=== PATIENT | female | born 1950 | race Caucasian/White ===

== ENCOUNTER 2024-01-25 15:00 | Outpatient (OUT) | payer MEDICARE, MEDICAID, SELFPAY | END 2024-01-25 15:01 | disposition home or self-care (01) | LOC: SLEEP 01-26 14:50 | PROVIDERS: PCP Family Medicine; Visit Provider Family Medicine | DX: G47.33 Obstructive sleep apnea (adult) (pediatric) (principal); G25.81 Restless legs syndrome | CPT/HCPCS: 95806 ==

== ENCOUNTER 2024-07-05 15:30 | Outpatient (OUT) | payer MEDICARE, MEDICAID, SELFPAY | END 2024-07-05 15:31 | disposition home or self-care (01) | LOC: SLEEP 07-06 14:47 | PROVIDERS: PCP Psychiatry & Neurology Neurology; Visit Provider Psychiatry & Neurology Neurology | DX: G47.33 Obstructive sleep apnea (adult) (pediatric) (principal) | CPT/HCPCS: 95806 ==

== ENCOUNTER 2024-11-08 11:24 | Observation (INO) | payer MEDICARE, MEDICAID, SELFPAY ==
[2024-11-08] VITALS (26 sets, daily range): BP systolic 128–153; BP diastolic 55–104; PULSE 66–114; TEMP 36.7–36.8; O2SAT 70–98; BMI 56.0; BMI 52.4
--- OUTSIDE RECORDS SUMMARY | 2024-11-08 11:47 | XMS_ITS | CCD ---
Author Organization [facility] Care Team Providers Care Web Production Manager Name Role Phone NEGAR, DR OVIDIO Kyle Admitting Unavailable NADERER, DR OVIDIO Kyle Attending Unavailable NADERER, DR OVIDIO Kyle Primary Care Unavailable NADERER, DR OVIDIO Kyle Consulting Unavailable GRILLIS, DR SERA Ortiz Admitting Unavailabl e GRILLIS, DR SERA Ortiz Attending Unavailabl e NADERER, DR OVIDIO Kyle Primary Care Unavailable Radhaerer Ovidio MOHAN Primary Care Provider OVIDIO BILLS Referring Unavailable NADERER, OVIDIO Primary Care Unavailable LIGIBELJOHN Referring Unavailable NADERER, OVIDIO Primary Care Unavailable PRAMODMARK Attending Unavailable NADERER, OVIDIO Referring Unavailable NADERER, OVIDIO Primary Care Unavailable PRAMODMARK Attending Unavailable NADERER, OVIDIO Referring Unavailable NADERER, OVIDIO Primary Care Unavailable NADERER, OVIDIO Referring Unavailable NADERER, OVIDIO Primary Care Unavailable NADERER, OVIDIO Primary Care Unavailable FREDISEPIDEH Attending Unavailable PRAMODMARK Attending Unavailable NADERER, OVIDIO Referring Unavailable NADERER, OVIDIO Primary Care Unavailable PRAMODMARK Attending Unavailable NADERER, OVIDIO Referring Unavailable NADERER, OVIDIO Primary Care Unavailable NADERER, OVIDIO Referring Unavailable NADERER, OVIDIO Primary Care Unavailable RUSHER, DICK Kyle Attending Unavailable RUSHER, DICK Kyle Attending Unavailable NADERER, OVIDIO Attending Unavailable RUSHER, DICK Kyle Attending Unavailable RUSHER, DICK Kyle Attending Unavailable NADERER, OVIDIO Attending Unavailable NADERER, OVIDIO Attending Unavailable RUSHER, DICK Kyle Attending Unavailable AGUSPARTH Attending Unavailable NADERER, OVIDIO Attending Unavailable DOS SANTOSFABIAN Attending Unavailable GILLMOR, CHOCO Attending Unavailable NADERER, OVIDIO Attending Unavailable Allergies Allergy Classification Reported Allergen(s) Allergy Type Date of Onset Reaction(s) Facility (1 source) Allopurinol Drug Allergy [facility] (2 sources) Aspirin; Translations: [ASPIRIN] Drug Allergy 7 [facility] (1 source) Cephalexin Drug Allergy [facility] (2 sources) NSAIDs; Translations: [NSAIDS (NON-STEROIDAL ANTI-INFLAMMATO RY DRUG)] Drug allergy (disorder) 7 [facility] (20 sources) Cephalexin; Translations: [CEPHALEXIN] Drug Allergy 8 [facility] (20 sources) metFORMIN Drug Allergy 4 GI intolerance [facility] (20 sources) Non-steroidal anti-inflammato ry agent Drug Intolerance 7 [facility] (20 sources) Tetanus vaccine; Translations: [TETANUS TOXOID] Propensity to adverse reactions 7 Unknown [facility] (6 sources) Sertraline Drug Allergy 3 [facility] (1 source) gabapentin; Translations: [GABAPENTIN] Drug Allergy 9 [facility] (1 source) Ibuprofen; Translations: [IBUPROFEN] Drug Allergy 7 [facility] (1 source) Naproxen; Translations: [NAPROXEN] Drug Allergy 7 [facility] Medications Current Medications Medication Drug Class(es) Dates Sig (Normalized) Sig (Original) acetaminophen 500 mg oral tablet (20 sources) acetaminophen (Tylenol) 500 MG tablet 2 tablets Orally once or twice a day prn fever Active acetaminophen 325 mg / HYDROcodone bitartrate 5 mg oral tablet (13 sources) Opioid Agonist Start: 09-28-2024 End: 10-28-2024 take 1 tablet by mouth four times daily as needed for pain HYDROcodone-acetami nophen ([place]) 5-325 MG tablet Indications: Fibromyalgia Take 1 tablet by mouth 4 (four) times a day as needed for severe pain 120 tablet 09/28/2024 10/28/2024 Active Start: 07-26-2024 End: 09-24-2024 take 1 tablet by mouth four times daily as needed for pain HYDROcodone-acetaminophen ([place]) 5-325 MG tablet Indications: Fibromyalgia Take 1 tablet by mouth 4 (four) times a day as needed for severe pain 120 tablet 08/25/2024 09/24/2024 Active acetaminophen 325 mg / oxyCODONE hydrochloride 5 mg oral tablet (18 sources) Opioid Agonist Start: 05-02-2024 End: 07-09-2024 take 1 tablet by mouth four times daily as needed for pain oxyCODONE-acetaminophen (Percocet) 5-325 MG tablet Indications: Spondylosis of 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 Take 1 tablet by mouth 4 (four) times a day as needed for severe pain 120 tablet 06/09/2024 07/09/2024 Active Start: 03-30-2024 take 1 tablet by clarissa th four times daily as needed for pain oxyCODONE-acetaminophen (Percocet) 5-325 MG tablet Indications: Spondylosis of 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 Take 1 tablet by mouth 4 (four) times a day as needed for severe pain 120 tablet 03/30/2024 Active albuterol 0.83 mg/ml inhalation solution (20 sources) beta2-Adrenergic Agonist Start: 08-23-2024 End: 08-25-2024 albuterol (2.5 MG/3ML) 0.083% nebulizer solution Indications: Shortness of breath Take 3 mL (2.5 mg) by nebulization every 4 (four) hours if needed for wheezing or shortness of breath 75 mL 3 08/25/2024 Active Start: 11-09-2023 take 2 puff(s) by in halation every four hours as needed albuterol HFA 90 mcg/act inhaler Indications: Mild intermittent asthma without complication (CMS/HCC) INHALE 2 PUFFS EVERY 4 HOURS NEEDED 8 g 3 11/09/2023 Active End: 08-23-2024 albuterol (2.5 MG/3ML) 0.083 % nebulizer solution as directed Inhalation 3 ml nebulizer bid prn 08/23/2024 Discontinued (Reorder) alendronic acid 70 mg oral tablet (20 sources) Bisphosphonate Start: 10-14-2023 alendronate (Fosamax) 70 MG tablet Indications: Osteoporosis, postmenopausal (CMS/HCC) TAKE 1 TABLET ONE TIME WEEKLY 12 tablet 3 10/14/2023 Active apixaban 5 mg oral tablet (20 sources) Factor Xa Inhibitor Start: 12-10-2023 Eliquis 5 MG tablet Indications: Cerebrovascular disease, unspecified TAKE 1 TABLET TWICE DAILY 180 tablet 3 12/10/2023 Active atorvastatin 40 mg oral tablet (20 sources) HMG-CoA Reductase Inhibitor Start: 02-26-2024 End: 2025 take 1 tablet by mouth once daily atorvastatin (Lipitor) 40 MG tablet Indications: Cerebrovascular disease, unspecified Take 1 tablet (40 mg) by mouth Daily 30 tablet 11 02/26/2024 2025 Active Blood Glucose Calibration (Prodigy Control Solution) High solution (20 sources) Start: 11-16-2023 Blood Glucose Calibration (Prodigy Control Solution) High solution Indications: Type 2 diabetes mellitus with microalbuminuria, without long-term current use of insulin (CMS/[employer]) 1 each by Other route Daily 1 each 11/16/2023 Active Blood Glucose Monitoring Suppl (Prodigy Autocode Blood Glucose) w/Device kit (20 sources) Start: 11-16-2023 Blood Glucose Monitoring Suppl (Prodigy Autocode Blood Glucose) w/Device kit Indications: Type 2 diabetes mellitus with microalbuminuria, without long-term current use of insulin (CMS/[facility]) 1 each by Other route Daily 1 kit 11/16/2023 Active bumetanide 2 mg oral tablet (20 sources) Loop Diuretic Start: 09-01-2024 bumetanide (Bumex) 2 MG tablet Indications: Lymphedema TAKE 1 TABLET EVERY DAY 90 tablet 3 09/01/2024 Active Start: 06-23-2024 take 1 tablet by clarissa th once daily bumetanide (Bumex) 2 MG tablet Indications: Lymphedema Take 1 tablet (2 mg) by mouth Daily 90 tablet 06/23/2024 Active Start: 04-29-2024 End: 04-29-2024 take 1 tablet by mouth once daily bumetanide (Bumex) 2 MG tablet Indications: Lymphedema Take 1 tablet (2 mg) by mouth Daily 30 tablet 5 04/29/2024 Active cefdinir 300 mg oral capsule (2 sources) Cephalosporin Antibacterial Start: 09-19-2024 End: 09-29-2024 take 1 capsule by mouth in the morning cefdinir (Omnicef) 300 MG capsule Indications: Acute non-recurrent pansinusitis Take 1 capsule (300 mg) by mouth in the morning and 1 capsule (300 mg) before bedtime. Do all this for 10 days. 20 capsule 09/19/2024 09/29/2024 Active cholecalciferol 0.05 mg oral capsule (20 sources) Vitamin D take 1 capsule by mouth in the morning cholecalciferol (Vitamin D-3) 50 MCG (1999 UT) capsule Take 2,000 Units by mouth in the morning. Active diclofenac sodium 0.01 mg/mg topical gel (20 sources) Nonsteroidal Anti-inflammatory Drug Start: 07-07-2024 diclofenac sodium (Voltaren) 1 % gel Indications: Bilateral primary osteoarthritis of knee Apply 2 g topically 4 (four) times a day as needed for pain 60 g 3 07/07/2024 Active Start: 04-15-2024 diclofenac sod ium (Voltaren) 1 % gel Indications: Bilateral primary osteoarthritis of knee Apply 2 g topically 4 (four) times a day as needed for pain 60 g 3 04/15/2024 Active doxepin hydrochloride 50 mg oral capsule (20 sources) Tricyclic Antidepressant Start: 09-20-2024 take 1 capsule by mouth once at bedtime doxepin (SINEquan) 50 MG capsule Indications: Primary insomnia Take 1 capsule (50 mg) by mouth at bedtime 1-2 po q hs 90 capsule 3 09/20/2024 Active Start: 09-19-2024 doxepin (SINEq uan) 10 MG capsule Indications: Primary insomnia TAKE 1 TO 2 CAPSULES AT BEDTIME 180 capsule 3 09/19/2024 Active Start: 09-19-2024 take 1 capsule by mo uth once at bedtime doxepin (SINEquan) 50 MG capsule Indications: Primary insomnia Take 1 capsule (50 mg) by mouth at bedtime 1-2 po q hs 90 capsule 3 09/19/2024 Active Start: 09-19-2024 take 1 capsule by mo uth once at bedtime doxepin (SINEquan) 50 MG capsule Indications: Primary insomnia Take 1 capsule (50 mg) by mouth at bedtime 1-2 po q hs 90 capsule 3 09/19/2024 Active Start: 05-30-2024 End: 09-19-2024 take 1 capsule by mouth once at bedtime doxepin (SINEquan) 10 MG capsule Indications: Primary insomnia 1-2 po q hs 60 capsule 2 07/04/2024 09/19/2024 Discontinued (Reorder) furosemide 80 mg oral tablet (6 sources) Loop Diuretic Start: 04-15-2024 End: 04-29-2024 furosemide (Lasix) 80 MG tablet Indications: Generalized edema TAKE 1 TABLET TWICE DAILY 180 tablet 3 04/15/2024 04/29/2024 Discontinued Start: 01-05-2023 End: 04-29-2024 take 4 tablets by mouth in the morning furosemide (Lasix) 40 MG tablet Take 160 mg by mouth in the morning. 01/05/2023 04/29/2024 Discontinued gabapentin 300 mg oral capsule (20 sources) Anti-epileptic Agent Start: 09-21-2023 End: 09-19-2024 gabapentin (Neurontin) 300 MG capsule Indications: Bilateral primary osteoarthritis of knee TAKE 1 CAPSULE THREE TIMES DAILY 270 capsule 3 09/21/2023 09/19/2024 Discontinued isopropyl alcohol 0.7 ml/ml medicated pad (20 sources) Start: 11-16-2023 Alcohol Swabs (B-D SINGLE USE SWABS REGULAR) pads Indications: Type 2 diabetes mellitus with microalbuminuria, without long-term current use of insulin (CMS/HCC) 1 each by Other route Daily 200 each 3 11/16/2023 Active levothyroxine sodium 0.3 mg oral tablet (20 sources) l-Thyroxine Start: 07-25-2024 levothyroxine (Synthroid, Unithroid) 300 MCG tablet Indications: Post-operative hypothyroidism (CMS/HCC) TAKE 1 TABLET EVERY MORNING 90 tablet 3 07/25/2024 Active levothyroxine (S ynthroid, Unithroid) 300 MCG tablet 1 (one) time each day at the same time. Active liothyronine sodium 0.005 mg oral tablet (20 sources) l-Triiodothyronine Start: 12-10-2023 End: 06-28-2024 take 1 tablet by mouth once daily liothyronine (Cytomel) 5 MCG tablet Indications: Post-operative hypothyroidism (CMS/HCC) Take 1 tablet (5 mcg) by mouth Daily 14 tablet 06/29/2024 Active loperamide hydrochloride 2 mg oral capsule (20 sources) Opioid Agonist End: 09-19-2024 loperamide (Imodium) 2 MG capsule 1 capsule. 09/19/2024 Discontinued midodrine hydrochloride 10 mg oral tablet (3 sources) alpha-Adrenergic Agonist End: 04-29-2024 take 1 tablet by mouth in the morning midodrine (Proamatine) 10 MG tablet Take 10 mg by mouth in the morning and 10 mg before bedtime. 04/29/2024 Discontinued mirtazapine 15 mg oral tablet (11 sources) Start: 09-19-2024 mirtazapine (Remeron) 15 MG tablet Indications: Primary insomnia Take 1/2-1 at bedtime, must wear mask when taking 09/19/2024 Active Start: 08-17-2024 End: 09-19-2024 mirtazapine (Remeron) 15 MG tablet Indications: ETIENNE (obstructive sleep apnea) Take 1/2-1 at bedtime, must wear mask when taking 30 tablet 2 08/24/2024 09/19/2024 Discontinued nitrofurantoin, macrocrystals 25 mg / nitrofurantoin, monohydrate 75 mg oral capsule (20 sources) Nitrofuran Antibacterial Start: 08-29-2024 nitrofurantoin, macrocrystal-monohydrate, (Macrobid) 100 MG capsule Indications: Recurrent urinary tract infection TAKE 1 CAPSULE EVERY DAY 90 capsule 3 08/29/2024 Active Start: 11-18-2023 nitrofurantoin , macrocrystal-monohydrate, (Macrobid) 100 MG capsule Indications: Recurrent urinary tract infection TAKE 1 CAPSULE EVERY DAY 90 capsule 3 11/18/2023 Active nystatin 230596 unt/ml topical cream (20 sources) Polyene Antifungal Start: 07-07-2024 nystatin (M ycostatin) cream Indications: Candidiasis of skin Apply topically 2 (two) times a day 30 g 2 07/07/2024 Active Start: 04-15-2024 nystatin (Myco statin) cream Indications: Candidiasis of skin Apply topically 2 (two) times a day 30 g 2 04/15/2024 Active omeprazole 40 mg delayed release oral capsule (20 sources) Proton Pump Inhibitor Start: 09-16-2024 omeprazole (PriLOSEC ) [address] capsule Indications: Gastroesophageal reflux disease without esophagitis TAKE 1 CAPSULE EVERY MORNING BEFORE A MEAL 90 capsule 3 09/16/2024 Active Start: 07-06-2024 take 1 capsule by mo uth before mealtime omeprazole (PriLOSEC) [address] capsule Indications: Gastroesophageal reflux disease without esophagitis Take 1 capsule (40 mg) by mouth in the morning. Take before meals. 90 capsule 07/06/2024 Active take 1 capsule by mo uth before mealtime omeprazole (PriLOSEC) [address] capsule Take 40 mg by mouth in the morning. Take before meals. Do not crush or chew.. Active PARoxetine hydrochloride 20 mg oral tablet (20 sources) Serotonin Reuptake Inhibitor Start: 12-10-2023 PARoxetine (Paxil) 20 MG tablet Indications: Generalized anxiety disorder (CMS/HCC) TAKE 1 TABLET EVERY DAY 90 tablet 3 12/10/2023 Active predniSONE 50 mg oral tablet (2 sources) Start: 09-19-2024 End: 09-25-2024 take 1 tablet by mouth once daily predniSONE (Deltasone) 50 MG tablet Indications: Acute non-recurrent pansinusitis Take 1 tablet (50 mg) by mouth Daily for 6 days 6 tablet 09/19/2024 09/25/2024 Active QUEtiapine 50 mg oral tablet (20 sources) Atypical Antipsychotic Start: 09-28-2024 take 1 tablet by mouth at bedtime QUEtiapine (SEROquel) 50 MG tablet Indications: Primary insomnia Take 1 tablet (50 mg) by mouth at bedtime 90 tablet 3 09/28/2024 Active Start: 05-11-2024 take 1 tablet by clarissa th at bedtime QUEtiapine (SEROquel) 50 MG tablet Indications: Primary insomnia Take 1 tablet (50 mg) by mouth at bedtime 30 tablet 3 05/11/2024 Active rOPINIRole 5 mg oral tablet (20 sources) Nonergot Dopamine Agonist Start: 03-08-2024 rOPINIRole (Requip) 5 MG tablet Indications: Restless legs TAKE 1 TABLET THREE TIMES DAILY 270 tablet 3 03/08/2024 Active Start: 01-16-2023 End: 04-29-2024 rOPINIRole (Requip) 4 MG tab let 01/16/2023 04/29/2024 Discontinued 1 mg dose 1.5 ml semaglutide 1.34 mg/ml pen injector (20 sources) Start: 02-29-2024 inject 1 mg by subcutaneous injection every week semaglutide (Ozempic) 2 MG/1.5ML solution pen-injector Indications: Type 2 diabetes mellitus with microalbuminuria, without long-term current use of insulin (CMS/HCC) Inject 1 mg under the skin 1 (one) time per week 6 each 12 02/29/2024 Active tiZANidine 4 mg oral tablet (20 sources) Central alpha-2 Adrenergic Agonist Start: 07-11-2024 tiZANidine (Zanaflex) 4 MG tablet Indications: Fibromyalgia TAKE 1 TABLET THREE TIMES DAILY NEEDED 270 tablet 3 07/11/2024 Active Start: 09-29-2023 tiZANidine (Za naflex) 4 MG tablet Indications: Fibromyalgia TAKE 1 TABLET THREE TIMES DAILY NEEDED 270 tablet 3 09/29/2023 Active traZODone hydrochloride 50 mg oral tablet (5 sources) Serotonin Reuptake Inhibitor End: 09-19-2024 take 1 tablet by mouth at bedtime traZODone (Desyrel) 50 MG tablet Take 50 mg by mouth at bedtime 09/19/2024 Discontinued End: 04-29-2024 take 1 tablet by mouth once daily at bedtime traZODone (Desyrel) 150 MG tablet 1 tablet Orally Once a day AT BEDTIME 04/29/2024 Discontinued zolpidem tartrate 5 mg oral tablet (6 sources) gamma-Aminobutyric Acid-ergic Agonist Start: 04-29-2024 End: 05-29-2024 zolpidem (Ambien) 5 MG tablet Indications: Primary insomnia Take 1 tablet (5 mg) by mouth as needed at bedtime for sleep 30 tablet 2 04/29/2024 05/29/2024 Active Completed/Discontinued Medications Medication Drug Class(es) Dates Sig (Normalized) Sig (Original) 1 ml methylPREDNISolone acetate 40 mg/ml injection (4 sources) Corticosteroid Start: End: methylPREDNISolone acetate (DEPO-Medrol) injection 40 mg Start: 07-13-2024 End: 07-13-2024 40 mg, Intra-articular, Once PRN Procedure, Starting on Thu07/13/24 at 0919, For 1 dose Problems Active Problems Problem Classification Problem Date Documented Date Episodic/Chronic Anxiety disorders (20 sources) Generalized anxiety disorder; Translations: [Generalized anxiety disorder] Onset: 08-24-2023 08-24-2023 Chronic Asthma (20 sources) Mild intermittent asthma; Translations: [Mild intermittent asthma, uncomplicated] Onset: 08-24-2023 08-24-2023 Chronic Chronic kidney disease (20 sources) Chronic kidney disease stage 3B ; Translations: [Stage 3b chronic kidney disease (CKD)] Onset: 08-24-2023 08-24-2023 Chronic Chronic kidney disease (1 source) Chronic kidney disease; Translations: [Chronic kidney disease, stage 3b] Onset: 02-03-2024 Chronic ulcer of skin (1 source) Pressure ulcer of left hip, stage 2; Translations: [Pressure ulcer of left hip, stage 2] Onset: 09-11-2023 Chronic Complications of surgical procedures or medical care (20 sources) Postoperative hypothyroidism; Translations: [Postprocedural hypothyroidism] Onset: 08-24-2023 08-24-2023 Chronic Diabetes mellitus with complications (20 sources) Type 2 diabetes mellitus with hyperglycemia; Translations: [Type 2 diabetes mellitus] Onset: 07-14-2022 Chronic Esophageal disorders (20 sources) Gastroesophageal reflux disease; Translations: [Gastro-esophageal reflux disease without esophagitis] Onset: 08-24-2023 08-24-2023 Chronic Genitourinary symptoms and ill-defined conditions (2 sources) Proteinuria, unspecified; Translations: [Dysuria] Onset: 03-23-2024 Episodic Miscellaneous mental health disorders (20 sources) Primary insomnia; Translations: [Primary insomnia] Onset: 08-24-2023 08-24-2023 Chronic Mood disorders (20 sources) Recurrent major depressive episodes, mild ; Translations: [Major depressive disorder, recurrent, mild] Onset: 08-24-2023 08-24-2023 Chronic Mycoses (2 sources) Onychomycosis due to dermatophyte ; Translations: [Tinea unguium] 05-10-2024 Episodic Osteoarthritis (20 sources) Primary gonarthrosis, bilateral; Translations: [Bilateral primary osteoarthritis of knee] Onset: 08-24-2023 08-24-2023 Chronic Osteoporosis (20 sources) Postmenopausal osteoporosis; Translations: [Age-related osteoporosis without current pathological fracture] Onset: 08-24-2023 08-24-2023 Chronic Other and ill-defined cerebrovascular disease (20 sources) Cerebrovascular disease; Translations: [Cerebrovascular disease, unspecified] Onset: 08-24-2023 08-24-2023 Chronic Other diseases of veins and lymphatics (20 sources) Lymphedema; Translations: [Lymphedema, not elsewhere classified] Onset: 08-24-2023 04-29-2024 Chronic Other diseases of veins and lymphatics (1 source) Lymphedema, not elsewhere classified; Translations: [Lymphedema, not elsewhere classified] Onset: 03-04-2023 Chronic Other diseases of veins and lymphatics (2 sources) Peripheral venous insufficiency; Translations: [Venous insufficiency (chronic) (peripheral)] 05-10-2024 Episodic Other hereditary and degenerative nervous system conditions (20 sources) Restless legs; Translations: [Restless legs syndrome] Onset: 08-24-2023 08-24-2023 Chronic Other lower respiratory disease (4 sources) Hypoxia; Translations: [Hypoxemia] 08-17-2024 Episodic Other lower respiratory disease (2 sources) Snoring; Translations: [Snoring] 05-30-2024 Episodic Other non-traumatic joint disorders (2 sources) Pain in left knee; Translations: [Pain in joint, lower leg] 07-12-2024 Episodic Other nutritional; endocrine; and metabolic disorders (20 sources) Morbid obesity; Translations: [Morbid (severe) obesity due to excess calories] Onset: 08-24-2023 08-24-2023 Chronic Other nutritional; endocrine; and metabolic disorders (2 sources) Obesity caused by energy imbalance; Translations: [Morbid (severe) obesity due to excess calories] 04-29-2024 Chronic Other nutritional; endocrine; and metabolic disorders (2 sources) Body mass index 40+ - severely obese; Translations: [Body mass index (BMI) 50.0-59.9, adult] 04-29-2024 Chronic Other nutritional; endocrine; and metabolic disorders (6 sources) Severe obesity; Translations: [Class 3 severe obesity due to excess calories with serious comorbidity and body mass index (BMI) of 50.0 to 59.9 in adult ([facility])] Onset: 08-24-2023 09-19-2024 Chronic Other skin disorders (2 sources) Dystrophia unguium; Translations: [Nail dystrophy] 05-10-2024 Episodic Other upper respiratory infections (6 sources) Acute pansinusitis; Translations: [Acute pansinusitis, unspecified] Onset: 09-19-2024 09-19-2024 Episodic Residual codes; unclassified (20 sources) Obstructive sleep apnea syndrome; Translations: [Obstructive sleep apnea (adult) (pediatric)] Onset: 08-24-2023 08-24-2023 Chronic Residual codes; unclassified (4 sources) Hypersomnia; Translations: [Hypersomnia, unspecified] 08-17-2024 Chronic Residual codes; unclassified (2 sources) Disturbance in sleep behavior; Translations: [Sleep disorder, unspecified] 05-30-2024 Episodic Retinal detachments; defects; vascular occlusion; and retinopathy (20 sources) Bilateral degeneration of macula; Translations: [Unspecified macular degeneration] Onset: 08-24-2023 08-24-2023 Chronic Spondylosis; intervertebral disc disorders; other back problems (20 sources) Cervical spondylosis without myelopathy; Translations: [Spondylosis without myelopathy or radiculopathy, cervical region] Onset: 01-01-2017 08-24-2023 Chronic Unclassified (1 source) ILL Onset: 04-07-2024 Unclassified (1 source) Wound Check Onset: 09-11-2023 Past or Other Problems Problem Classification Problem Date Documented Date Episodic/Chronic Allergic reactions (1 source) Other specified dermatitis; Translations: [Other specified dermatitis] Onset: 09-30-2023 Episodic Bacterial infection; unspecified site (20 sources) History of methicillin resistant Staphylococcus aureus infection; Translations: [Personal history of Methicillin resistant Staphylococcus aureus infection] Onset: 08-24-2023 08-24-2023 Episodic Mood disorders (18 sources) Mood disorders Onset: 06-09-2024 06-09-2024 Other circulatory disease (20 sources) Orthostatic hypotension; Translations: [Orthostatic hypotension] Onset: 02-29-2024 02-29-2024 Episodic Other connective tissue disease (20 sources) Fibromyalgia; Translations: [Fibromyalgia] Onset: 08-24-2023 08-24-2023 Episodic Other connective tissue disease (1 source) Other specified soft tissue disorders; Translations: [Other specified soft tissue disorders] Onset: 04-07-2024 Episodic Other connective tissue disease (1 source) Leg swelling symptom Onset: 04-07-2024 Episodic Other lower respiratory disease (20 sources) Dyspnea; Translations: [Shortness of breath] Onset: 08-24-2023 08-24-2023 Episodic Other non-traumatic joint disorders (20 sources) Multiple joint pain; Translations: [Pain in unspecified joint] Onset: 08-24-2023 08-24-2023 Episodic Residual codes; unclassified (1 source) Edema, generalized; Translations: [Generalized edema] Onset: 08-24-2023 08-24-2023 Episodic Skin and subcutaneous tissue infections (20 sources) Cellulitis of left lower limb; Translations: [Cellulitis of left lower limb] Onset: 08-24-2023 Resolved: 08-24-2023 08-24-2023 Episodic Results Test Name Value Interpretation Reference Range Facility [facility] 09-05-2024 Albumin [Mass/Vol] 3.7 g/dL Normal 3.2-5.3 [facility] Comment on above: Performed By: #### C BC, C34, 1751-7, BMP, 31689-8, 2777-1, 2731-8, 01483-3 #### [facility] ([id number]) [address], [address] [place], [place] [address] BASIC METABOLIC PANLon 09-05 Anion gap [Moles/Vol] 11 mmol/L Normal 5-15 [facility] Comment on above: Performed By: #### Triny BC, C34, 1751-7, BMP, 04330-9, 2777-1, 2731-8, 42245-1 #### [facility] ([id number]) [address], [address] [place] [address] Calcium [Mass/Vol] 8.6 mg/dL Normal 8.5-10.5 [facility] Comment on above: Performed By: #### Triny BC, C34, 1751-7, BMP, 46698-5, 2777-1, 2731-8, 43672-5 #### [facility] ([id number]) [address], [address] [place] [address] Chloride [Moles/Vol] 103 mmol/L Normal 98-109 [facility] Comment on above: Performed By: #### Triny BC, C34, 1751-7, BMP, 15957-3, 2777-1, 2731-8, 83264-8 #### [facility] ([id number]) [address], [address] [place] [address] CO2 [Moles/Vol] 32 mmol/L Normal 22-32 [facility] Comment on above: Performed By: #### C BC, C34, 1751-7, BMP, 18898-6, 2777-1, 2731-8, 36953-9 #### [facility] ([id number]) [address], [address] [place] [address] Creatinine [Mass/Vol] 1.27 mg/dL High 0.40-1.00 [facility] Comment on above: Result Comment: METH OD TRACEABLE TO IDMS STANDARD Performed By: #### C SANJANA, C34, 1751-7, BMP, 71514-4, 2777-1, 2731-8, 76953-8 #### [facility] ([id number]) [address] [place] [address] GFR/1.73 sq M.predicted among non-blacks MDRD (S/P/Bld) [Vol rate/Area] 44 mL/min/{1.73_m2} Low >59 [facility] Comment on above: Result Comment: Reported eGFR is based on the CKD-EPI 2020 equation that does not use a race coefficient. Performed By: #### C SANJANA, C34, 1751-7, BMP, 18292-0, 2777-1, 2731-8, 16264-1 #### [facility] ([id number]) [address], [address] [place] [address] Glucose [Mass/Vol] 123 mg/dL High 65-99 [facility] Comment on above: Performed By: #### C BC, C34, 1751-7, BMP, 44871-2, 2777-1, 2731-8, 78067-5 #### [facility] ([id number]) [address], [address] [place] [address] Potassium [Moles/Vol] 4.2 mmol/L Normal 3.5-5.0 [facility] Comment on above: Performed By: #### C BC, C34, 1751-7, BMP, 12563-7, 2777-1, 2731-8, 73542-3 #### [facility] ([id number]) [address], [address] [place] [address] Sodium [Moles/Vol] 146 mmol/L Normal 134-146 [facility] Comment on above: Performed By: #### C BC, C34, 1751-7, BMP, 91076-3, 2777-1, 2731-8, 00374-6 #### [facility] ([id number]) [address], [address] [place] [address] Urea nitrogen [Mass/Vol] 20 mg/dL Normal 5-27 [facility] Comment on above: Performed By: #### C BC, C34, 1751-7, BMP, 79973-9, 2776-1, 273-8, 75936-2 #### [facility] ([id number]) [address], [address] [place] [address] CBC AND AUTO DIFFon 12-30-20 24 ABSOLUTE BASOPHIL 0.1 X10E9/L Normal 0.0-0.2 [facility] Comment on above: Performed By: #### C BC, C34, 1751-7, BMP, 46276-0, 7-1, 273-8, 05523-2 #### [facility] ([id number]) [address], [address] [place] [address] ABSOLUTE NEUTROPHIL 2.9 X10E9/L Normal 1.5-6.6 [facility] Comment on above: Performed By: #### C BC, C34, 1751-7, BMP, 84941-9, 2777-1, 2731-8, 27096-4 #### [facility] ([id number]) [address], [address] [place] [address] Basophils/100 WBC (Bld) 1.6 % Normal [facility] Comment on above: Performed By: #### C BC, C34, 1751-7, BMP, 00409-6, 2777-1, 2731-8, 66005-3 #### [facility] ([id number]) [address], [address] [place] [address] Eosinophils (Bld) [#/Vol] 0.3 10*3/uL Normal 0.0-0.4 [facility] Comment on above: Performed By: #### C BC, C34, 1751-7, BMP, 90641-0, 2777-1, 2731-8, 94982-6 #### [facility] ([id number]) [address], [address] [place] [address] Eosinophils/100 WBC (Bld) 6.3 % Normal [facility] Comment on above: Performed By: #### C BC, C34, 1751-7, BMP, 83547-4, 2777-1, 2731-8, 52500-4 #### [facility] ([id number]) [address] [address] [address] [place] [address] Erythrocyte distribution width (RBC) [Ratio] 17.9 % High 11.5-15.0 [facility] Comment on above: Performed By: #### C BC, C34, 1751-7, BMP, 61679-1, 2777-1, 2731-8, 22729-9 #### [facility] ([id number]) [address], [address] [place] [address] Hematocrit (Bld) [Volume fraction] 42.6 % Normal 35-47 [facility] Comment on above: Performed By: #### C BC, C34, 1751-7, BMP, 29901-2, 2777-1, 2731-8, 40781-3 #### [facility] ([id number]) [address], [address] [place] [address] Hemoglobin (Bld) [Mass/Vol] 13.2 g/dL Normal 11.7-15.5 [facility] Comment on above: Performed By: #### C BC, C34, 1751-7, BMP, 45238-6, 2777-1, 2731-8, 54701-3 #### [facility] ([id number]) [address], [address] [place] [address] Lymphocytes (Bld) [#/Vol] 1.2 10*3/uL Normal 1.0-3.5 [facility] Comment on above: Performed By: #### Triny BC, C34, 1751-7, BMP, 23282-6, 2777-1, 2731-8, 52712-1 #### [facility] ([id number]) [address], [address] [place] [address] Lymphocytes/100 WBC (Bld) 24.3 % Normal [facility] Comment on above: Performed By: #### C BC, C34, 1751-7, BMP, 04443-3, 2777-1, 2731-8, 69914-2 #### [facility] ([id number]) [address], [address] [place] [address] MCH (RBC) [Entitic mass] 24.5 pg Low 27-34 [facility] Comment on above: Performed By: #### Triny BC, C34, 1751-7, BMP, 19734-8, 2777-1, 2731-8, 23059-0 #### [facility] ([id number]) [address], [address] [place] [address] MCHC (RBC) [Mass/Vol] 31.1 g/dL Low 32-36 [facility] Comment on above: Performed By: #### Triny BC, C34, 1751-7, BMP, 83543-8, 2777-1, 2731-8, 66064-7 #### [facility] ([id number]) [address], [address] [place] [address] MCV (RBC) [Entitic vol] 79 fL Low 80-100 [facility] Comment on above: Performed By: #### C BC, C34, 1751-7, BMP, 46953-6, 2777-1, 2731-8, 49033-7 #### [facility] ([id number]) [address], [address] [place] [address] Monocytes (Bld) [#/Vol] 0.4 10*3/uL Normal 0-0.9 [facility] Comment on above: Performed By: #### Triny BC, C34, 1751-7, BMP, 17602-8, 2777-1, 2731-8, 78422-6 #### [facility] ([id number]) [address], [address] [place] [address] Monocytes/100 WBC (Bld) 8.0 % Normal [facility] Comment on above: Performed By: #### Triny BC, C34, 1751-7, BMP, 40993-8, 2777-1, 2731-8, 10154-6 #### [facility] ([id number]) [address], [address] [place] [address] Neutrophils/100 WBC (Bld) 59.8 % Normal [facility] Comment on above: Performed By: #### Triny BC, C34, 1751-7, BMP, 31628-5, 2777-1, 2731-8, 35006-9 #### [facility] ([id number]) [address], [address] [place] [address] Platelet mean volume (Bld) [Entitic vol] 9.5 fL Normal 7-12 [facility] Comment on above: Performed By: #### Triny BC, C34, 1751-7, BMP, 05279-0, 2777-1, 2731-8, 41737-0 #### [facility] ([id number]) [address], [address] [place] [address] Platelets (Bld) [#/Vol] 153 10*3/uL Normal 150-450 [facility] Comment on above: Performed By: #### C BC, C34, 1751-7, BMP, 89470-2, 2777-1, 2731-8, 05490-7 #### [facility] ([id number]) [address], [address] [place] [address] RBC COUNT 5.40 X10E12/L High 3.80-5.20 [facility] Comment on above: Performed By: #### C BC, C34, 1751-7, BMP, 23900-9, 2777-1, 2731-8, 07783-7 #### [facility] ([id number]) [address], [address] [place] [address] WBC (Bld) [#/Vol] 4.9 10*3/uL Normal 4.0-11.0 [facility] Comment on above: Performed By: #### C BC, C34, 1751-7, BMP, 36680-1, 2777-1, 2731-8, 90969-1 #### [facility] ([id number]) [address], [address] [place] [address] HGB A1C (GLYCO-HGB)on 2023 Glucose [Mass/Vol] 134 mg/dL Normal [facility] Comment on above: Performed By: #### C BC, C34, 1751-7, BMP, 67959-2, 2777-1, 2731-8, 50065-2 #### [facility] ([id number]) [address], [address] [place] [address] HbA1c (Bld) [Mass fraction] 6.3 % High 4.4-5.6 [facility] Comment on above: Result Comment: NOTE ADA Guidelines Result HgbA1c Normal : less than 5.7 % Prediabetes : 5.7 % to 6.4 % Diabetes : > 6.4 % Use with caution in patients with abnormal hemoglobin variants as the half-life of red blood cells and in vivo glycation rates are affected. Performed By: #### C ASNJANA, C34, 175-7, BMP, 83063-2, 2776-1, 2730-8, 85815-8 #### [facility] ([id number]) [address], [address] [place] [address] MAGNESIUMon 09-05-2024 Magnesium [Mass/Vol] 2.0 mg/dL Normal 1.8-2.6 [facility] Comment on above: Performed By: #### Triny ALLAN, C34, 175-7, BMP, 82061-3, 2776-09, 2730-, 84945-4 #### [facility] ([id number]) [address], [address] [place] [address] MICROALBUMIN - ALBUMIN:CREAT ININE URINE RATIOon 09-05-2024 ALB/CREAT RATIO 59.4 mg/g creat High 0.0-30.0 [facility] Comment on above: Performed By: #### Jerel CARR, 0 #### [facility] ([id number]) [address], [address] [place] [address] Albumin DL <= 20 mg/L (U) [Mass/Vol] 1.2 mg/dL Normal 0.0-1.9 [facility] Comment on above: Performed By: #### Jerel CARR, 0 #### [facility] ([id number]) [address], [facility] [address] [place] [address] URINE CREAT 20.19 mg/dL Normal [facility] Comment on above: Performed By: #### Jerel CARR, 0 #### [facility] ([id number]) [address], [address] [place] [address] PHOSPHORUSon 09-05-2024 Phosphate [Mass/Vol] 3.3 mg/dL Normal 2.4-4.9 [facility] Comment on above: Performed By: #### C BC, C34, 1751-7, BMP, 60470-9, 2777-1, 2731-8, 35668-3 #### [facility] ([id number]) [address], [address] [place] [address] Parathyrin.intact [Mass/Vol] on 09-05-2024 PTH INTACT 111 pg/mL High [facility] Comment on above: Performed By: #### C BC, C34, 1751-7, BMP, 47809-6, 2777-1, 2731-8, 06878-4 #### [facility] ([id number]) [address], [address] [place] [address] URINALYSISon 09-05-2024 Bilirubin Ql (U) Negative Normal NEG [facility] Comment on above: Performed By: #### Jerel CARR, 0 #### [facility] ([id number]) [address], [address] [place] [address] BLOOD/HGB Negative Normal NEG [facility] Comment on above: Performed By: #### Jerel CARR, 0 #### [facility] ([id number]) [address], [address] [place] [address] Color (U) YELLOW Normal YELLOW [facility] Comment on above: Performed By: #### Jerel CARR, 0 #### [facility] ([id number]) [address], [address] [place] [address] Glucose Ql (U) Negative Normal NEG [facility] Comment on above: Performed By: #### Jerel CARR, 3051-0 #### [facility] ([id number]) [address], [address] [place] [address] Ketones Ql (U) Negative Normal NEG [facility] Comment on above: Performed By: #### Jerel CARR, #### [facility] ([id number]) [address], [address] [place] [address] Leukocyte esterase Test strip Ql (U) Negative Normal NEG [facility] Comment on above: Performed By: #### Jerel CARR, #### [facility] ([id number]) [address], [address] [place] [address] Nitrite Ql (U) Negative Normal NEG [facility] Comment on above: Performed By: #### Jerel CARR, #### [facility] ([id number]) [address], [address] [place] [address] pH (U) 6.5 [pH] Normal 5.0-8.5 [facility] Comment on above: Performed By: #### Jeerl CARR, #### [facility] ([id number]) [address], [address] [place] [address] Protein Ql (U) Negative Normal NEG [facility] Comment on above: Performed By: #### Jerel CARR, #### [facility] ([id number]) [address] [place] [address] Specific gravity (U) [Rel density] 1.010 Normal 1.003-1.035 [facility] Comment on above: Performed By: #### Jerel CARR, #### [facility] ([id number]) [address], [address] [place] [address] TURBIDITY CLEAR Normal CLEAR [facility] Comment on above: Performed By: #### Jerel CARR, 3051-0 #### [facility] ([id number]) [address] [place] [address] Urobilinogen (U) [Mass/Vol] mg/dL Normal <1.1 [facility] Comment on above: Performed By: #### T BRUNO, 3051-0 #### [facility] ([id number]) [address], [address] [place] [address] Vitamin D+Metabolites [Mass/ Vol]on 09-05-2024 VITAMIN D 25 HYD TOT 42.3 ng/mL Normal 30-100 [facility] Comment on above: Result Comment: Vitamin D status 25 [place] Vitamin D Deficiency <20 ng/mL Insufficiency 20-29 ng/mL Sufficiency 30-100 ng/mL Toxicity >100 ng/mL NOTE: A pediatric reference range has not been established by the linen room attendant of this kit. The [employer] recommends a Vitamin D level of = or >20ng/mL in infants and children. Performed By: #### C BC, C34, 1751-7, BMP, 29208-5, 2777-1, 2731-8, 81583-4 #### [facility] ([id number]) [address] [place] [address] No Panel Informationon 07-13 Fabian Dos Santos NP 07/13/2024 9:20 AM L Inj/Asp: L knee on 07/13/2024 9:19 AM Indications: pain Details: anterolateral approach Medications: 40 mg methylPREDNISolone acetate 40 MG/ML Outcome: tolerated well, no immediate complications Site was cleaned with isopropyl alcohol Procedure, treatment alternatives, risks and benefits explained, specific risks discussed. Consent was given by the patient. [facility] CBC AND AUTO DIFFon 04-07-20 24 ABSOLUTE BASOPHIL 0.0 X10E9/L Normal 0.0-0.2 [facility] Comment on above: Performed By: #### T BRUNO, #### [facility] ([id number]) [address], [address] [place] [address] ABSOLUTE NEUTROPHIL 3.7 X10E9/L Normal 1.5-6.6 [facility] Comment on above: Performed By: #### T HYR, 0 #### [facility] ([id number]) [address] [place] [address] Basophils/100 WBC (Bld) 0.8 % Normal [facility] Comment on above: Performed By: #### T HYR, #### [facility] ([id number]) [address] [place] [address] Eosinophils (Bld) [#/Vol] 0.4 10*3/uL Normal 0.0-0.4 [facility] Comment on above: Performed By: #### T HYR, #### [facility] ([id number]) [address] [place] [address] Eosinophils/100 WBC (Bld) 6.3 % Normal [facility] Comment on above: Performed By: #### T HYR, #### [facility] ([id number]) [address] [place] [address] Erythrocyte distribution width (RBC) [Ratio] 19.8 % High 11.5-15.0 [facility] Comment on above: Performed By: #### T HYR, #### [facility] ([id number]) [address] [place] [address] Hematocrit (Bld) [Volume fraction] 39.5 % Normal 35-47 [facility] Comment on above: Performed By: #### T HYR, 0 #### [facility] ([id number]) [address] [place] [address] Hemoglobin (Bld) [Mass/Vol] 12.3 g/dL Normal 11.7-15.5 [facility] Comment on above: Performed By: #### Jerel CARR, #### [facility] ([id number]) [address], [facility] [address] [place] [address] Lymphocytes (Bld) [#/Vol] 1.2 10*3/uL Normal 1.0-3.5 [facility] Comment on above: Performed By: #### Jerel CARR, #### [facility] ([id number]) [address], [facility] [address] [place] [address] Lymphocytes/100 WBC (Bld) 20.1 % Normal [facility] Comment on above: Performed By: #### Jerel CARR, #### [facility] ([id number]) [address], [address] [place] [address] MCH (RBC) [Entitic mass] 24.0 pg Low 27-34 [facility] Comment on above: Performed By: #### Jerel CARR, #### [facility] ([id number]) [address], [facility] [address] [place] [address] MCHC (RBC) [Mass/Vol] 31.1 g/dL Low 32-36 [facility] Comment on above: Performed By: #### Jerel CARR, #### [facility] ([id number]) [address] [address] [place] [address] MCV (RBC) [Entitic vol] 77 fL Low 80-100 [facility] Comment on above: Performed By: #### T BRUNO, #### [facility] ([id number]) [address], [address] [place] [address] Monocytes (Bld) [#/Vol] 0.5 10*3/uL Normal 0-0.9 [facility] Comment on above: Performed By: #### Jerel CARR, #### [facility] ([id number]) [address], [address] [place] [address] Monocytes/100 WBC (Bld) 8.8 % Normal [facility] Comment on above: Performed By: #### Jerel CARR, #### [facility] ([id number]) [address] [place] [address] Neutrophils/100 WBC (Bld) 64.0 % Normal [facility] Comment on above: Performed By: #### Jerel CARR, #### [facility] ([id number]) [address], [address] [place] [address] Platelet mean volume (Bld) [Entitic vol] 9.1 fL Normal 7-12 [facility] Comment on above: Performed By: #### Jerel CARR, #### [facility] ([id number]) [address] [place] [address] Platelets (Bld) [#/Vol] 163 10*3/uL Normal 150-450 [facility] Comment on above: Performed By: #### Jerel CARR, #### [facility] ([id number]) [address] [place] [address] RBC COUNT 5.11 X10E12/L Normal 3.80-5.20 [facility] Comment on above: Performed By: #### Jerel CARR, #### [facility] ([id number]) [address] [place] [address] WBC (Bld) [#/Vol] 5.8 10*3/uL Normal 4.0-11.0 [facility] Comment on above: Performed By: #### Jerel CARR, 0 #### [facility] ([id number]) [address] [place] [address] COMPREHENSIVE METABOLIC PANE Toñito 04-07-2024 Albumin [Mass/Vol] 3.7 g/dL Normal 3.2-5.3 [facility] Comment on above: Performed By: #### T BRUNO, 3050-0 #### [facility] ([id number]) [address] [place] [address] ALP [Catalytic activity/Vol] 100 U/L Normal 39-130 [facility] Comment on above: Performed By: #### Jerel CARR, 3050-0 #### [facility] ([id number]) [address] [place] [address] ALT [Catalytic activity/Vol] 11 U/L Normal 0-31 [facility] Comment on above: Performed By: #### T BRUNO, 3050-0 #### [facility] ([id number]) [address] [place] [address] Anion gap [Moles/Vol] 6 mmol/L Normal 5-15 [facility] Comment on above: Performed By: #### T BRUNO, 3050-0 #### [facility] ([id number]) [address] [place] [address] AST [Catalytic activity/Vol] 16 U/L Normal 0-41 [facility] Comment on above: Performed By: #### T HYR, 3050-0 #### [facility] ([id number]) [address] [place] [address] Bilirubin [Mass/Vol] 0.5 mg/dL Normal 0.3-1.2 [facility] Comment on above: Performed By: #### T BRUNO, 3050-0 #### [facility] ([id number]) [address] [place] [address] Calcium [Mass/Vol] 8.1 mg/dL Low 8.5-10.5 [facility] Comment on above: Performed By: #### Jerel CARR, #### [facility] ([id number]) [address] [place] [address] Chloride [Moles/Vol] 104 mmol/L Normal 98-109 [facility] Comment on above: Performed By: #### Jerel CARR, #### [facility] ([id number]) [address] [place] [address] CO2 [Moles/Vol] 28 mmol/L Normal 22-32 [facility] Comment on above: Performed By: #### Jerel ACRR #### [facility] ([id number]) [address] [place] [address] Creatinine [Mass/Vol] 1.20 mg/dL High 0.40-1.00 [facility] Comment on above: Result Comment: METH OD TRACEABLE TO IDMS STANDARD Performed By: #### Jerel CARR, #### [facility] ([id number]) [address] [place] [address] GFR/1.73 sq M.predicted among non-blacks MDRD (S/P/Bld) [Vol rate/Area] 47 mL/min/{1.73_m2} Low >59 [facility] Comment on above: Result Comment: Reported eGFR is based on the CKD-EPI 2020 equation that does not use a race coefficient. Performed By: #### Jerel CARR, 0 #### [facility] ([id number]) [address] [place] [address] Glucose [Mass/Vol] 153 mg/dL High 65-99 [facility] Comment on above: Performed By: #### Jerel CARR, 3051-0 #### [facility] ([id number]) [address], [address] [place] [address] Potassium [Moles/Vol] 4.8 mmol/L Normal 3.5-5.0 [facility] Comment on above: Performed By: #### T BRUNO, #### [facility] ([id number]) [address], [address] [place] [address] Protein [Mass/Vol] 6.9 g/dL Normal 6.0-8.0 [facility] Comment on above: Performed By: #### Jerel CARR, #### [facility] ([id number]) [address], [address] [place] [address] Sodium [Moles/Vol] 138 mmol/L Normal 134-146 [facility] Comment on above: Performed By: #### Jerel CARR, #### [facility] ([id number]) [address], [address] [place] [address] Urea nitrogen [Mass/Vol] 22 mg/dL Normal 5-27 [facility] Comment on above: Performed By: #### Jerel CARR, #### [facility] ([id number]) [address], [address] [place] [address] MAGNESIUMon 04-07-2024 Magnesium [Mass/Vol] 2.2 mg/dL Normal 1.8-2.6 [facility] Comment on above: Performed By: #### T BRUNO, #### [facility] ([id number]) [address], [address] [place] [address] Natriuretic peptide B [Mass/ Vol]on 04-07-2024 Natriuretic peptide B (Bld) [Mass/Vol] 22 pg/mL Normal <100.0 [facility] Comment on above: Performed By: #### Jerel CARR, 3051-0 #### [facility] ([id number]) [address], [address] [place] [address] URINALYSISon 03-23-2024 Bilirubin Ql (U) Negative Normal NEG [facility] Comment on above: Performed By: #### Jerel CARR, 3050-0 #### [facility] ([id number]) [address], [address] [place] [address] BLOOD/HGB MODERATE Abnormal NEG [facility] Comment on above: Performed By: #### Jerel CARR, 0 #### [facility] ([id number]) [address], [address] [place] [address] Color (U) YELLOW Normal YELLOW [facility] Comment on above: Performed By: #### Jerel CARR, 0 #### [facility] ([id number]) [address], [address] [place] [address] Glucose Ql (U) Negative Normal NEG [facility] Comment on above: Performed By: #### Jerel CARR, 0 #### [facility] ([id number]) [address], [address] [place] [address] Hyaline casts LM Ql (Urine sed) 3 /lpf High 0-2 [facility] Comment on above: Performed By: #### Jerel CARR, 0 #### [facility] ([id number]) [address], [address] [place] [address] Ketones Ql (U) Negative Normal NEG [facility] Comment on above: Performed By: #### Jerel CARR, 0 #### [facility] ([id number]) [address], [address] [place] [address] Leukocyte esterase Test strip Ql (U) MODERATE Abnormal NEG [facility] [facility] Comment on above: Performed By: #### Jerel CARR, 3050-0 #### [facility] ([id number]) [address], [address] [place] [address] MUCOUS PRESENT Abnormal NONE [facility] Comment on above: Performed By: #### Jerel CARR, #### [facility] ([id number]) [address], [address] [place] [address] Nitrite Ql (U) Negative Normal NEG [facility] Comment on above: Performed By: #### Jerel CARR, #### [facility] ([id number]) [address], [address] [place] [address] pH (U) 6.0 [pH] Normal 5.0-8.5 [facility] Comment on above: Performed By: #### Jerel CARR, #### [facility] ([id number]) [address], [address] [place] [address] Protein Ql (U) Trace Abnormal NEG [facility] Comment on above: Performed By: #### Jerel CARR, #### [facility] ([id number]) [address], [address] [place] [address] R.B.CELLS 46 /hpf High 0-5 [facility] Comment on above: Performed By: #### Jerel CARR, 0 #### [facility] ([id number]) [address], [address] [place] [address] Specific gravity (U) [Rel density] 1.020 Normal 1.003-1.035 [facility] Comment on above: Performed By: #### Jerel CARR, #### [facility] ([id number]) [address], [address] [place] [address] SQUAMOUS EPITHELIUM 3 /hpf Normal 0-5 [facility] Comment on above: Performed By: #### Jerel CARR, 0 #### [facility] ([id number]) [address], [address] [place] [address] TURBIDITY CLEAR Normal CLEAR [facility] Comment on above: Performed By: #### Jerel CARR, 0 #### [facility] ([id number]) [address], [address] [place] [address] Urobilinogen (U) [Mass/Vol] mg/dL Normal <1.1 [facility] Comment on above: Performed By: #### Jerel CARR, 0 #### [facility] ([id number]) [address], [address] [place] [address] W.B.CELLS 33 /hpf High 0-5 [facility] Comment on above: Performed By: #### Jerel CARR, 0 #### [facility] ([id number]) [address] [place] [address] URINE CULTUREon 03-23-2024 Bacteria identified Cx Nom (U) SPECIMEN NOTES URINE RECEIVED WITHOUT PRESERVATIVE CULTURE RESULTS 10,000 to 50,000 ORGANISMS/mL PROTEUS MIRABILIS <10,000 ORGANISMS/mL NORMAL URO GENITAL JANNETH URINE RECEIVED WITHOUT PRESERVATIVE-DELAYS IN TRANSPORT MAY AFFECT RESULTS.INTERPRET WITH CAUTION AND CLINICAL CORRELATION IS RECOMMENDED. [ S = SUSCEPTIBLE R = RESISTANT I = INTERMEDIATE S-DO = Susceptible-dose dependent NS = Non-suscceptible NO = No Interpretation ] Organism: PROTEUS MIRABILIS Antibiotic Interpretation ELMO Status AMPICILLIN R >=32 F AMP/SULBACTAM S 8/4 F CEFAZOLIN S 8 F CEFTRIAXONE S <=1 F CIPROFLOXACIN R >=4 F GENTAMICIN S <=1 F LEVOFLOXACIN I 4 F NITROFURANTOIN R >=512 F PIPERACIL/TAZOBACTAM S <=4 F TOBRAMYCIN S <=1 F TRIMETH/SULFAMETHOXAZO LE R >=16/304 F Resistant [facility] Comment on above: Performed By: #### Jerel CARR, 3050-0 #### [facility] ([id number]) [address], [address] [place] [address] ALBUMINon 02-03-2024 Albumin [Mass/Vol] 3.7 g/dL Normal 3.2-5.3 [facility] Comment on above: Performed By: #### C BC, C34, 1751-7, BMP, 95798-8, 2777-1, 2731-8, 82947-1 #### [facility] ([id number]) [address], [address] [place] [address] BASIC METABOLIC PANLon 02-02 Anion gap [Moles/Vol] 11 mmol/L Normal 5-15 [facility] Comment on above: Performed By: #### C BC, C34, 1751-7, BMP, 87140-3, 2777-1, 2731-8, 10106-4 #### [facility] ([id number]) [address], [address] [place] [address] Calcium [Mass/Vol] 8.8 mg/dL Normal 8.5-10.5 [facility] Comment on above: Performed By: #### C BC, C34, 1751-7, BMP, 13770-1, 2777-1, 2731-8, 79092-3 #### [facility] ([id number]) [address], [address] [place] [address] Chloride [Moles/Vol] 100 mmol/L Normal 98-109 [facility] Comment on above: Performed By: #### C BC, C34, 1751-7, BMP, 27005-5, 2777-1, 2731-8, 72037-6 #### [facility] ([id number]) [address], [address] [place] [address] CO2 [Moles/Vol] 33 mmol/L High 22-32 [facility] Comment on above: Performed By: #### Triny BC, C34, 1751-7, BMP, 62853-7, 2777-1, 2731-8, 25347-7 #### [facility] ([id number]) [address], [address] [place] [address] Creatinine [Mass/Vol] 1.71 mg/dL High 0.40-1.00 [facility] Comment on above: Result Comment: METH OD TRACEABLE TO IDMS STANDARD Performed By: #### C BC, C34, 1751-7, BMP, 24143-7, 2777-1, 2731-8, 07722-7 #### [facility] ([id number]) [address], [address] [place] [address] GFR/1.73 sq M.predicted among non-blacks MDRD (S/P/Bld) [Vol rate/Area] 31 mL/min/{1.73_m2} Low >59 [facility] Comment on above: Result Comment: Reported eGFR is based on the CKD-EPI 2020 equation that does not use a race coefficient. Performed By: #### C BC, C34, 1751-7, BMP, 56496-6, 2777-1, 2731-8, 45557-3 #### [facility] ([id number]) [address], [address] [place] [address] Glucose [Mass/Vol] 139 mg/dL High 65-99 [facility] Comment on above: Performed By: #### C BC, C34, 1751-7, BMP, 11405-9, 2777-1, 2731-8, 92419-3 #### [facility] ([id number]) [address], [address] [place] [address] Potassium [Moles/Vol] 4.1 mmol/L Normal 3.5-5.0 [facility] Comment on above: Performed By: #### C BC, C34, 1751-7, BMP, 67313-4, 2777-1, 2731-8, 41702-4 #### [facility] ([id number]) [address], [address] [place] [address] Sodium [Moles/Vol] 144 mmol/L Normal 134-146 [facility] Comment on above: Performed By: #### C BC, C34, 1751-7, BMP, 26398-3, 2777-1, 2731-8, 37565-0 #### [facility] ([id number]) [address], [facility] [address] [place] [address] Urea nitrogen [Mass/Vol] 29 mg/dL High 5-27 [facility] Comment on above: Performed By: #### C BC, C34, 1751-7, BMP, 34525-1, 2777-1, 2731-8, 58309-1 #### [facility] ([id number]) [address], [facility] [address] [place] [address] COMPLEMENT PROFILEon 024 COMPLEMENT C3 148 mg/dL Normal 86-184 [facility] Comment on above: Performed By: #### C BC, C34, 1751-7, BMP, 63244-2, 2777-1, 2731-8, 47894-3 #### [facility] ([id number]) [address], [facility] [address] [place] [address] COMPLEMENT C4 45 mg/dL Normal 16-47 [facility] Comment on above: Performed By: #### C BC, C34, 1751-7, BMP, 44867-1, 2777-1, 2731-8, 88883-6 #### [facility] ([id number]) [address], [address] [place] [address] COMPLETE BLOOD COUNTon 02-02 Erythrocyte distribution width (RBC) [Ratio] 18.1 % High 11.5-15.0 [facility] Comment on above: Performed By: #### C BC, C34, 1751-7, BMP, 07165-3, 2777-1, 2731-8, 41160-7 #### [facility] ([id number]) [address], [address] [place] [address] Hematocrit (Bld) [Volume fraction] 39.0 % Normal 35-47 [facility] Comment on above: Performed By: #### C BC, C34, 1751-7, BMP, 89374-5, 2777-1, 2731-8, 55548-0 #### [facility] ([id number]) [address], [address] [place] [address] Hemoglobin (Bld) [Mass/Vol] 12.1 g/dL Normal 11.7-15.5 [facility] Comment on above: Performed By: #### Triny ALLAN, C34, 1751-7, BMP, 95977-4, 2777-1, 2731-8, 21620-0 #### [facility] ([id number]) [address] [place] [address] MCH (RBC) [Entitic mass] 24.4 pg Low 27-34 [facility] Comment on above: Performed By: #### Triny ALLAN, C34, 1751-7, BMP, 28834-3, 2777-1, 2731-8, 98994-7 #### [facility] ([id number]) [address], [address] [place] [address] MCHC (RBC) [Mass/Vol] 31.1 g/dL Low 32-36 [facility] Comment on above: Performed By: #### Triny BC, C34, 1751-7, BMP, 43534-0, 2777-1, 2731-8, 95515-2 #### [facility] ([id number]) [address] [place] [address] MCV (RBC) [Entitic vol] 79 fL Low 80-100 [facility] Comment on above: Performed By: #### Triny BC, C34, 1751-7, BMP, 07330-5, 2777-1, 2731-8, 33806-8 #### [facility] ([id number]) [address], [address] [place] [address] Platelet mean volume (Bld) [Entitic vol] 9.5 fL Normal 7-12 [facility] Comment on above: Performed By: #### Triny ALLAN, C34, 1751-7, BMP, 53059-7, 2777-1, 2731-8, 99707-1 #### [facility] ([id number]) [address], [address] [place] [address] Platelets (Bld) [#/Vol] 158 10*3/uL Normal 150-450 [facility] Comment on above: Performed By: #### Triny ALLAN, C34, 175-7, BMP, 41582-7, 2777-1, 2731-8, 45752-3 #### [facility] ([id number]) [address] [place] [address] RBC COUNT 4.95 X10E12/L Normal 3.80-5.20 [facility] Comment on above: Performed By: #### Triny ALLAN, C34, 175-7, BMP, 07578-9, 2777-1, 2731-8, 06976-6 #### [facility] ([id number]) [address], [address] [place] [address] WBC (Bld) [#/Vol] 5.2 10*3/uL Normal 4.0-11.0 [facility] Comment on above: Performed By: #### Triny ALLAN, C34, 1751-7, BMP, 92526-9, 2777-1, 2731-8, 63839-2 #### [facility] ([id number]) [address] [address] [place] [address] MAGNESIUMon 02-03-2024 Magnesium [Mass/Vol] 2.4 mg/dL Normal 1.8-2.6 [facility] Comment on above: Performed By: #### Triny BC, C34, 1751-7, BMP, 42031-5, 2777-1, 2731-8, 61916-0 #### [facility] ([id number]) [address] [place] [address] MICROALBUMIN - ALBUMIN:CREAT ININE URINE RATIOon 02-03-2024 ALB/CREAT RATIO 27.2 mg/g creat Normal 0.0-30.0 [facility] Comment on above: Performed By: #### Jerel CARR, 0 #### [facility] ([id number]) [address], [address] [place] [address] Albumin DL <= 20 mg/L (U) [Mass/Vol] 0.9 mg/dL Normal 0.0-1.9 [facility] Comment on above: Performed By: #### Jerel CARR, 0 #### [facility] ([id number]) [address], [address] [place] [address] URINE CREAT 33.07 mg/dL Normal [facility] Comment on above: Performed By: #### Jerel CARR, 0 #### [facility] ([id number]) [address] [place] [address] PHOSPHORUSon 02-03-2024 Phosphate [Mass/Vol] 4.3 mg/dL Normal 2.4-4.9 [facility] Comment on above: Performed By: #### C BC, C34, 175-7, BMP, 06481-4, 2777-1, 2731-8, 34642-7 #### [facility] ([id number]) [address] [address] [place] [address] Parathyrin.intact [Mass/Vol] on 02-03-2024 PTH INTACT 211 pg/mL High 12-88 [facility] Comment on above: Performed By: #### C BC, C34, 1751-7, BMP, 79865-3, 2777-1, 2731-8, 69024-9 #### [facility] ([id number]) [address], [address] [place] [address] URINALYSISon 02-03-2024 Bilirubin Ql (U) Negative Normal NEG [facility] Comment on above: Performed By: #### Jerel CARR, 3050-0 #### [facility] ([id number]) [address], [address] [place] [address] BLOOD/HGB Negative Normal NEG [facility] Comment on above: Performed By: #### Jerel CARR, 3050-0 #### [facility] ([id number]) [address], [address] [place] [address] Color (U) YELLOW Normal YELLOW [facility] Comment on above: Performed By: #### Jerel CARR, 3050-0 #### [facility] ([id number]) [address] [place] [address] Glucose Ql (U) Negative Normal NEG [facility] Comment on above: Performed By: #### Jerel CARR, 3050-0 #### [facility] ([id number]) [address], [address] [place] [address] Ketones Ql (U) Negative Normal NEG [facility] Comment on above: Performed By: #### Jerel CARR, 3050-0 #### [facility] ([id number]) [address], [address] [place] [address] Leukocyte esterase Test strip Ql (U) Trace Abnormal NEG [facility] Comment on above: Performed By: #### Jerel CARR, 3050-0 #### [facility] ([id number]) [address], [address] [place] [address] MUCOUS PRESENT Abnormal NONE [facility] Comment on above: Performed By: #### Jeerl CARR, 3050-0 #### [facility] ([id number]) [address], [address] [place] [address] Nitrite Ql (U) Negative Normal NEG [facility] Comment on above: Performed By: #### Jerel CARR, #### [facility] ([id number]) [address], [address] [place] [address] pH (U) 6.5 [pH] Normal 5.0-8.5 [facility] Comment on above: Performed By: #### Jerel CARR, #### [facility] ([id number]) [address] [place] [address] Protein Ql (U) Negative Normal NEG [facility] Comment on above: Performed By: #### Jerel CARR, #### [facility] ([id number]) [address] [place] [address] R.B.CELLS 1 /hpf Normal 0-5 [facility] Comment on above: Performed By: #### Jerel CARR, 0 #### [facility] ([id number]) [address] [place] [address] Specific gravity (U) [Rel density] 1.009 Normal 1.003-1.035 [facility] Comment on above: Performed By: #### Jerel CARR, 0 #### [facility] ([id number]) [address] [place] [address] SQUAMOUS EPITHELIUM 2 /hpf Normal 0-5 [facility] Comment on above: Performed By: #### Jerel CARR, 0 #### [facility] ([id number]) [address], [address] [place] [address] TURBIDITY CLEAR Normal CLEAR [facility] Comment on above: Performed By: #### Jerel CARR, 0 #### [facility] ([id number]) [address], [address] [place] [address] Urobilinogen (U) [Mass/Vol] mg/dL Normal <1.1 [facility] Comment on above: Performed By: #### Jerel CARR, 3050 #### [facility] ([id number]) [address], [address] [place] [address] W.B.CELLS 4 /hpf Normal 0-5 [facility] Comment on above: Performed By: #### Jerel CARR, #### [facility] ([id number]) [address] [address] [place] [address] Vitamin D+Metabolites [Mass/ Vol]on 02-03-2024 VITAMIN D 25 HYD TOT 37.9 ng/mL Normal 30-100 [facility] Comment on above: Result Comment: Vitamin D status 25 [place] Vitamin D Deficiency <20 ng/mL Insufficiency 20-29 ng/mL Sufficiency 30-100 ng/mL Toxicity >100 ng/mL NOTE: A pediatric reference range has not been established by the linen room attendant of this kit. The [employer] recommends a Vitamin D level of = or >20ng/mL in infants and children. Performed By: #### C BC, C34, 1751-7, BMP, 12194-0, 2777-1, 2731-8, 61555-1 #### [facility] ([id number]) [address] [place] [address] FREE T3on 12-02-2023 Free T3 [Mass/Vol] 2.55 pg/mL Normal 2.50-3.90 [facility] Comment on above: Performed By: #### Jerel CARR, 0 #### [facility] ([id number]) [address], [address] [place] [address] THYROID PROFILEon 12-02-2023 Free T4 [Mass/Vol] 0.96 ng/dL Normal 0.61-1.60 [facility] Comment on above: Performed By: #### T BRUNO, 3051-0 #### [facility] ([id number]) [address] [place] [address] TSH 0.97 uIU/mL Normal 0.49-4.67 [facility] Comment on above: Performed By: #### T BRUNO, 3051-0 #### [facility] ([id number]) [address] [place] [address] GLYCOHEMOGLOBIN A1Con 2021 ADA RECOMMENDATION SEE BELOW Normal [facility] Comment on above: Result Comment: ADA RECOMMENDED LIMIT 4.0 - 6.0 ADA THERAPEUTIC TARGET < 7.0 ACTION SUGGESTED > 7.0 Performed By: #### A 1C #### [facility] [address] [address] [address] Landen Valentino Glucose [Mass/Vol] 137 mg/dL Normal [facility] Comment on above: Performed By: #### A 1C #### [facility] [address] [address] [address] Landen Valentino HbA1c (Bld) [Mass fraction] 6.4 % Critically high 4.5-6.2 [facility] Comment on above: Performed By: #### A 1C #### [facility] [address] [address] [address] Landen Valentino Physician Referralon 021 Physician Referral [phone] [id number] Normal [facility] Vital Signs Date Time Vital Sign Value Performing Clinician Alcon cohen 10-10-2024 10:20-0500 Body height 160 cm Dick Villegas DPM Work Phone: [facility] 10-10-2024 10:20-0500 Body mass index (BMI) [Ratio] 55.98 kg/m2 Dick Villegas DPM Work Phone: [facility] 10-10-2024 10:20-0500 Body weight 143.34 kg Dick Villegas DPM Work Phone: [facility] 09-19-2024 10:36-0500 Body height 160 cm Ovidio Bills MD Work Phone: [facility] 09-19-2024 10:36-0500 Body mass index (BMI) [Ratio] 55.98 kg/m2 Ovidio Bills MD Work Phone: [facility] 09-19-2024 10:36-0500 Body temperature 97.3 [degF] Ovidio Bills MD Work Phone: [facility] 09-19-2024 10:36-0500 Body weight 143.34 kg Ovidio Bills MD Work Phone: [facility] 09-19-2024 10:36-0500 Diastolic blood pressure 60 mm[Hg] Ovidio Bills MD Work Phone: [facility] 09-19-2024 10:36-0500 Heart rate 93 /min Ovidio Bills MD Work Phone: [facility] 09-19-2024 10:36-0500 Respiratory rate 22 /min Ovidio Bills MD Work Phone: [facility] 09-19-2024 10:36-0500 SaO2% (BldA) [Mass fraction] 88 % Ovidio Bills MD Work Phone: [facility] 09-19-2024 10:36-0500 Systolic blood pressure 142 mm[Hg] Ovidio Bills MD Work Phone: [facility] 08-17-2024 09:56-0500 Body height 160 cm Choco Vasquez [employer] Work Phone: [facility] 08-17-2024 09:56-0500 Diastolic blood pressure 72 mm[Hg] Choco Vasuqez [employer] Work Phone: [facility] 08-17-2024 09:56-0500 Heart rate 75 /min Choco Vasquez [employer] Work Phone: [facility] 08-17-2024 09:56-0500 Systolic blood pressure 137 mm[Hg] Choco Vasquez [employer] Work Phone: [facility] 06-09-2024 15:18-0400 Body height 160 cm Ovidio Bills MD Work Phone: [facility] 06-09-2024 15:18-0400 Body mass index (BMI) [Ratio] 57.39 kg/m2 Ovidio Bills MD Work Phone: [facility] 06-09-2024 15:18-0400 Body temperature 97.11 [degF] Ovidio Bills MD Work Phone: [facility] 06-09-2024 15:18-0400 Body weight 146.97 kg Ovidio Bills MD Work Phone: [facility] 06-09-2024 15:18-0400 Diastolic blood pressure 60 mm[Hg] Ovidio Bills MD Work Phone: [facility] 06-09-2024 15:18-0400 Heart rate 96 /min Ovidio Bills MD Work Phone: [facility] 06-09-2024 15:18-0400 Respiratory rate 20 /min Ovidio Bills MD Work Phone: [facility] 06-09-2024 15:18-0400 SaO2% (BldA) [Mass fraction] 93 % Ovidio Bills MD Work Phone: [facility] 06-09-2024 15:18-0400 Systolic blood pressure 134 mm[Hg] Ovidio Bills MD Work Phone: [facility] 05-30-2024 15:13-0400 Diastolic blood pressure 76 mm[Hg] Parth Agus DO Work Phone: [facility] 05-30-2024 15:13-0400 Heart rate 90 /min Parth Agus DO Work Phone: [facility] 05-30-2024 15:13-0400 SaO2% (BldA) [Mass fraction] 90 % Parth Agus DO Work Phone: [facility] 05-30-2024 15:13-0400 Systolic blood pressure 154 mm[Hg] Parth Agus DO Work Phone: [facility] 05-10-2024 12:57-0400 Body height 160 cm Dick Villegas DPM Work Phone: [facility] 05-10-2024 12:57-0400 Body mass index (BMI) [Ratio] 60.05 kg/m2 Dick Villegas DPM Work Phone: [facility] 05-10-2024 12:57-0400 Body weight 153.77 kg Dick Villegas DPM Work Phone: [facility] 04-29-2024 10:59-0400 Body height 160 cm Ovidio Bills MD Work Phone: [facility] 04-29-2024 10:59-0400 Body mass index (BMI) [Ratio] 60.05 kg/m2 Ovidio Bills MD Work Phone: [facility] 04-29-2024 10:59-0400 Body temperature 97.5 [degF] Ovidio Bills MD Work Phone: [facility] 04-29-2024 10:59-0400 Body weight 153.77 kg Ovidio Bills MD Work Phone: [facility] 04-29-2024 10:59-0400 Diastolic blood pressure 68 mm[Hg] Ovidio Bills MD Work Phone: [facility] 04-29-2024 10:59-0400 Heart rate 90 /min Ovidio Bills MD Work Phone: [facility] 04-29-2024 10:59-0400 Respiratory rate 24 /min Ovidio Bills MD Work Phone: [facility] 04-29-2024 10:59-0400 SaO2% (BldA) [Mass fraction] 90 % Ovidio Bills MD Work Phone: [facility] 04-29-2024 10:59-0400 Systolic blood pressure 164 mm[Hg] Ovidio Bills MD Work Phone: [facility] Encounters Encounter Date Encounter Type Care Provider Facility Start: 10-10-2024 End: 10-10-2024 Bamboo flowsheet Dick Villegas DPM Work Phone: [facility] Start: 10-10-2024 End: 10-10-2024 Bamboo flowsheet Dick Villegas DPM Work Phone: [facility] Start: 10-10-2024 End: 10-10-2024 Patient encounter procedure Dick Villegas DPM Work Phone: [facility] Comment on above: Dermatophytosis of n ail (Primary Dx); Dystrophic nail; Diabetic polyneuropathy associated with type 2 diabetes mellitus (CMS/HCC); Type II diabetes mellitus with peripheral circulatory disorder ([facility]); Chronic venous insufficiency Start: 10-10-2024 End: 10-10-2024 ambulatory DICK VILLEGAS Not Available Start: 09-19-2024 End: 09-19-2024 Bamboo flowsheet Ovidio Bills MD Work Phone: [facility] Start: 09-19-2024 End: 09-19-2024 Bamboo flowsheet Ovidio Bills MD Work Phone: [facility] Start: 09-19-2024 End: 09-19-2024 Office outpatient visit 25 minutes Ovidio Bills MD Work Phone: [facility] Comment on above: Type 2 diabetes kaylie itus with microalbuminuria, without long- term current use of insulin (CMS/HCC) (Primary Dx); Spondylosis of 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; Major depressive disorder, recurrent episode, mild (HCC) (CMS/HCC); Generalized anxiety disorder (CMS/HCC); Primary insomnia; Type 2 diabetes mellitus with polyneuropathy (CMS/HCC); Lymphedema; Acute non-recurrent pansinusitis; Class 3 severe obesity due to excess calories with serious comorbidity and body mass index (BMI) of 50.0 to 59.9 in adult ([facility]); Stage 3b chronic kidney disease (CKD) ([facility]); Type 2 diabetes mellitus with diabetic chronic kidney disease ([facility]) Start: 09-19-2024 End: 09-19-2024 ambulatory OVIDIO BILLS Not Available Start: 09-05-2024 End: 09-05-2024 ambulatory OVIDIO BILLS [facility] Start: 08-25-2024 End: 08-25-2024 Refill Ovidio Bills MD Work Phone: [facility] Comment on above: Shortness of breath; Fibromyalgia Start: 08-23-2024 End: 08-23-2024 Refill Ovidio Bills MD Work Phone: [facility] Comment on above: Shortness of breath (Primary Dx); Fibromyalgia Start: 08-17-2024 End: 08-17-2024 Bamboo flowsheet Choco Vasquez [employer] Work Phone: [facility] Start: 08-17-2024 End: 08-17-2024 Bamboo flowsheet Choco Vasquez [employer] Work Phone: [facility] Start: 08-17-2024 End: 08-17-2024 Office outpatient visit 25 minutes Choco Vasquez PIPE BOWLS PAINT TRIMMER Work Phone: [facility] Comment on above: ETIENNE (obstructive sle ep apnea) (Primary Dx); Hypoxia; Hypersomnia; Generalized anxiety disorder ([facility]); Major depressive disorder, recurrent episode, mild (HCC) ([facility]) Start: 08-17-2024 End: 08-17-2024 ambulatory CHOCO VASQUEZ Not Available Start: 07-26-2024 End: 07-26-2024 Refill Ovidio Bills MD Work Phone: [facility] Comment on above: Fibromyalgia Start: 07-13-2024 End: 07-13-2024 Bamboo flowsheet Fabian Dos Santos PIPE [employer]OWLS PAINT TRIMMER Work Phone: [facility] Start: 07-13-2024 End: 07-13-2024 Bamboo flowsheet Fabian Dos Santos NP Work Phone: [facility] Start: 07-13-2024 End: 07-13-2024 Office outpatient new 30 minutes Fabian Dos Santos NP Work Phone: [facility] Comment on above: Primary osteoarthrit is of left knee (Primary Dx); Left knee pain, unspecified chronicity Start: 07-13-2024 End: 07-13-2024 ambulatory FABIAN DOS SANTOS Not Available Start: 07-04-2024 End: 07-04-2024 Telephone encounter Emily Nunez MA [facility] [address] Start: 06-28-2024 End: 06-29-2024 Refill Ovidio Bills MD Work Phone: [facility] Comment on above: Post-operative hypot hyroidism (CMS/HCC) Start: 06-09-2024 End: 06-09-2024 Postop follow up visit related to original px Ovidio Bills MD Work Phone: [facility] Comment on above: Medicare annual well ness visit, subsequent (Primary Dx); Spondylosis of 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; Type 2 diabetes mellitus with microalbuminuria, without long-term current use of insulin ([facility]); Primary insomnia Start: 06-09-2024 End: 06-09-2024 ambulatory OVIDIO BILLS Not Available Start: 06-09-2024 End: 06-09-2024 Bamboo flowsheet Ovidio Bills MD Work Phone: [facility] Start: 06-09-2024 End: 06-09-2024 Bamboo flowsheet Ovidio Bills MD Work Phone: [facility] Start: 06-09-2024 End: 06-09-2024 Patient encounter procedure Ovidio Bills MD Work Phone: [facility] Work Phone: Start: 06-06-2024 End: 06-06-2024 Refill Ovidio Bills MD Work Phone: [facility] Comment on above: Spondylosis of lumbo sacral spine without myelopathy Start: 06-03-2024 End: 06-03-2024 Bamboo flowsheet Ovidio Bills MD Work Phone: [facility] Start: 06-03-2024 End: 06-03-2024 Bamboo flowsheet Ovidio Bills MD Work Phone: [facility] Start: 05-30-2024 End: 05-30-2024 Office outpatient new 45 minutes Parth Agus DO Work Phone: [facility] [employer] [address] Comment on above: Primary insomnia (Pr imary Dx); ETIENNE (obstructive sleep apnea); Hypoxia; Sleep disturbance; Hypersomnia; Snoring Start: 05-30-2024 End: 05-30-2024 ambulatory PARTHKELVIN GOLDSMITH Not Available Start: 05-30-2024 End: 05-30-2024 Bamboo flowsheet Parth Agus DO Work Phone: [employer] [address] Start: 05-30-2024 End: 05-30-2024 Bamboo flowsheet Parth Agus DO [facility] [place] [address] Start: 05-10-2024 End: 05-10-2024 Bamboo flowsheet Dick Villegas DPM Work Phone: [facility] Start: 05-10-2024 End: 05-10-2024 Bamboo flowsheet Dick Villegas DPM Work Phone: [facility] Start: 05-10-2024 End: 05-10-2024 Patient encounter procedure Dick Villegas DPM Work Phone: [facility] Comment on above: Dermatophytosis of n ail (Primary Dx); Dystrophic nail; Diabetic polyneuropathy associated with type 2 diabetes mellitus ([facility]/HCC); Chronic venous insufficiency Start: 05-10-2024 End: 05-10-2024 ambulatory DICK VILLEGAS Not Available Start: 04-29-2024 End: 04-29-2024 Bamboo flowsheet Ovidio Bills MD Work Phone: [facility] Start: 04-29-2024 End: 04-29-2024 Bamboo flowsheet Ovidio Bills MD Work Phone: [facility] Start: 04-29-2024 End: 04-29-2024 Office outpatient visit 25 minutes Ovidio Bills MD Work Phone: [facility] Comment on above: Type 2 diabetes kaylie itus with microalbuminuria, without long- term current use of insulin (CMS/HCC) (Primary Dx); Lymphedema; Type 2 diabetes mellitus with polyneuropathy (CMS/HCC); Spondylosis of 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; Major depressive disorder, recurrent episode, mild (HCC) (CMS/HCC); Generalized anxiety disorder (CMS/HCC); Primary insomnia; Type 2 diabetes mellitus with diabetic chronic kidney disease (HCC) (CMS/HCC); Chronic kidney disease, stage 3a (HCC) (CMS/HCC); Morbid (severe) obesity due to excess calories (CMS/HCC); Body mass index (BMI) 50.0-59.9, adult (CMS/HCC); Stage 3b chronic kidney disease (CKD) (CMS/HCC); Obesity, morbid, BMI 50 or higher (CMS/HCC) Start: 04-29-2024 End: 04-29-2024 ambulatory OVIDIO BILLS Not Available Start: 04-07-2024 End: 04-07-2024 Emergency department patient visit OVIDIO BILLS [facility] Start: 03-23-2024 End: 03-23-2024 ambulatory OVIDIO BILLS [facility] Start: 02-29-2024 End: 02-29-2024 ambulatory OVIDIO BILLS Not Available Start: 02-03-2024 End: 02-03-2024 ambulatory JOHN HARRIS [facility] Start: 01-06-2024 End: 01-06-2024 ambulatory DICK VILLEGAS Not Available Start: 12-04-2023 End: 12-04-2023 ambulatory OVIDIO BILLS Not Available Start: 12-02-2023 End: 12-02-2023 ambulatory OVIDIO BILLS [facility] Start: 11-04-2023 End: 11-04-2023 ambulatory DICK VILLEGAS Not Available Start: 10-14-2023 End: 10-14-2023 ambulatory MARK Rocha PRAMOD [facility] Start: 09-30-2023 End: 09-30-2023 ambulatory MARK BENAVIDEZ [facility] Start: 09-25-2023 End: 10-08-2023 ambulatory MARK BENAVIDEZ [facility] Start: 09-11-2023 End: 09-11-2023 ambulatory MARK BENAVIDEZ [facility] Start: 07-14-2022 End: 07-15-[address] OVIDIO BILLS Facility:[facility] Start: 12-03-[address] SERA GOLDEN Facility:[facility] Procedures Date Procedure Procedure Detail Performing Clinician Start: 07-13-2024 Arthrocentesis aspir &/inj major jt/bursa w/o us Fabian T Rosemarie SANCHEZ Work Phone: Plan of Treatment Date Care Activity Detail Author Start: 12-13-2025 Glaucoma screening Diabetes: R etinopathy Screening [facility] Start: 09-05-2025 Urine screening for protein Diabetes: Urine Protein Screening [facility] Start: 06-09-2025 Medicare Annual Wellness (AWV) Medicare Annual Wellness (AWV) [facility] Start: 03-06-2025 Hemoglobin A1c measurement Diabetes: Hemoglobin A1C [facility] Start: 02-02-2025 Urine screening for protein Diabetes: Urine Protein Screening [facility] Start: 02-01-2025 End: 02-01-2025 Patient encounter procedure 02/01/2025 10:30 AM EDT Procedure Visit [facility] [address] [place] [id number] Dick Villegas DPM [address] [place] [address] [facility] Start: 12-12-2024 End: 12-12-2024 Patient encounter procedure 12/12/2024 10:15 AM EDT [facility] [address] [place] [address] Ovidio Bills MD [address] [place] [phone] [facility] Start: 12-04-2024 Hemoglobin A1c measurement Diabetes: Hemoglobin A1C [facility] Start: 11-16-2024 End: 11-16-2024 Patient encounter procedure [facility] [place] [facility] Start: 10-10-2024 End: 10-10-2024 Patient encounter procedure 10/10/2024 10:45 AM EST Procedure Visit [facility] [address] [place] [address] Dick Villegas, DPShahida [address] [place] [address] Arrived [facility] Comment on above: Arrived Start: 09-21-2024 End: 09-21-2024 Patient encounter procedure 09/21/2024 3:30 PM EST Procedure Visit [facility] [address] [place] [address] Dick Villegas DPM [address] [place] [address] [facility] Start: 09-19-2024 End: 09-19-2024 Patient encounter procedure 09/19/2024 10:30 AM EST Office Visit [facility] [address] [place] [address] Ovidio Bills MD [address] [place] [phone] Arrived [facility] Comment on above: Arrived Start: 09-13-2024 End: 01-07-2025 Patient encounter procedure 09/13/2024 3:00 PM EST Office Visit [facility] [address] [place] [address] Ovidio Bills MD [address] [place] [address] [facility] Start: 08-24-2024 End: 08-24-2024 Patient encounter procedure 08/24/2024 3:30 PM EST Procedure Visit [facility] [address] [place] [phone] Dick Villegas, DP [address] [place], [place] [id number] [facility] Start: 08-17-2024 End: 08-17-2024 Patient encounter procedure 08/17/2024 10:00 AM EST Office Visit [facility] [address] [place] [address] Choco Vasquez NP [address] [place] [address] Arrived [facility] Comment on above: Arrived Start: 08-15-2024 End: 08-15-2024 Patient encounter procedure [facility] Start: 07-27-2024 End: 07-27-2024 Patient encounter procedure 07/27/2024 9:20 AM EST Office Visit [facility] [place] [address] [place] [address] Choco Vasquez NP [address] [place], [place] [facility] [place] [address] Start: 07-26-2024 End: 07-26-2024 Patient encounter procedure 07/26/2024 4:00 PM EST Office Visit [facility] [place] [address] [place] [address] Choco Vasquez NP [address] [place] [facility] [place] [facility] Start: 07-13-2024 End: 07-13-2024 Patient encounter procedure 07/13/2024 9:15 AM EST Office Visit [facility] [address] [place] [address] Fabian Dos Santos, PIPE BOWLS PAINT TRIMMER [address] [place], [place] [id number] Left knee pain, unspecified chronicity [facility] Comment on above: Left knee pain, unsp ecified chronicity Start: 07-06-2024 End: 07-06-2024 Patient encounter procedure 07/06/2024 9:15 AM EDT Office Visit [facility] [address] [place] [address] Fabian Dos Santos, LAURA [address] [place], [place] [phone] [facility] Start: 06-09-2024 End: 06-09-2024 Patient encounter procedure [facility] Comment on above: Arrived Start: 06-03-2024 End: 06-03-2024 Patient encounter procedure [facility] Comment on above: Arrived Start: 05-30-2024 End: 05-30-2024 [facility] encounter [facility] Comment on above: Arrived Start: 05-10-2024 End: 05-10-2024 Patient encounter procedure [facility] Comment on above: Arrived Start: 05-08-2024 Influenza vaccination Influenza Vacc ine (#1) [facility] Start: 04-29-2024 End: 04-29-2024 Patient encounter procedure 04/29/2024 10:45 AM EDT Office Visit [facility] [address] [place] [phone] Ovidio Bills MD [address] [place] [id number] Arrived [facility] Comment on above: Arrived Start: 09-04-2023 Hemoglobin A1c measurement Diabetes: Hemoglobin A1C [facility] Start: 06-21-2013 Pneumococcal Vaccine : 65+ Years (2 of 2 - PCV) Pneumococcal Vaccine: 65+ Years (2 of 2 - PCV) [facility] Start: 02-24-1958 Glaucoma screening Diabetes: R etinopathy Screening [facility] Start: 1950 Medicare Annual Wellness (AWV) Medicare Annual Wellness (AWV) [facility] Immunizations Immunization Date Immunization Notes Care Provider Fa cility 06-14-2021 influenza virus vacc ine, unspecified formulation Ovidio Bills MD Work Phone: [facility] Payers Date Payer Category Payer Medicare HU[employer]NA MEDICARE ADVANTAGE HU[employer]NA MEDICARE [id number] 2020-Present [address] [place] [id number] 2020 Medicare (Managed Care) HUMANA M EDICARE ADVANTAGE [id number] 2017 Medicaid [id number]. [id number] 1959 Medicaid [id number] 1959 Medicare [id number] 1948 Unknown [id number] 2.16840.1.756500.3.579.2. 593 1948 Unknown [id number] 2.16840.1.965861.3.579.2. 593 1948 Unknown [id number] 2.16.840.1.654491.3.579.2. 1286 1948 Unknown [id number] 2.16.840.1.718702.3.579.2. 1286 1948 Unknown [id number] 2.16.840.1.677409.3.579.2. 1286 1948 Unknown [id number] 2.16.840.1.433419.3.579.2. 128 1948 Unknown [id number] 2.16.840.1.206808.3.579.2. 128 1948 Unknown [id number] 2.840.1.331134.3.579.2. 128 1948 Unknown [id number] 2.840.1.400376.3.579.2. 128 1948 Unknown [id number] 2.840.1.649751.3.579.2. 128 1948 Unknown [id number] 2.840.1.127251.3.579.2. 128 1948 Unknown [id number] 2..840.1.640957.3.579.2. 9 1948 Unknown [id number] 2.840.1.169657.3.579.2. 1259 1948 Unknown [id number] 2.16.840.1.394599.3.579.2. 1259 1948 Unknown [id number] 2.16.840.1.401767.3.579.2. 125 1948 Unknown [id number] 2.16.840.1.157703.3.579.2. 9 1948 Unknown [id number] 2.16.840.1.364861.3.579.2. 125 1948 Unknown [id number] 2.16.840.1.817015.3.579.2. 1258 1948 Unknown [id number] 2.16.840.1.506525.3.579.2. 9 1948 Unknown [id number] 2.16.840.1.609712.3.579.2. 1258 1948 Unknown [id number] 2.16.840.1.932892.3.579.2. 1258 1948 Unknown [id number] 2.16.840.1.161591.3.579.2. 1258 1948 Unknown [id number] 2.16.840.1.098672.3.579.2. 1258 1948 Unknown [id number] 2.16.840.1.721451.3.579.2. 1259 Social History Date Type Detail Facility Start: 08-24-[address] [facility] Never smoked tobacco [facility] Start: 08-24-2023 Tobacco use and exposure Smoke less tobacco non-user [facility] Start: 05-30-2024 End: 10-10-2024 Alcoholic beverage intake Lifetime non-drinker (finding) [facility] Start: 05-30-2024 End: 06-09-2024 History of Social function [facility] Start: 05-30-2024 End: 06-09-2024 Tobacco use panel [facility] Start: 07-21-2023 Alcohol Comment Caffeine intak e: 2-3 cups per day [facility] Start: 1950 Sex assigned at Not on file [facility] Medical Equipment Procedure Code Equipment Code Equipment Origin al Text Equipment Identifier Dates 1 each by Other route Daily [id number] Start: 11-16-2023 1 each by Other route Daily [id number] Start: 11-16-2023 Use as instructed [id number] Start: 09-01-2024 Clinical Notes 04-29-2024 to 10-10-2024 Dick Villegas DPM - 10/10/2024 10:45 AM Oscar Bills MD - 09/19/2024 11:16 AM Oscar Bills MD - 09/19/2024 11:14 AM Oscar Bills MD - 09/19/2024 11:14 AM ESTPatient Instructions Note Date & Type Note Facility 10-10-2024 History of Presen t illness Narrative Images from the original note were not included. Subjective Patient ID: Marquis Rayo is a 74 y.o. female who presents for DM Foot Care (Marquis Rayo is a 74y.o. female who presents for Diabetic nail care. Dr. Bills 09/19/2024 BS 128 A1C 6.3 (08/30)). HPI Chief complaint: Presents requesting care of thickened, discolored and deformed toenails. Chronic toenail deformity of multiple years duration. Denies injury or trauma. Status post total matricectomy bilateral great toes with regrowth. Complains of pressure discomfort with shoe gear, catching and snagging on clothing etc.; Particularly over the past 1-2 months or so. Denies bleeding or drainage. Self-care is difficult, ineffective and not practical; increasing risk exposure. Family members and/or nursing aides unable to provide effective care. Risk factors: Medical comorbidities. Type II diabetes. Diabetic peripheral neuropathy. Diabetic vasculopathy. Obesity. Eliquis therapy. CVI with stasis ulceration by history. Mobility, flexibility and dexterity restraints. Toenail deformity. Digital and/or shoe trauma and related complications. Medications Current Outpatient Medications: acetaminophen (Tylenol) 500 MG tablet, 2 tablets Orally once or twice a day prn fever, Disp: , Rfl: albuterol (2.5 MG/3ML) 0.083% nebulizer solution, Take 3 mL (2.5 mg) by nebulization every 4 (four) hours if needed for wheezing or shortness of breath, Disp: 75 mL, Rfl: 3 albuterol HFA 90 mcg/act inhaler, INHALE 2 PUFFS EVERY 4 HOURS NEEDED, Disp: 8 g, Rfl: 3 Alcohol Swabs (B-D SINGLE USE SWABS REGULAR) pads, 1 each by Other route Daily, Disp: 200 each, Rfl: 3 alendronate (Fosamax) 70 MG tablet, TAKE 1 TABLET ONE TIME WEEKLY, Disp: 12 tablet, Rfl: 3 atorvastatin (Lipitor) 40 MG tablet, Take 1 tablet (40 mg) by mouth Daily, Disp: 30 tablet, Rfl: 11 Blood Glucose Calibration (Apprats Control Solution) High solution, 1 each by Other route Daily, Disp: 1 each, Rfl: 0 Blood Glucose Monitoring Suppl (Apprats Autocode Blood Glucose) w/Device kit, 1 each by Other route Daily, Disp: 1 kit, Rfl: 0 bumetanide (Bumex) 2 MG tablet, TAKE 1 TABLET EVERY DAY, Disp: 90 tablet, Rfl: 3 cholecalciferol (Vitamin D-3) 50 MCG (2000 UT) capsule, Take 2,000 Units by mouth in the morning., Disp: , Rfl: diclofenac sodium (Voltaren) 1 % gel, Apply 2 g topically 4 (four) times a day as needed for pain, Disp: 60 g, Rfl: 3 doxepin (SINEquan) 10 MG capsule, TAKE 1 TO 2 CAPSULES AT BEDTIME, Disp: 180 capsule, Rfl: 3 doxepin (SINEquan) 50 MG capsule, Take 1 capsule (50 mg) by mouth at bedtime 1-2 po q hs, Disp: 90 capsule, Rfl: 3 Eliquis 5 MG tablet, TAKE 1 TABLET TWICE DAILY, Disp: 180 tablet, Rfl: 3 glucose blood (Apprats No Coding Blood Gluc) test strip, 1 each by Other route Daily, Disp: 200 strip, Rfl: 3 glucose blood (True Metrix Blood Glucose Test) test strip, Use as instructed, Disp: 100 strip, Rfl: 3 HYDROcodone-acetaminophen ([place]) 5-325 MG tablet, Take 1 tablet by mouth 4 (four) times a day as needed for severe pain, Disp: 120 tablet, Rfl: 0 levothyroxine (Synthroid, Unithroid) 300 MCG tablet, TAKE 1 TABLET EVERY MORNING, Disp: 90 tablet, Rfl: 3 liothyronine (Cytomel) 5 MCG tablet, Take 1 tablet (5 mcg) by mouth Daily, Disp: 14 tablet, Rfl: 0 mirtazapine (Remeron) 15 MG tablet, Take 1/2-1 at bedtime, must wear mask when taking, Disp: , Rfl: nitrofurantoin, macrocrystal-monohydrate, (Macrobid) 100 MG capsule, TAKE 1 CAPSULE EVERY DAY, Disp: 90 capsule, Rfl: 3 nystatin (Mycostatin) cream, Apply topically 2 (two) times a day, Disp: 30 g, Rfl: 2 omeprazole (PriLOSEC) [address] capsule, TAKE 1 CAPSULE EVERY MORNING BEFORE A MEAL, Disp: 90 capsule, Rfl: 3 PARoxetine (Paxil) 20 MG tablet, TAKE 1 TABLET EVERY DAY, Disp: 90 tablet, Rfl: 3 Prodigy Twist Top Lancets 28G misc, 1 each by Other route Daily, Disp: 200 each, Rfl: 3 QUEtiapine (SEROquel) 50 MG tablet, Take 1 tablet (50 mg) by mouth at bedtime, Disp: 90 tablet, Rfl: 3 rOPINIRole (Requip) 5 MG tablet, TAKE 1 TABLET THREE TIMES DAILY, Disp: 270 tablet, Rfl: 3 semaglutide (Ozempic) 2 MG/1.5ML solution pen-injector, Inject 1 mg under the skin 1 (one) time per week, Disp: 6 each, Rfl: 12 tiZANidine (Zanaflex) 4 MG tablet, TAKE 1 TABLET THREE TIMES DAILY NEEDED, Disp: 270 tablet, Rfl: 3 Allergies Metformin, Nsaids, and Tetanus toxoid Past Surgical History Past Surgical History: Procedure Laterality Date BI US GUIDED BREAST LOCALIZATION AND BIOPSY LEFT Left 06/28/2021 BI US GUIDED BREAST LOCALIZATION AND BIOPSY LEFT 06/28/2021 CARDIAC CATHETERIZATION 2003 CATARACT EXTRACTION 07/2018 x 2 CHOLECYSTECTOMY 2000 COLONOSCOPY 2002, 06/24 CT ANGIOGRAM HEART CORONARY 08/28/2021 CT ANGIOGRAM TAVR 08/28/2021 CT GUIDED TRANSVAGINAL TRANSRECTAL FLUID DRAIN 06/25/2021 CT GUIDED TRANSVAGINAL TRANSRECTAL FLUID DRAIN 06/25/2021 FINGER SURGERY Left Lt fifth finger FOOT SURGERY Right HERNIA REPAIR HYSTERECTOMY >40YRS AGO ROTATOR CUFF REPAIR Left 2011 in [place] THYROIDECTOMY 2008 TOTAL KNEE ARTHROPLASTY 2011 Family History Family History Problem Relation Name Age of Onset Diabetes Mother Hypertension Mother Kidney disease Mother Heart disease Mother Stroke Mother Kidney disease Father Heart disease Father Cancer Brother Diabetes Brother Hypertension Brother Kidney disease Brother Kidney disease Daughter Cancer Father's Brother Heart disease Sibling Diabetes Sibling Objective General assessment: Alert and oriented. Pleasant disposition. Presents via wheelchair, unable to transfer into the treatment chair. Vascular: DP and faintly palpable bilateral. PT non-palpable bilateral. CFT remains fairly brisk all digits. Symmetrical brawny edema bilateral lower extremities and ankles, with chronic stasis dermatitis and pigmentation. Skin temperature: Warm-slightly cool all digits. Neurologic: inconsistent localization of the 5.07 monofilament. Vibratory sensation diminished at the MTP joints. Tactile and light touch sensation is diminished and compromised over the digital maritza Dermatologic: skin turgor is fair. Web space areas are clean, dry, non-inflamed. Toenail pathology: All digits: None are spared: Toenail dystrophy, hypertrophy, thickening, elongation, discoloration, varying degrees of pincer deformity, crumbly texture, subtotal detachment, periungual hyperkeratotic debris, without drainage. No ulcerative changes are noted. Orthopedic: Range of motion: Functional but limited ankle and subtalar joint range of motion. Lesion pattern: No forefoot or digital discrete keratotic lesions are noted. Radiology: Assessment/Plan Symptomatic onychodystrophy/mycosis multiple digits. Type II diabetes. Obesity. 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 Diabetic peripheral neuropathy (Q9). Plan: conservative and palliative care measures are preferred, understood and indicated. Hygiene and skin care measures discussed as able to do so. Encourage compliance with lymphedema pump therapy. Diabetic education and assessment relative to the high risk condition. Procedure: Toenail debridement: Aseptic technique: Hand and power instrumentation: Onychodebridement in length and thickness, with curettage of any cryptotic margins, all periungual debris; providing effective symptom and pressure relief; reducing shoe and digital trauma; reducing potential risks associated with the diabetic vasculopathic condition and related complications. This note was created with the assistance of a speech recognition program. While intending to generate a timely document that accurately reflects the content of the visit, no guarantee can be provided that every grammatical or spelling mistake has been or will be identified or corrected. Thank you for your understanding. Dick Villegas DPM documented in this encounter [facility] 09-19-2024 History of Presen t illness Narrative Associated Problem(s): Stage 3b chronic kidney disease (CKD) ([facility]) Renal function stable. Associated Problem(s): Type 2 diabetes mellitus with polyneuropathy ([facility]) Neuropathy improved and wean off neurontin. Take BID x 7 days, then at bedtime x 7 days, then stop. Associated Problem(s): Type 2 diabetes mellitus with microalbuminuria, without long-term current use of insulin ([facility]) Reports BS controlled and recent A1C 6.3. Stick to ADA diet and limit carbs. Increase ozempic. Associated Problem(s): Spondylosis of 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 Pain stable with norco and continue. Associated Problem(s): Primary insomnia Not sleeping well and stop trazodone. Increase doxepin. Associated Problem(s): Class 3 severe obesity due to excess calories with serious comorbidity and body mass index (BMI) of 50.0 to 59.9 in adult ([facility]) Weight loss indicated Associated Problem(s): Major depressive disorder, recurrent episode, mild (HCC) ([facility]) Symptoms tolerable with medication and continue. Associated Problem(s): Lymphedema Edema improved with medication and continue. Elevate legs PRN. Associated Problem(s): Generalized anxiety disorder (CMS/HCC) Symptoms tolerable with medication and continue. Associated Problem(s): Acute non-recurrent pansinusitis Take antibiotics BID for 10 days. Use prednisone for inflammation. Use sudafed or other decongestants as needed. Use Robitussin or Robitussin-DM for cough. Can use afrin for congestion but no longer than 3 days. Can use Mucinex to bring up phlegm. Use Motrin or Tylenol as needed for fever, aches, or pains. Increase fluid intake and rest. Should improve over next 5-7 days and if no better or worse call for re-evaluation. Images from the original note were not included. Subjective Patient ID: Marquis Rayo is a 74 y.o. female who presents for Follow-up (3 m ) and Sinusitis (Has dizziness as well). Follow up DM, neuropathy, pain, depression, anxiety, insomnia, and edema. Reports BS controlled and 120-150. Recent A1C 6.3. Tries to eat well and stick to ADA diet. Denies signs of elevated BS such as polyuria, polyphagia or polydipsia. Depression stable with medication. Occasional symptoms and at times down and sad but mild. Anxiety stable. Not as stressed out or overwhelmed. Not as nervous or worry as much. Not as mcdaniels or irritable. Overall symptoms tolerable. Not sleeping well with medication. Able to fall asleep but not stay asleep. Wakes up often at night and not rested in am. Neuropathy improved. Feet numb and tingling. Mild burning. Pain worse with walking and standing. Started THC gummies and helps. Wants to stop neurontin. Pain stable. Pain in low back and across top hips. Pain in neck and top shoulders. Occasional tightness and spasms. Using zanaflex PRN and mild relief. Using norco and pain tolerable. Edema controlled with medication. Mild swelling at end of day and if on feet a lot. Edema improved in am and with elevation. C/o cough, congestion, and rhinorrhea x several weeks. Afebrile. Severe fatigue and no energy. Mild cough dry and nonproductive. Denies chest tightness or SOB. HURST and sinus pressure in forehead and cheeks along with postnasal drip. Ears plugged and popping. Sore throat and pain to swallow. Mild nausea. Denies recent sick contacts. Using OTC medication and mild relief. No improvement in symptoms since onset. Sinusitis Pertinent negatives include no coughing or shortness of breath. Review of Systems Respiratory: Negative for cough, shortness of breath and wheezing. Cardiovascular: Negative for chest pain and palpitations. Gastrointestinal: Negative for abdominal pain, diarrhea, nausea and vomiting. Genitourinary: Negative for dysuria. Objective Physical Exam Constitutional: General: She is not in acute distress. Appearance: Normal appearance. HENT: Head: Normocephalic. Right Ear: Tympanic membrane normal. Left Ear: Tympanic membrane normal. Eyes: Extraocular Movements: Extraocular movements intact. Pupils: Pupils are equal, round, and reactive to light. Cardiovascular: Rate and Rhythm: Normal rate and regular rhythm. Heart sounds: No murmur heard. No friction rub. No gallop. Pulmonary: Effort: Pulmonary effort is normal. Breath sounds: Normal breath sounds. No wheezing, rhonchi or rales. Abdominal: General: Bowel sounds are normal. There is no distension. Palpations: Abdomen is soft. Tenderness: There is no abdominal tenderness. There is no guarding or rebound. Musculoskeletal: Cervical back: Neck supple. Right lower leg: No edema. Left lower leg: No edema. Neurological: Mental Status: She is alert. Assessment/Plan Problem List Items Addressed This Visit Generalized anxiety disorder (CMS/HCC) Symptoms tolerable with medication and continue. Lymphedema Edema improved with medication and continue. Elevate legs PRN. Major depressive disorder, recurrent episode, mild (HCC) (CMS/HCC) Symptoms tolerable with medication and continue. Type 2 diabetes mellitus with microalbuminuria, without long-term current use of insulin (CMS/HCC) - Primary Reports BS controlled and recent A1C 6.3. Stick to ADA diet and limit carbs. Increase ozempic. Spondylosis of 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 Pain stable with norco and continue. Class 3 severe obesity due to excess calories with serious comorbidity and body mass index (BMI) of 50.0 to 59.9 in adult ([facility]) Weight loss indicated Primary insomnia Not sleeping well and stop trazodone. Increase doxepin. Relevant Medications mirtazapine (Remeron) 15 MG tablet doxepin (SINEquan) 50 MG capsule Type 2 diabetes mellitus with polyneuropathy ([facility]) Neuropathy improved and wean off neurontin. Take BID x 7 days, then at bedtime x 7 days, then stop. Acute non-recurrent pansinusitis Take antibiotics BID for 10 days. Use prednisone for inflammation. Use sudafed or other decongestants as needed. Use Robitussin or Robitussin-DM for cough. Can use afrin for congestion but no longer than 3 days. Can use Mucinex to bring up phlegm. Use Motrin or Tylenol as needed for fever, aches, or pains. Increase fluid intake and rest. Should improve over next 5-7 days and if no better or worse call for re-evaluation. Relevant Medications cefdinir (Omnicef) 300 MG capsule predniSONE (Deltasone) 50 MG tablet documented in this encounter [facility] 07-13-2024 History of Presen t illness Narrative Associated Order(s): L Inj/Asp: L knee Post-Procedure Diagnose(s): Primary osteoarthritis of left knee Images from the original note were not included. NAME: Marquis Rayo : 1950 HISTORY OF PRESENT ILLNESS: Marquis Rayo is an 74 y.o. @ female. LAST TX 2018 - (L) TKA WAS CANCELLED OCT 2018 D/T CELLULITIS. LT KNEE PAIN FOR YEARS. XRAY 09/28/18 @ [facility] STANDING XR 06/11/18 @ [facility] H/O (R) TKA ~[address] PONCHO SZYMANSKI CORTISONE INJ PRESENTS IN WC, HAS TO USE THIS FOR DISTANCE. SOMETIMES USES ROLLATOR BUT HAS A HARD TIME WALKING/STANDING. PAIN MOSTLY MEDIAL KNEE, CAN RADIATE INTO LOWER LEG SOME. TAKING PERCOCET TID (DR BILLS) AND TAKING TYL OR ALEVE. USING PAIN PATCHES, BIOFREEZE AND LINAMENT. ADMITS BURNING IN KNEE. ADMITS N/T, HX NEUROPATHY AND CELLULITIS. ADMITS OCCAS POPPING/GRINDING. ADMITS GIVING OUT. DOES NOT WAKE AT HS. STAGE 4 KIDNEY DISEASE. PAST MEDICAL HISTORY: Past Medical History: Diagnosis Date Arrhythmia Arthralgia, unspecified joint Candidiasis Cellulitis of left lower extremity Cerebrovascular disease Depression ([facility]) Dermatitis DM (diabetes mellitus) ([facility]) diet controlled Fibromyalgia Fibula fracture L leg CHRIS (generalized anxiety disorder) ([facility]) Generalized edema GERD (gastroesophageal reflux disease) History of MRSA infection HTN (hypertension) ([facility]) Hyperlipidemia ([facility] [place]roidism, postop [place] Insomnia, persistent Leg ulcer ([facility]) Macular degeneration of both eyes, unspecified type Major depressive disorder, recurrent episode, mild ([facility]) [place] Mild intermittent asthma without complication [place] Mixed stress and urge urinary incontinence Obesity Obstructive sleep apnea (NO CPAP REQ) Osteoarthritis Osteoporosis, postmenopausal ([facility]) Polycystic kidney disease just right side Stage 4 CKD Recurrent UTI RLS (restless legs syndrome) SOB (shortness of breath) Stage 3b chronic kidney disease (CKD) ([facility]) Tremor Type 2 diabetes mellitus with hyperglycemia, without long-term current use of insulin [place] PAST SURGICAL HISTORY: Past Surgical History: Procedure Laterality Date BI US GUIDED BREAST LOCALIZATION AND BIOPSY LEFT Left 06/28/2021 BI US GUIDED BREAST LOCALIZATION AND BIOPSY LEFT 06/28/2021 CARDIAC CATHETERIZATION 2002 CATARACT EXTRACTION 07/2018 x 2 CHOLECYSTECTOMY 2000 COLONOSCOPY 2002, 06/24 CT ANGIOGRAM HEART CORONARY 08/28/2021 CT ANGIOGRAM TAVR 08/28/2021 CT GUIDED TRANSVAGINAL TRANSRECTAL FLUID DRAIN 06/25/2021 CT GUIDED TRANSVAGINAL TRANSRECTAL FLUID DRAIN 06/25/2021 FINGER SURGERY Left Lt fifth finger FOOT SURGERY Right HERNIA REPAIR HYSTERECTOMY >40YRS AGO ROTATOR CUFF REPAIR Left 2011 in [place] THYROIDECTOMY 2007 TOTAL KNEE ARTHROPLASTY 2010 ALLERGIES: Allergies Allergen Reactions Keflex [Cephalexin] Metformin GI intolerance Nsaids Kidney failure Tetanus Toxoid Unknown Fever, redness, swelling HOME MEDICATIONS: Current Outpatient Medications Medication Instructions acetaminophen (Tylenol) 500 MG tablet 2 tablets Orally once or twice a day prn fever albuterol (2.5 MG/3ML) 0.083% nebulizer solution as directed Inhalation 3 ml nebulizer bid prn albuterol HFA 90 mcg/act inhaler 2 puffs, Inhalation, Every 4 hours PRN Alcohol Swabs (B-D SINGLE USE SWABS REGULAR) pads 1 each, Other, Daily alendronate (Fosamax) 70 MG tablet TAKE 1 TABLET ONE TIME WEEKLY atorvastatin (LIPITOR) 40 mg, Oral, Daily Blood Glucose Calibration (Apprats Control Solution) High solution 1 each, Other, Daily Blood Glucose Monitoring Suppl (Apprats Autocode Blood Glucose) w/Device kit 1 each, Other, Daily bumetanide (BUMEX) 2 mg, Oral, Daily cholecalciferol (VITAMIN D-3) 2,000 Units, Oral, Daily RT diclofenac sodium (VOLTAREN) 2 g, Topical, 4 times daily PRN doxepin (SINEquan) 10 MG capsule 1-2 po q hs Eliquis 5 mg, Oral, 2 times daily gabapentin (NEURONTIN) 300 mg, Oral, 3 times daily glucose blood (Apprats No Coding Blood Gluc) test strip 1 each, Other, Daily levothyroxine (Synthroid, Unithroid) 300 MCG tablet Every 24 hours liothyronine (CYTOMEL) 5 mcg, Oral, Daily loperamide (Imodium) 2 MG capsule 1 capsule nitrofurantoin (macrocrystal-monohydrate) (MACROBID) 100 mg, Oral, Daily nystatin (Mycostatin) cream Topical, 2 times daily omeprazole (PRILOSEC) 40 mg, Oral, Daily before breakfast PARoxetine (PAXIL) 20 mg, Oral, Daily Prodigy Twist Top Lancets 28G misc 1 each, Other, Daily QUEtiapine (SEROQUEL) 50 mg, Oral, Nightly rOPINIRole (REQUIP) 5 mg, Oral, 3 times daily semaglutide (OZEMPIC) 1 mg, Subcutaneous, Weekly tiZANidine (Zanaflex) 4 MG tablet TAKE 1 TABLET THREE TIMES DAILY NEEDED Vitals: There is no height or weight on file to calculate BMI. PHYSICAL EXAM: Left Knee Exam Tenderness The patient is experiencing tenderness in the medial joint line and lateral joint line. Range of Motion Extension: -5 Flexion: 100 Tests Varus: negative Valgus: negative Other Left knee sensation: burning sensation over knee. Pulse: present Comments: B/L chronic lower leg edema and erythema. Presents in wheelchair IMAGING: ECG 12 lead PERFORMED AT [facility] LOCATION:[id number] L Inj/Asp: L knee on 07/13/2024 9:19 AM Indications: pain Details: anterolateral approach Medications: 40 mg methylPREDNISolone acetate 40 MG/ML Outcome: tolerated well, no immediate complications Site was cleaned with isopropyl alcohol Procedure, treatment alternatives, risks and benefits explained, specific risks discussed. Consent was given by the patient. ASSESSMENT: ICD-10-CM 1. Primary osteoarthritis of left knee M17.12 2. Left knee pain, unspecified chronicity M25.562 PLAN: I reviewed xray findings with the patient and discussed treatment options, answered questions. I discussed with the patient the option of an injection as she is not a surgical candidate for TKA. I advised the patient of risks associated with an injection including a reaction to medication, infection, failure to improve and possible worsening. The patient demonstrated understanding. Patient requesting injection. Skin Cleansed with alcohol swab. Utilizing aseptic technique patient given 40mg Depomedrol was injected. Patient tolerated this well. Neurovasc intact s/p injection. Post injection care instructions discussed. She will follow up in 1 month for RCK. If still painful consider referral to pain management. Questions answered in laymen terms at the bedside. The diagnosis, home exercise plan and any ongoing restrictions/ recommendations reviewed. If unable to be reached in office, I recommend evaluation at nearest Emergency Room if any symptoms worsened or new symptoms develop for requiring urgent evaluation. Fabian Dos Santos APRN-POLYMERIZATION HELPER documented in this encounter [facility] 07-04-2024 Telephone encount er Note This is totally inappropriate if they had a question they should have called us. Yes we can use them the doxepin is at a very low dose. [facility] 07-04-2024 Miscellaneous Notes Formattin g of this note might be different from the original. This is totally inappropriate if they had a question they should have called us. Yes we can use them the doxepin is at a very low dose. Patient called stating she needed a prior authorization for her Doxepin, states she has not received this medication at all. I called the pharmacy to see what was going on with this medication. Pharmacy wanted to see if it was okay to do the combination of the Doxepin and Paroxetine. Sudarshan just asked that if it is okay to do the combination we resend the prescription in as they have closed it and it will confirm it is good to do both medications. documented in this encounter [facility] 07-04-2024 Telephone encount er Note Patient called stating she needed a prior authorization for her Doxepin, states she has not received this medication at all. I called the pharmacy to see what was going on with this medication. Pharmacy wanted to see if it was okay to do the combination of the Doxepin and Paroxetine. Sudarshan just asked that if it is okay to do the combination we resend the prescription in as they have closed it and it will confirm it is good to do both medications. [facility] 06-28-2024 Telephone encount er Note Can a short supply of Liothyronine be sent to [facility] in [place] please? [facility] 06-28-2024 Miscellaneous Notes Formattin g of this note might be different from the original. Can a short supply of Liothyronine be sent to [facility] in [place] please? documented in this encounter [facility] 06-09-2024 History of Presen t illness Narrative Associated Problem(s): Primary insomnia Not sleeping well and try doxepin as prescribed in addition to seroquel. Associated Problem(s): Type 2 diabetes mellitus with microalbuminuria, without long-term current use of insulin ([facility]) Reports BS improved and due for A1C. Stick to ADA diet and limit carbs. Increase ozempic. Associated Problem(s): Medicare annual wellness visit, subsequent Due for labs. Discussed proper diet and regular aerobic exercise. Need aerobic exercise 5-6 days a week for 30 minutes at a time. Smaller portions and limit total calories. Colonoscopy every 10 years. Tetanus every 10 years. Advised not to smoke. Discussed daily Aspirin therapy. Images from the original note were not included. Subjective Patient ID: Marquis Rayo is a 74 y.o. female who presents for Medicare Annual Wellness Visit Subsequent (wellness). Presents for medicare annual wellness visit. Patient feels well today. Weight down 43 pounds in past year but 15 pounds in past month. Changed diuretics and edema much improved. Tries to watch diet and eat healthy. Increased fruits and vegetables. Smaller portions and limits snacking. Tries to limit total daily calories. Did not have A1C drawn. BS controlled 120-130. Seen by neurology for sleep and added doxepin. Advised to continue seroquel since helping depression. Review of Systems Respiratory: Negative for cough, shortness of breath and wheezing. Cardiovascular: Negative for chest pain and palpitations. Gastrointestinal: Negative for abdominal pain, diarrhea, nausea and vomiting. Genitourinary: Negative for dysuria. Objective Physical Exam Constitutional: General: She is not in acute distress. Appearance: Normal appearance. HENT: Head: Normocephalic. Right Ear: Tympanic membrane normal. Left Ear: Tympanic membrane normal. Eyes: Extraocular Movements: Extraocular movements intact. Pupils: Pupils are equal, round, and reactive to light. Cardiovascular: Rate and Rhythm: Normal rate and regular rhythm. Heart sounds: No murmur heard. No friction rub. No gallop. Pulmonary: Effort: Pulmonary effort is normal. Breath sounds: Normal breath sounds. No wheezing, rhonchi or rales. Abdominal: General: Bowel sounds are normal. There is no distension. Palpations: Abdomen is soft. Tenderness: There is no abdominal tenderness. There is no guarding or rebound. Musculoskeletal: General: No swelling or tenderness. Cervical back: Neck supple. Right lower leg: No edema. Left lower leg: No edema. Skin: Findings: No erythema or rash. Neurological: General: No focal deficit present. Mental Status: She is alert and oriented to person, place, and time. Cranial Nerves: No cranial nerve deficit. Motor: No weakness. Gait: Gait normal. Assessment/Plan Problem List Items Addressed This Visit Type 2 diabetes mellitus with microalbuminuria, without long-term current use of insulin ([facility]) Reports BS improved and due for A1C. Stick to ADA diet and limit carbs. Increase ozempic. 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 Medicare annual wellness visit, subsequent - Primary Due for labs. Discussed proper diet and regular aerobic exercise. Need aerobic exercise 5-6 days a week for 30 minutes at a time. Smaller portions and limit total calories. Colonoscopy every 10 years. Tetanus every 10 years. Advised not to smoke. Discussed daily Aspirin therapy. documented in this encounter [facility] 05-30-2024 History of Presen t illness Narrative Images from the original note were not included. Chief Complaint Patient presents with Insomnia Subjective Marquis Kyle Rayo, 74 y.o., female HPI Sleep [place] 74 year old female being seen in Sleep Consultation at the request of Dr. Bills. She states that she has trouble going to sleep- she can't sleep. She may sleep for a few hours and then wake up again. . She has a history of bipolar disorder and is on seroquel. She states that she will on average sleep about 2 hours a night until it catches up with her and then she will sleep for about 6 hours. She states that she is unable to shut her brain off. She is taking Seroquel and using medical marijuana. She has tried and failed trazone and ambien. She is no longer seeing psych as her psychiatrist moved and Dr. Bills took over her meds. She had been in and out of the SNF as the meds were at a high dose and then she would get sedated and then taken off of them and then get put back on. She has a lot of depression. She has a hx of SI but got counseling and is doing better. She has a lot of pain in her low back and legs. She got a cpap machine a couple of months ago. She has had difficulty with masks and is working on getting the correct one. She has not been working with the company at using different masks. She has tried 2 different masks. She has a nasal pillows. She puts it on but then she is up and down through out the night. She has seen an improvement and is more awake during day and dozing off as much as she did previously. She tries to go to bed around 8:30 She gets up for her day at 10:30 or 2 am and sometimes 6 am. She will doze off every day for 10-15 minutes. This can be multiple times a day. She is doing some of her ADLs. She is not exercising. She does not take a true nap. Patient Symptoms Snores: Yes Wakes gasping for breath: Yes Dozes off if inactive: Yes Dozes off with activity: Yes Wakes a lot through the night: Yes Witnessed episodes of apnea: Yes Is sleep restful or restorative: No Bedtime: 8pm Is it hard or easy to fall asleep: Yes Takes naps: No Feels better after napping: Sleepwalk: No Sleeptalk: No Vivid Dreams: Yes Acts out dreams: No Sleep related hallucinations: No Sleep paralysis: Yes Cataplexy: No Restless Leg: Yes Kicking/Jerking at night: Yes TV on while sleeping: she listens to books Smoke before bed: No Caffeine within 3 hours before bed: No Past Medical History: Diagnosis Date Arrhythmia Arthralgia, unspecified joint Candidiasis Cellulitis of left lower extremity Cerebrovascular disease Depression ([facility]) Dermatitis DM (diabetes mellitus) ([facility]) diet controlled Fibromyalgia Fibula fracture L leg CHRIS (generalized anxiety disorder) ([facility]) Generalized edema GERD (gastroesophageal reflux disease) History of MRSA infection HTN (hypertension) ([facility]) Hyperlipidemia ([facility]) Hypothyroidism ([facility]) Hypothyroidism, postop ([facility]) Insomnia, persistent Leg ulcer ([facility]) Macular degeneration of both eyes, unspecified type Major depressive disorder, recurrent episode, mild (HCC) ([facility]) Mild intermittent asthma without complication ([facility]) Mixed stress and urge urinary incontinence Obesity Obstructive sleep apnea (NO CPAP REQ) Osteoarthritis Osteoporosis, postmenopausal ([facility]) Polycystic kidney disease just right side Stage 4 CKD Recurrent UTI RLS (restless legs syndrome) SOB (shortness of breath) Stage 3b chronic kidney disease (CKD) ([facility]) Tremor Type 2 diabetes mellitus with hyperglycemia, without long-term current use of insulin ([facility]) Past Surgical History: Procedure Laterality Date BI US GUIDED BREAST LOCALIZATION AND BIOPSY LEFT Left 06/28/2021 BI US GUIDED BREAST LOCALIZATION AND BIOPSY LEFT 06/28/2021 CARDIAC CATHETERIZATION 2002 CATARACT EXTRACTION 07/2018 x 2 CHOLECYSTECTOMY 2000 COLONOSCOPY 2002, 06/24 CT ANGIOGRAM HEART CORONARY 08/28/2021 CT ANGIOGRAM TAVR 08/28/2021 CT GUIDED TRANSVAGINAL TRANSRECTAL FLUID DRAIN 06/25/2021 CT GUIDED TRANSVAGINAL TRANSRECTAL FLUID DRAIN 06/25/2021 FINGER SURGERY Left Lt fifth finger FOOT SURGERY Right HERNIA REPAIR HYSTERECTOMY >40YRS AGO ROTATOR CUFF REPAIR Left 2012 in [place] THYROIDECTOMY 2008 TOTAL KNEE ARTHROPLASTY 2011 Family History Problem Relation Name Age of Onset Diabetes Mother Hypertension Mother Kidney disease Mother Heart disease Mother Stroke Mother Kidney disease Father Heart disease Father Cancer Brother Diabetes Brother Hypertension Brother Kidney disease Brother Kidney disease Daughter Cancer Father's Brother Heart disease Sibling Diabetes Sibling Social History Tobacco Use Smoking status: Never Smokeless tobacco: Never Substance Use Topics Alcohol use: Never Comment: Caffeine intake: 2-3 cups per day Allergies: Keflex [cephalexin], Metformin, Nsaids, and Tetanus toxoid General: No fever or chills HEENT: No nasal congestion or runny nose Pulmonary: No shortness of breath or cough Cardiovascular: No chest pain or palpitations GI: No nausea or vomiting : No dysuria or hematuria Musculoskeletal: No new aches or pains or muscle weakness Infectious: no recurrent fevers or infections Dermatologic: No rashes or skin lesions Neurologic: No new headaches or dizziness Vitals: 05/30/24 1513 BP: 154/76 Pulse: 90 SpO2: 90% There is no height or weight on file to calculate BMI. Neurologic exam: General Obese, cooperative, pleasant Mental status: Awake, alert to person, place and time. Recent and remote memory are average Attention and concentration are normal. Fund of knowledge is average. HEENT: NC/AT Cranial nerves: CN II: Visual salazar full to confrontation. No loss of vision CN III, IV, : pupils equal round and reactive to light. Extraocular movements intact. No ptosis present. CN V: Facial sensation is normal. CN VII: Full and symmetric facial movement. CN VIII: Hearing is normal CN IX and X: Palate elevates symmetrically. CN XI: Shoulder shrug is normal bilaterally. CN XII: Tongue is midline without atrophy or fasciculation. Speech: Clear and fluent no aphasia or dysarthria Pronator drift: Negative bilateral upper extremity Coordination: Intact, no signs of dysmetria Good finger to nose and rapid alternating movements Sensory: Sensation is intact to light, temperature touch throughout four extremities. Pinprick and vibratory decreased in a stocking distribution Motor: LUE 5/5 RUE 5/5 LLE 3+-4/5 RLE 3+-4/5 Tone: Physiologic, no tremor, bradykinesia or rigidity DTR: Bilateral Biceps 2/4 Bilateral BR 2/4 Bilateral Patellar tr/4 No spasticity Gait: Normal to casual gait Romberg's Negative Review and summary of old records: Assessment/Plan Diagnoses and all orders for this visit: Primary insomnia - doxepin (SINEquan) 10 MG capsule; 1-2 po q hs ETIENNE (obstructive sleep apnea) Hypoxia Sleep disturbance Hypersomnia Snoring 74-year-old female with a severe obstructive sleep apnea with an AHI of 30 with the hypoxia down to 72 percent. Patient has daytime hypersomnolence and snoring. She did get her CPAP machine and she is no where near compliant with it. She has only put it in on 48 percent of the time with 11 percent of the time greater than 4 hours and an average nightly usage of 2 hours and 11 minutes but residual AHI of 4.6 therefore it does work when she is wearing it. She has a significant amount of insomnia and poor sleep hygiene that is leading to trouble sleeping at night not being able to wear her machine. She also has some vision issues and sometimes needs family to help her get it on and they are not always with her at night. She does however feel better when she has a good night with it on and she has had a few of those. She feels more rested and does not doze off as much during the day. She has underlying obesity and is not exercising. She does have some significant limitations with her legs and neuropathy and cramping. We can see her in a separate visit for that. She has quite sedentary With debility. She has tried and failed trazodone Ambien and Seroquel. Plan Her HST was reviewed with her Her compliance download was reviewed as above and she is not compliant She needs to get the machine on every single night for all night long When she is more compliant we will need to do a nocturnal pulse ox to be sure that her hypoxia is also controlled with the use of the machine. She has improve her sleep hygiene go to bed closer to 930 to get up at 5:30 a.m.. She needs to not nap during the day and keep her brain active She needs to be exercising during the day and she can gradually work on that plus being more active around the house The patient was counseled on the need for aggressive diet, exercise, and weight loss. The patient was counseled on proper sleep hygiene and adequate hours of sleep. She will go ahead and do a trial of doxepin 10 mg 1-2 at bedtime and see if this is helpful for her. She can stay on the current Seroquel it is not helping her sleep and it may be treating her bipolar The patient was counseled on the risks of stroke, NE, and sudden with ETIENNE, along with the need for compliance with the CPAP/BiPAP treatment. The diagnosis was all discussed with the patient. All questions were answered and they agreed with the treatment plan. Patient will call if there are any new issues or questions. Pt has been fully educated on their diagnosis, treatment options, follow up plan, and return instructions Return to clinic: 2 months documented in this encounter [facility] 05-10-2024 History of Presen t illness Narrative Images from the original note were not included. Subjective Patient ID: Marquis Rayo is a 74 y.o. female who presents for DM Foot Care ( Marquis Rayo is a 74y.o. female who presents for Diabetic nail care. Dr. Bills 04/29/2024 BS 128 A1C 6.5). HPI Chief complaint: Presents requesting care of thickened, discolored and deformed toenails. Chronic toenail deformity of multiple years duration. Denies injury or trauma. Status post total matricectomy bilateral great toes with regrowth. Complains of pressure discomfort with shoe gear, catching and snagging on clothing etc.; Particularly over the past 1-2 months or so. Denies bleeding or drainage. Self-care is difficult, ineffective and not practical; increasing risk exposure. Family members and/or nursing aides unable to provide effective care. Risk factors: Medical comorbidities. Type II diabetes. Diabetic peripheral neuropathy. Diabetic vasculopathy. Obesity. Eliquis therapy. CVI with stasis ulceration by history. Mobility, flexibility and dexterity restraints. Toenail deformity. Digital and/or shoe trauma and related complications. Medications Current Outpatient Medications: acetaminophen (Tylenol) 500 MG tablet, 2 tablets Orally once or twice a day prn fever, Disp: , Rfl: albuterol (2.5 MG/3ML) 0.083% nebulizer solution, as directed Inhalation 3 ml nebulizer bid prn, Disp: , Rfl: albuterol HFA 90 mcg/act inhaler, INHALE 2 PUFFS EVERY 4 HOURS NEEDED, Disp: 8 g, Rfl: 3 Alcohol Swabs (B-D SINGLE USE SWABS REGULAR) pads, 1 each by Other route Daily, Disp: 200 each, Rfl: 3 alendronate (Fosamax) 70 MG tablet, TAKE 1 TABLET ONE TIME WEEKLY, Disp: 12 tablet, Rfl: 3 atorvastatin (Lipitor) 40 MG tablet, Take 1 tablet (40 mg) by mouth Daily, Disp: 30 tablet, Rfl: 11 Blood Glucose Calibration (DiJiPOPy Control Solution) High solution, 1 each by Other route Daily, Disp: 1 each, Rfl: 0 Blood Glucose Monitoring Suppl (Apprats Autocode Blood Glucose) w/Device kit, 1 each by Other route Daily, Disp: 1 kit, Rfl: 0 bumetanide (Bumex) 2 MG tablet, Take 1 tablet (2 mg) by mouth Daily, Disp: 30 tablet, Rfl: 5 cholecalciferol (Vitamin D-3) 50 MCG (2000 UT) capsule, Take 2,000 Units by mouth in the morning., Disp: , Rfl: diclofenac sodium (Voltaren) 1 % gel, Apply 2 g topically 4 (four) times a day as needed for pain, Disp: 60 g, Rfl: 3 Eliquis 5 MG tablet, TAKE 1 TABLET TWICE DAILY, Disp: 180 tablet, Rfl: 3 gabapentin (Neurontin) 300 MG capsule, TAKE 1 CAPSULE THREE TIMES DAILY, Disp: 270 capsule, Rfl: 3 glucose blood (Apprats No Coding Blood Gluc) test strip, 1 each by Other route Daily, Disp: 200 strip, Rfl: 3 levothyroxine (Synthroid, Unithroid) 300 MCG tablet, 1 (one) time each day at the same time., Disp: , Rfl: liothyronine (Cytomel) 5 MCG tablet, Take 1 tablet (5 mcg) by mouth Daily, Disp: 90 tablet, Rfl: 3 loperamide (Imodium) 2 MG capsule, 1 capsule., Disp: , Rfl: nitrofurantoin, macrocrystal-monohydrate, (Macrobid) 100 MG capsule, TAKE 1 CAPSULE EVERY DAY, Disp: 90 capsule, Rfl: 3 nystatin (Mycostatin) cream, Apply topically 2 (two) times a day, Disp: 30 g, Rfl: 2 omeprazole (PriLOSEC) [address] capsule, Take 40 mg by mouth in the morning. Take before meals. Do not crush or chew.., Disp: , Rfl: oxyCODONE-acetaminophen (Percocet) 5-325 MG tablet, Take 1 tablet by mouth 4 (four) times a day as needed for severe pain, Disp: 120 tablet, Rfl: 0 PARoxetine (Paxil) 20 MG tablet, TAKE 1 TABLET EVERY DAY, Disp: 90 tablet, Rfl: 3 Prodigy Twist Top Lancets 28G misc, 1 each by Other route Daily, Disp: 200 each, Rfl: 3 rOPINIRole (Requip) 5 MG tablet, TAKE 1 TABLET THREE TIMES DAILY, Disp: 270 tablet, Rfl: 3 semaglutide (Ozempic) 2 MG/1.5ML solution pen-injector, Inject 1 mg under the skin 1 (one) time per week, Disp: 6 each, Rfl: 12 tiZANidine (Zanaflex) 4 MG tablet, TAKE 1 TABLET THREE TIMES DAILY NEEDED, Disp: 270 tablet, Rfl: 3 zolpidem (Ambien) 5 MG tablet, Take 1 tablet (5 mg) by mouth as needed at bedtime for sleep, Disp: 30 tablet, Rfl: 2 Allergies Keflex [cephalexin], Metformin, Sertraline, Nsaids, and Tetanus toxoid Past Surgical History Past Surgical History: Procedure Laterality Date BI US GUIDED BREAST LOCALIZATION AND BIOPSY LEFT Left 06/28/2021 BI US GUIDED BREAST LOCALIZATION AND BIOPSY LEFT 06/28/2021 CARDIAC CATHETERIZATION 2002 CATARACT EXTRACTION 07/2018 x 2 CHOLECYSTECTOMY 2000 COLONOSCOPY 2002, 06/24 CT ANGIOGRAM HEART CORONARY 08/28/2021 CT ANGIOGRAM TAVR 08/28/2021 CT GUIDED TRANSVAGINAL TRANSRECTAL FLUID DRAIN 06/25/2021 CT GUIDED TRANSVAGINAL TRANSRECTAL FLUID DRAIN 06/25/2021 FINGER SURGERY Left Lt fifth finger FOOT SURGERY Right HERNIA REPAIR HYSTERECTOMY >40YRS AGO ROTATOR CUFF REPAIR Left 2011 in [place] THYROIDECTOMY 2008 TOTAL KNEE ARTHROPLASTY 2010 Family History Family History Problem Relation Name Age of Onset Diabetes Mother Hypertension Mother Kidney disease Mother Heart disease Mother Stroke Mother Kidney disease Father Heart disease Father Cancer Brother Diabetes Brother Hypertension Brother Kidney disease Brother Kidney disease Daughter Cancer Father's Brother Heart disease Sibling Diabetes Sibling Objective General assessment: Alert and oriented. Pleasant disposition. Presents via wheelchair, able to transfer into the treatment chair. Vascular: DP and faintly palpable bilateral. PT non-palpable bilateral. CFT remains fairly brisk all digits. Symmetrical brawny edema bilateral lower extremities and ankles, with chronic stasis dermatitis and pigmentation. Skin temperature: Warm-cool all digits. Neurologic: inconsistent localization of the 5.07 monofilament. Vibratory sensation diminished at the MTP joints. Tactile and light touch sensation is diminished and compromised over the digital maritza Dermatologic: skin turgor is fair. Web space areas are clean, dry, non-inflamed. Toenail pathology: All digits: None are spared: Toenail dystrophy, hypertrophy, thickening, elongation, discoloration, varying degrees of pincer deformity, crumbly texture, subtotal detachment, periungual hyperkeratotic debris, without drainage. No ulcerative changes are noted. Orthopedic: Range of motion: Functional but limited ankle and subtalar joint range of motion. Lesion pattern: No forefoot or digital discrete keratotic lesions are noted. Radiology: Assessment/Plan Symptomatic onychodystrophy/mycosis multiple digits. Type II diabetes. Obesity. 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 Diabetic peripheral neuropathy (Q9). Plan: conservative and palliative care measures are preferred, understood and indicated. Hygiene and skin care measures discussed as able to do so. Encourage compliance with lymphedema pump therapy. Diabetic education and assessment relative to the high risk condition. Procedure: Toenail debridement: Aseptic technique: Hand and power instrumentation: Onychodebridement in length and thickness, with curettage of any cryptotic margins, all periungual debris; providing effective symptom and pressure relief; reducing shoe and digital trauma; reducing potential risks associated with the diabetic vasculopathic condition and related complications. This note was created with the assistance of a speech recognition program. While intending to generate a timely document that accurately reflects the content of the visit, no guarantee can be provided that every grammatical or spelling mistake has been or will be identified or corrected. Thank you for your understanding. Dick Villegas DPM documented in this encounter [facility] 05-10-2024 Instructions Dick Villegas DPM - 05/10/2024 1:00 PM EDT As noted documented in this encounter [facility] 04-29-2024 History of Presen t illness Narrative Associated Problem(s): Obesity, morbid, BMI 50 or higher ([facility]/HCC) Weight loss indicated Associated Problem(s): Stage 3b chronic kidney disease (CKD) ([facility]) Renal function stable. Associated Problem(s): Type 2 diabetes mellitus with polyneuropathy (CMS/HCC) Continued pain and numbness and continue neurontin. Associated Problem(s): Type 2 diabetes mellitus with microalbuminuria, without long-term current use of insulin (CMS/HCC) Reports BS improved and due for A1C. Stick to ADA diet and limit carbs. Increase ozempic. Associated Problem(s): Spondylosis of 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 Pain stable with percocet and continue. The patient needs a motorized bariatric wheelchair to assist with mobility related ADLs. Not able to walk with cane or walker. The patient needs a lift chair to get up from sitting and a trapeze to help get in and out of bed. Associated Problem(s): Primary insomnia Not sleeping well with trazodone and stop. Try ambien. Associated Problem(s): Major depressive disorder, recurrent episode, mild (HCC) (CMS/HCC) Symptoms tolerable with medication and continue. Associated Problem(s): Lymphedema Edema worse and stop lasix. Try bumex. Elevate legs PRN. Associated Problem(s): Generalized anxiety disorder (CMS/HCC) Symptoms tolerable with medication and continue. Images from the original note were not included. Subjective Patient ID: Marquis Rayo is a 74 y.o. female who presents for Follow-up (Er follow up). Follow up DM, neuropathy, pain, depression, anxiety, insomnia, and edema. Reports BS controlled and 110-125. Did not have A1C drawn but still has order. Tries to eat well and stick to ADA diet. Denies signs of elevated BS such as polyuria, polyphagia or polydipsia. Depression stable with paxil. Occasional symptoms and at times down and sad but mild. Anxiety stable. Not as stressed out or overwhelmed. Not as nervous or worry as much. Not as mcdaniels or irritable. Overall symptoms tolerable. Not sleeping well with trazodone. Able to fall asleep but not stay asleep. Wakes up often at night and not rested in am. Neuropathy stable. Feet numb and tingling. Frequent burning. Pain worse with walking and standing. Neurontin helps with symptoms. Pain stable. Pain in low back and across top hips. Pain in neck and top shoulders. Occasional tightness and spasms. Using zanaflex PRN and mild relief. Using percocet and pain tolerable. Needs a new wheelchair. Current chair not proper size and not able to use it for transportation. Needs new bariatric power chair to help with ADLs and to get on TRIPS. The patient also needs a lift chair to get up from sitting and a trapeze to help get in and out of bed. Edema worse. Increased swelling in feelt and ankles. Edema worse at end of day and if on feet a lot. Edema improved in am and with elevation. Feels like lasix no longer helping. Review of Systems Respiratory: Negative for cough, shortness of breath and wheezing. Cardiovascular: Negative for chest pain and palpitations. Gastrointestinal: Negative for abdominal pain, diarrhea, nausea and vomiting. Genitourinary: Negative for dysuria. Objective Physical Exam Constitutional: General: She is not in acute distress. Appearance: Normal appearance. HENT: Head: Normocephalic. Right Ear: Tympanic membrane normal. Left Ear: Tympanic membrane normal. Eyes: Extraocular Movements: Extraocular movements intact. Pupils: Pupils are equal, round, and reactive to light. Cardiovascular: Rate and Rhythm: Normal rate and regular rhythm. Heart sounds: No murmur heard. No friction rub. No gallop. Pulmonary: Effort: Pulmonary effort is normal. Breath sounds: Normal breath sounds. No wheezing, rhonchi or rales. Abdominal: General: Bowel sounds are normal. There is no distension. Palpations: Abdomen is soft. Tenderness: There is no abdominal tenderness. There is no guarding or rebound. Musculoskeletal: Cervical back: Neck supple. Right lower leg: No edema. Left lower leg: No edema. Neurological: Mental Status: She is alert. Assessment/Plan Problem List Items Addressed This Visit Generalized anxiety disorder ([facility]) Symptoms tolerable with medication and continue. Lymphedema Edema worse and stop lasix. Try bumex. Elevate legs PRN. Relevant Medications bumetanide (Bumex) 2 MG tablet Major depressive disorder, recurrent episode, mild (HCC) ([facility]) Symptoms tolerable with medication and continue. Stage 3b chronic kidney disease (CKD) ([facility]) Renal function stable. Type 2 diabetes mellitus with microalbuminuria, without long-term current use of insulin ([facility]) - Primary Reports BS improved and due for A1C. Stick to ADA diet and limit carbs. Increase ozempic. Spondylosis of 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 Pain stable with percocet and continue. The patient needs a motorized bariatric wheelchair to assist with mobility related ADLs. Not able to walk with cane or walker. The patient needs a lift chair to get up from sitting and a trapeze to help get in and out of bed. Obesity, morbid, BMI 50 or higher ([facility]) Weight loss indicated Primary insomnia Not sleeping well with trazodone and stop. Try ambien. Relevant Medications zolpidem (Ambien) 5 MG tablet Type 2 diabetes mellitus with polyneuropathy ([facility]) Continued pain and numbness and continue neurontin. 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, without long-term current use of insulin ([facility]/HCC) Primary insomnia Persistent disorder of initiating or maintaining sleep documented in this encounter [facility] HealthcareEvaluation note* Diagnosis Type 2 diabetes mellitus with microalbuminuria, without long-term current use of insulin (CMS/HCC)- Primary Major depressive disorder, recurrent episode, mild (HCC) (CMS/HCC) Major depressive disorder, recurrent episode, mild Generalized anxiety disorder (CMS/HCC) Generalized anxiety disorder Spondylosis of 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 Cervical spondylosis without myelopathy Primary insomnia Persistent disorder of initiating or maintaining sleep Restless legs Restless legs syndrome (RLS) Generalized edema Edema Gastroesophageal reflux disease without esophagitis Esophageal reflux Bilateral primary osteoarthritis of knee Post-operative hypothyroidism (CMS/[facility]) 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, without long-term current use of insulin ([facility]/HCC)- Primary Type 2 diabetes mellitus with polyneuropathy ([facility]) Type II or unspecified type diabetes mellitus with neurological manifestations, not stated as uncontrolled Spondylosis of 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 Cervical spondylosis without myelopathy Major depressive disorder, recurrent episode, mild (HCC) ([facility]) Major depressive disorder, recurrent episode, mild Generalized anxiety disorder ([facility]) Generalized anxiety disorder Primary insomnia Persistent disorder of initiating or maintaining sleep Obstructive sleep apnea (adult) (pediatric) Generalized edema Edema Gastroesophageal reflux disease without esophagitis Esophageal reflux Bilateral primary osteoarthritis of knee Type 2 diabetes mellitus with microalbuminuria, without long-term current use of insulin ([facility])- Primary Type 2 diabetes mellitus with polyneuropathy ([facility]) Type II or unspecified type diabetes mellitus with neurological manifestations, not stated as uncontrolled Spondylosis of 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 Cervical spondylosis without myelopathy Major depressive disorder, recurrent episode, mild (HCC) (CMS/HCC) Major depressive disorder, recurrent episode, mild Generalized anxiety disorder ([facility]/HCC) Generalized anxiety disorder Primary insomnia Persistent disorder of initiating or maintaining sleep Generalized edema Edema Gastroesophageal reflux disease without esophagitis Esophageal reflux Type 2 diabetes mellitus with diabetic chronic kidney disease ([facility]) Chronic kidney disease, stage 3b (HCC) ([facility]) Morbid (severe) obesity due to excess calories ([facility]) Body mass index (BMI) 60.0-69.9, adult ([facility]) Type 2 diabetes mellitus with microalbuminuria, without long-term current use of insulin ([facility])- Primary Lymphedema Other noninfectious lymphedema Type 2 diabetes mellitus with polyneuropathy ([facility]) Type II or unspecified type diabetes mellitus with neurological manifestations, not stated as uncontrolled Spondylosis of 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 Major depressive disorder, recurrent episode, mild (HCC) ([facility]) Major depressive disorder, recurrent episode, mild Generalized anxiety disorder ([facility]) Generalized anxiety disorder Primary insomnia Persistent disorder of initiating or maintaining sleep Type 2 diabetes mellitus with diabetic chronic kidney disease ([facility]) Chronic kidney disease, stage 3a (HCC) ([facility]) Morbid (severe) obesity due to excess calories ([facility]) Body mass index (BMI) 50.0-59.9, adult ([facility]) Stage 3b chronic kidney disease (CKD) ([facility]) Obesity, morbid, BMI 50 or higher ([facility]) Medicare annual wellness visit, subsequent- Primary 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, without long-term current use of insulin ([facility]) Primary insomnia Persistent disorder of initiating or maintaining sleep Post-operative hypothyroidism ([facility]) Postsurgical hypothyroidism documented in this encounter [facility] HealthcareEvaluation note* Diagnosis Type 2 diabetes mellitus with microalbuminuria, without long-term current use of insulin ([facility])- Primary Major depressive disorder, recurrent episode, mild (HCC) ([facility]) Major depressive disorder, recurrent episode, mild Generalized anxiety disorder ([facility]) Generalized anxiety disorder Spondylosis of 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 Cervical spondylosis without myelopathy Primary insomnia Persistent disorder of initiating or maintaining sleep Restless legs Restless legs syndrome (RLS) Generalized edema Edema Gastroesophageal reflux disease without esophagitis Esophageal reflux Bilateral primary osteoarthritis of knee Post-operative hypothyroidism ([facility]) 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, without long-term current use of insulin ([facility])- Primary Type 2 diabetes mellitus with polyneuropathy ([facility]) Type II or unspecified type diabetes mellitus with neurological manifestations, not stated as uncontrolled Spondylosis of 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 Cervical spondylosis without myelopathy Major depressive disorder, recurrent episode, mild (HCC) ([facility]) Major depressive disorder, recurrent episode, mild Generalized anxiety disorder ([facility]) Generalized anxiety disorder Primary insomnia Persistent disorder of initiating or maintaining sleep Obstructive sleep apnea (adult) (pediatric) Generalized edema Edema Gastroesophageal reflux disease without esophagitis Esophageal reflux Bilateral primary osteoarthritis of knee Type 2 diabetes mellitus with microalbuminuria, without long-term current use of insulin ([facility])- Primary Type 2 diabetes mellitus with polyneuropathy ([facility]) Type II or unspecified type diabetes mellitus with neurological manifestations, not stated as uncontrolled Spondylosis of 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 Cervical spondylosis without myelopathy Major depressive disorder, recurrent episode, mild (HCC) ([facility]) Major depressive disorder, recurrent episode, mild Generalized anxiety disorder ([facility]) Generalized anxiety disorder Primary insomnia Persistent disorder of initiating or maintaining sleep Generalized edema Edema Gastroesophageal reflux disease without esophagitis Esophageal reflux Type 2 diabetes mellitus with diabetic chronic kidney disease ([facility]) Chronic kidney disease, stage 3b (HCC) ([facility]) Morbid (severe) obesity due to excess calories ([facility]) Body mass index (BMI) 60.0-69.9, adult ([facility]) Type 2 diabetes mellitus with microalbuminuria, without long-term current use of insulin ([facility])- Primary Lymphedema Other noninfectious lymphedema Type 2 diabetes mellitus with polyneuropathy ([facility]) Type II or unspecified type diabetes mellitus with neurological manifestations, not stated as uncontrolled Spondylosis of 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 Major depressive disorder, recurrent episode, mild (HCC) ([facility]) Major depressive disorder, recurrent episode, mild Generalized anxiety disorder ([facility]) Generalized anxiety disorder Primary insomnia Persistent disorder of initiating or maintaining sleep Type 2 diabetes mellitus with diabetic chronic kidney disease ([facility]) Chronic kidney disease, stage 3a (HCC) ([facility]) Morbid (severe) obesity due to excess calories ([facility]) Body mass index (BMI) 50.0-59.9, adult ([facility]) Stage 3b chronic kidney disease (CKD) ([facility]) Obesity, morbid, BMI 50 or higher ([facility]) Medicare annual wellness visit, subsequent- Primary 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, without long-term current use of insulin ([facility]) Primary insomnia Persistent disorder of initiating or maintaining sleep Primary insomnia Persistent disorder of initiating or maintaining sleep documented in this encounter [facility] Diagnosis Type 2 diabetes mellitus with microalbuminuria, without long-term current use of insulin ([facility])- Primary Major depressive disorder, recurrent episode, mild (HCC) ([facility]) Major depressive disorder, recurrent episode, mild Generalized anxiety disorder ([facility]) Generalized anxiety disorder Spondylosis of 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 Cervical spondylosis without myelopathy Primary insomnia Persistent disorder of initiating or maintaining sleep Restless legs Restless legs syndrome (RLS) Generalized edema Edema Gastroesophageal reflux disease without esophagitis Esophageal reflux Bilateral primary osteoarthritis of knee Post-operative hypothyroidism ([facility]) 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, without long-term current use of insulin ([facility])- Primary Type 2 diabetes mellitus with polyneuropathy ([facility]) Type II or unspecified type diabetes mellitus with neurological manifestations, not stated as uncontrolled Spondylosis of 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 Cervical spondylosis without myelopathy Major depressive disorder, recurrent episode, mild (HCC) ([facility]) Major depressive disorder, recurrent episode, mild Generalized anxiety disorder ([facility]) Generalized anxiety disorder Primary insomnia Persistent disorder of initiating or maintaining sleep Obstructive sleep apnea (adult) (pediatric) Generalized edema Edema Gastroesophageal reflux disease without esophagitis Esophageal reflux Bilateral primary osteoarthritis of knee Type 2 diabetes mellitus with microalbuminuria, without long-term current use of insulin ([facility])- Primary Type 2 diabetes mellitus with polyneuropathy ([facility]) Type II or unspecified type diabetes mellitus with neurological manifestations, not stated as uncontrolled Spondylosis of 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 Cervical spondylosis without myelopathy Major depressive disorder, recurrent episode, mild (HCC) ([facility]) Major depressive disorder, recurrent episode, mild Generalized anxiety disorder ([facility]) Generalized anxiety disorder Primary insomnia Persistent disorder of initiating or maintaining sleep Generalized edema Edema Gastroesophageal reflux disease without esophagitis Esophageal reflux Type 2 diabetes mellitus with diabetic chronic kidney disease ([facility]) Chronic kidney disease, stage 3b (HCC) ([facility]) Morbid (severe) obesity due to excess calories ([facility]) Body mass index (BMI) 60.0-69.9, adult ([facility]) Type 2 diabetes mellitus with microalbuminuria, without long-term current use of insulin ([facility])- Primary Lymphedema Other noninfectious lymphedema Type 2 diabetes mellitus with polyneuropathy ([facility]) Type II or unspecified type diabetes mellitus with neurological manifestations, not stated as uncontrolled Spondylosis of 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 Major depressive disorder, recurrent episode, mild (HCC) ([facility]) Major depressive disorder, recurrent episode, mild Generalized anxiety disorder ([facility]) Generalized anxiety disorder Primary insomnia Persistent disorder of initiating or maintaining sleep Type 2 diabetes mellitus with diabetic chronic kidney disease ([facility]) Chronic kidney disease, stage 3a (HCC) ([facility]) Morbid (severe) obesity due to excess calories ([facility]) Body mass index (BMI) 50.0-59.9, adult ([facility]) Stage 3b chronic kidney disease (CKD) ([facility]) Obesity, morbid, BMI 50 or higher ([facility]) Medicare annual wellness visit, subsequent- Primary 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, without long-term current use of insulin ([facility]) Primary insomnia Persistent disorder of initiating or maintaining sleep Primary osteoarthritis of left knee- Primary Left knee pain, unspecified chronicity documented in this encounter [facility]* Diagnosis Type 2 diabetes mellitus with microalbuminuria, without long-term current use of insulin ([facility])- Primary Major depressive disorder, recurrent episode, mild (HCC) ([facility]) Major depressive disorder, recurrent episode, mild Generalized anxiety disorder ([facility]) Generalized anxiety disorder Spondylosis of 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 Cervical spondylosis without myelopathy Primary insomnia Persistent disorder of initiating or maintaining sleep Restless legs Restless legs syndrome (RLS) Generalized edema Edema Gastroesophageal reflux disease without esophagitis Esophageal reflux Bilateral primary osteoarthritis of knee Post-operative hypothyroidism ([facility]) 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, without long-term current use of insulin ([facility])- Primary Type 2 diabetes mellitus with polyneuropathy ([facility]) Type II or unspecified type diabetes mellitus with neurological manifestations, not stated as uncontrolled Spondylosis of 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 Cervical spondylosis without myelopathy Major depressive disorder, recurrent episode, mild (HCC) ([facility]) Major depressive disorder, recurrent episode, mild Generalized anxiety disorder ([facility]) Generalized anxiety disorder Primary insomnia Persistent disorder of initiating or maintaining sleep Obstructive sleep apnea (adult) (pediatric) Generalized edema Edema Gastroesophageal reflux disease without esophagitis Esophageal reflux Bilateral primary osteoarthritis of knee Type 2 diabetes mellitus with microalbuminuria, without long-term current use of insulin ([facility])- Primary Type 2 diabetes mellitus with polyneuropathy ([facility]) Type II or unspecified type diabetes mellitus with neurological manifestations, not stated as uncontrolled Spondylosis of 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 Cervical spondylosis without myelopathy Major depressive disorder, recurrent episode, mild (HCC) ([facility]) Major depressive disorder, recurrent episode, mild Generalized anxiety disorder ([facility]) Generalized anxiety disorder Primary insomnia Persistent disorder of initiating or maintaining sleep Generalized edema Edema Gastroesophageal reflux disease without esophagitis Esophageal reflux Type 2 diabetes mellitus with diabetic chronic kidney disease ([facility]) Chronic kidney disease, stage 3b (HCC) ([facility]) Morbid (severe) obesity due to excess calories ([facility]) Body mass index (BMI) 60.0-69.9, adult ([facility]) Type 2 diabetes mellitus with microalbuminuria, without long-term current use of insulin ([facility])- Primary Lymphedema Other noninfectious lymphedema Type 2 diabetes mellitus with polyneuropathy ([facility]) Type II or unspecified type diabetes mellitus with neurological manifestations, not stated as uncontrolled Spondylosis of 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 Major depressive disorder, recurrent episode, mild (HCC) ([facility]) Major depressive disorder, recurrent episode, mild Generalized anxiety disorder ([facility]) Generalized anxiety disorder Primary insomnia Persistent disorder of initiating or maintaining sleep Type 2 diabetes mellitus with diabetic chronic kidney disease ([facility]) Chronic kidney disease, stage 3a (HCC) ([facility]) Morbid (severe) obesity due to excess calories ([facility]) Body mass index (BMI) 50.0-59.9, adult ([facility]) Stage 3b chronic kidney disease (CKD) ([facility]) Obesity, morbid, BMI 50 or higher ([facility]) Medicare annual wellness visit, subsequent- Primary 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, without long-term current use of insulin ([facility]) Primary insomnia Persistent disorder of initiating or maintaining sleep Fibromyalgia Unspecified myalgia and myositis documented in this encounter [facility]* Diagnosis Type 2 diabetes mellitus with microalbuminuria, without long-term current use of insulin ([facility])- Primary Major depressive disorder, recurrent episode, mild (HCC) ([facility]) Major depressive disorder, recurrent episode, mild Generalized anxiety disorder ([facility]) Generalized anxiety disorder Spondylosis of 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 Cervical spondylosis without myelopathy Primary insomnia Persistent disorder of initiating or maintaining sleep Restless legs Restless legs syndrome (RLS) Generalized edema Edema Gastroesophageal reflux disease without esophagitis Esophageal reflux Bilateral primary osteoarthritis of knee Post-operative hypothyroidism ([facility]) 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, without long-term current use of insulin ([facility])- Primary Type 2 diabetes mellitus with polyneuropathy ([facility]) Type II or unspecified type diabetes mellitus with neurological manifestations, not stated as uncontrolled Spondylosis of 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 Cervical spondylosis without myelopathy Major depressive disorder, recurrent episode, mild (HCC) ([facility]) Major depressive disorder, recurrent episode, mild Generalized anxiety disorder ([facility]) Generalized anxiety disorder Primary insomnia Persistent disorder of initiating or maintaining sleep Obstructive sleep apnea (adult) (pediatric) Generalized edema Edema Gastroesophageal reflux disease without esophagitis Esophageal reflux Bilateral primary osteoarthritis of knee Type 2 diabetes mellitus with microalbuminuria, without long-term current use of insulin ([facility])- Primary Type 2 diabetes mellitus with polyneuropathy ([facility]) Type II or unspecified type diabetes mellitus with neurological manifestations, not stated as uncontrolled Spondylosis of 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 Cervical spondylosis without myelopathy Major depressive disorder, recurrent episode, mild (HCC) ([facility]) Major depressive disorder, recurrent episode, mild Generalized anxiety disorder ([facility]) Generalized anxiety disorder Primary insomnia Persistent disorder of initiating or maintaining sleep Generalized edema Edema Gastroesophageal reflux disease without esophagitis Esophageal reflux Type 2 diabetes mellitus with diabetic chronic kidney disease ([facility]) Chronic kidney disease, stage 3b (HCC) ([facility]) Morbid (severe) obesity due to excess calories ([facility]) Body mass index (BMI) 60.0-69.9, adult ([facility]) Type 2 diabetes mellitus with microalbuminuria, without long-term current use of insulin ([facility])- Primary Lymphedema Other noninfectious lymphedema Type 2 diabetes mellitus with polyneuropathy ([facility]) Type II or unspecified type diabetes mellitus with neurological manifestations, not stated as uncontrolled Spondylosis of 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 Major depressive disorder, recurrent episode, mild (HCC) ([facility]) Major depressive disorder, recurrent episode, mild Generalized anxiety disorder ([facility]) Generalized anxiety disorder Primary insomnia Persistent disorder of initiating or maintaining sleep Type 2 diabetes mellitus with diabetic chronic kidney disease ([facility]) Chronic kidney disease, stage 3a (HCC) ([facility]) Morbid (severe) obesity due to excess calories ([facility]) Body mass index (BMI) 50.0-59.9, adult ([facility]) Stage 3b chronic kidney disease (CKD) ([facility]) Obesity, morbid, BMI 50 or higher ([facility]) Medicare annual wellness visit, subsequent- Primary 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, without long-term current use of insulin ([facility]) Primary insomnia Persistent disorder of initiating or maintaining sleep ETIENNE (obstructive sleep apnea)- Primary Obstructive sleep apnea (adult) (pediatric) Hypoxia Hypoxemia Hypersomnia Hypersomnia, unspecified Generalized anxiety disorder ([facility]) Generalized anxiety disorder Major depressive disorder, recurrent episode, mild (HCC) ([facility]) Major depressive disorder, recurrent episode, mild documented in this encounter [facility]* Diagnosis Type 2 diabetes mellitus with microalbuminuria, without long-term current use of insulin ([facility])- Primary Major depressive disorder, recurrent episode, mild (HCC) ([facility]) Major depressive disorder, recurrent episode, mild Generalized anxiety disorder ([facility]) Generalized anxiety disorder Spondylosis of 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 Cervical spondylosis without myelopathy Primary insomnia Persistent disorder of initiating or maintaining sleep Restless legs Restless legs syndrome (RLS) Generalized edema Edema Gastroesophageal reflux disease without esophagitis Esophageal reflux Bilateral primary osteoarthritis of knee Post-operative hypothyroidism ([facility]) 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, without long-term current use of insulin ([facility])- Primary Type 2 diabetes mellitus with polyneuropathy ([facility]) Type II or unspecified type diabetes mellitus with neurological manifestations, not stated as uncontrolled Spondylosis of 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 Cervical spondylosis without myelopathy Major depressive disorder, recurrent episode, mild (HCC) ([facility]) Major depressive disorder, recurrent episode, mild Generalized anxiety disorder ([facility]) Generalized anxiety disorder Primary insomnia Persistent disorder of initiating or maintaining sleep Obstructive sleep apnea (adult) (pediatric) Generalized edema Edema Gastroesophageal reflux disease without esophagitis Esophageal reflux Bilateral primary osteoarthritis of knee Type 2 diabetes mellitus with microalbuminuria, without long-term current use of insulin ([facility])- Primary Type 2 diabetes mellitus with polyneuropathy ([facility]) Type II or unspecified type diabetes mellitus with neurological manifestations, not stated as uncontrolled Spondylosis of 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 Cervical spondylosis without myelopathy Major depressive disorder, recurrent episode, mild (HCC) ([facility]) Major depressive disorder, recurrent episode, mild Generalized anxiety disorder ([facility]) Generalized anxiety disorder Primary insomnia Persistent disorder of initiating or maintaining sleep Generalized edema Edema Gastroesophageal reflux disease without esophagitis Esophageal reflux Type 2 diabetes mellitus with diabetic chronic kidney disease ([facility]) Chronic kidney disease, stage 3b (HCC) ([facility]) Morbid (severe) obesity due to excess calories ([facility]) Body mass index (BMI) 60.0-69.9, adult ([facility]) Type 2 diabetes mellitus with microalbuminuria, without long-term current use of insulin ([facility])- Primary Lymphedema Other noninfectious lymphedema Type 2 diabetes mellitus with polyneuropathy ([facility]) Type II or unspecified type diabetes mellitus with neurological manifestations, not stated as uncontrolled Spondylosis of 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 Major depressive disorder, recurrent episode, mild (HCC) ([facility]) Major depressive disorder, recurrent episode, mild Generalized anxiety disorder ([facility]) Generalized anxiety disorder Primary insomnia Persistent disorder of initiating or maintaining sleep Type 2 diabetes mellitus with diabetic chronic kidney disease ([facility]) Chronic kidney disease, stage 3a (HCC) ([facility]) Morbid (severe) obesity due to excess calories ([facility]) Body mass index (BMI) 50.0-59.9, [place] [place] 3b chronic kidney disease (CKD) [place]) Obesity, morbid, BMI 50 or higher ([facility]) Medicare annual wellness visit, subsequent- Primary 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, without long-term current use of insulin ([facility]) Primary insomnia Persistent disorder of initiating or maintaining sleep Shortness of breath- Primary Fibromyalgia Unspecified myalgia and myositis documented in this encounter [facility]* Diagnosis Type 2 diabetes mellitus with microalbuminuria, without long-term current use of insulin ([facility])- Primary Lymphedema Other noninfectious lymphedema Type 2 diabetes mellitus with polyneuropathy ([facility]) Type II or unspecified type diabetes mellitus with neurological manifestations, not stated as uncontrolled Spondylosis of 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 Major depressive disorder, recurrent episode, mild (HCC) ([facility]) Major depressive disorder, recurrent episode, mild Generalized anxiety disorder ([facility] Generalized anxiety disorder Primary insomnia Persistent disorder of initiating or maintaining sleep Type 2 diabetes mellitus with diabetic chronic kidney disease (HCC) ([facility]) Chronic kidney disease, stage 3a (HCC) ([facility]) Morbid (severe) obesity due to excess calories ([facility]) Body mass index (BMI) 50.0-59.9, adult ([facility] [facility] Stage 3b chronic kidney disease (CKD) ([facility]) Obesity, morbid, BMI 50 or higher ([facility]) documented in this encounter [facility]* Diagnosis Dermatophytosis of nail- Primary Dystrophic nail Other specified disease of nail Diabetic polyneuropathy associated with type 2 diabetes mellitus ([facility]) Chronic venous insufficiency Unspecified venous (peripheral) insufficiency documented in this encounter [facility]* Diagnosis Primary insomnia- Primary Persistent disorder of initiating or maintaining sleep ETIENNE (obstructive sleep apnea) Obstructive sleep apnea (adult) (pediatric) Hypoxia Hypoxemia Sleep disturbance Unspecified sleep disturbance Hypersomnia Hypersomnia, unspecified Snoring Other dyspnea and respiratory abnormality documented in this encounter [facility]* Diagnosis Spondylosis of 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 documented in this encounter [facility]* Diagnosis Type 2 diabetes mellitus with microalbuminuria, without long-term current use of insulin ([facility])- Primary Major depressive disorder, recurrent episode, mild (HCC) ([facility]) Major depressive disorder, recurrent episode, mild Generalized anxiety disorder ([facility]) Generalized anxiety disorder Spondylosis of 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 Cervical spondylosis without myelopathy Primary insomnia Persistent disorder of initiating or maintaining sleep Restless legs Restless legs syndrome (RLS) Generalized edema Edema Gastroesophageal reflux disease without esophagitis Esophageal reflux Bilateral primary osteoarthritis of knee Post-operative hypothyroidism ([facility]) 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, without long-term current use of insulin ([facility])- Primary Type 2 diabetes mellitus with polyneuropathy ([facility]) Type II or unspecified type diabetes mellitus with neurological manifestations, not stated as uncontrolled Spondylosis of 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 Cervical spondylosis without myelopathy Major depressive disorder, recurrent episode, mild (HCC) ([facility]) Major depressive disorder, recurrent episode, mild Generalized anxiety disorder ([facility]) Generalized anxiety disorder Primary insomnia Persistent disorder of initiating or maintaining sleep Obstructive sleep apnea (adult) (pediatric) Generalized edema Edema Gastroesophageal reflux disease without esophagitis Esophageal reflux Bilateral primary osteoarthritis of knee Type 2 diabetes mellitus with microalbuminuria, without long-term current use of insulin ([facility])- Primary Type 2 diabetes mellitus with polyneuropathy ([facility]) Type II or unspecified type diabetes mellitus with neurological manifestations, not stated as uncontrolled Spondylosis of 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 Cervical spondylosis without myelopathy Major depressive disorder, recurrent episode, mild (HCC) ([facility]) Major depressive disorder, recurrent episode, mild Generalized anxiety disorder ([facility]) Generalized anxiety disorder Primary insomnia Persistent disorder of initiating or maintaining sleep Generalized edema Edema Gastroesophageal reflux disease without esophagitis Esophageal reflux Type 2 diabetes mellitus with diabetic chronic kidney disease ([facility]) Chronic kidney disease, stage 3b (HCC) ([facility]) Morbid (severe) obesity due to excess calories ([facility]) Body mass index (BMI) 60.0-69.9, adult ([facility]) Type 2 diabetes mellitus with microalbuminuria, without long-term current use of insulin ([facility])- Primary Lymphedema Other noninfectious lymphedema Type 2 diabetes mellitus with polyneuropathy ([facility]) Type II or unspecified type diabetes mellitus with neurological manifestations, not stated as uncontrolled Spondylosis of 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 Major depressive disorder, recurrent episode, mild (HCC) ([facility]) Major depressive disorder, recurrent episode, mild Generalized anxiety disorder ([facility]) Generalized anxiety disorder Primary insomnia Persistent disorder of initiating or maintaining sleep Type 2 diabetes mellitus with diabetic chronic kidney disease ([facility]) Chronic kidney disease, stage 3a (HCC) ([facility]) Morbid (severe) obesity due to excess calories ([facility]) Body mass index (BMI) 50.0-59.9, adult ([facility]) Stage 3b chronic kidney disease (CKD) ([facility]) Obesity, morbid, BMI 50 or higher ([facility]) Medicare annual wellness visit, subsequent- Primary 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, without long-term current use of insulin ([facility]) Primary insomnia Persistent disorder of initiating or maintaining sleep Shortness of breath Fibromyalgia Unspecified myalgia and myositis documented in this encounter [facility]* Diagnosis Type 2 diabetes mellitus with microalbuminuria, without long-term current use of insulin ([facility])- Primary Major depressive disorder, recurrent episode, mild (HCC) ([facility]/HCC) Major depressive disorder, recurrent episode, mild Generalized anxiety disorder (CMS/HCC) Generalized anxiety disorder Spondylosis of 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 Cervical spondylosis without myelopathy Primary insomnia Persistent disorder of initiating or maintaining sleep Restless legs Restless legs syndrome (RLS) Generalized edema Edema Gastroesophageal reflux disease without esophagitis Esophageal reflux Bilateral primary osteoarthritis of knee Post-operative hypothyroidism ([facility]) 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, without long-term current use of insulin ([facility])- Primary Type 2 diabetes mellitus with polyneuropathy ([facility]) Type II or unspecified type diabetes mellitus with neurological manifestations, not stated as uncontrolled Spondylosis of 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 Cervical spondylosis without myelopathy Major depressive disorder, recurrent episode, mild (HCC) ([facility]) Major depressive disorder, recurrent episode, mild Generalized anxiety disorder ([facility]) Generalized anxiety disorder Primary insomnia Persistent disorder of initiating or maintaining sleep Obstructive sleep apnea (adult) (pediatric) Generalized edema Edema Gastroesophageal reflux disease without esophagitis Esophageal reflux Bilateral primary osteoarthritis of knee Type 2 diabetes mellitus with microalbuminuria, without long-term current use of insulin ([facility])- Primary Type 2 diabetes mellitus with polyneuropathy ([facility]) Type II or unspecified type diabetes mellitus with neurological manifestations, not stated as uncontrolled Spondylosis of 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 Cervical spondylosis without myelopathy Major depressive disorder, recurrent episode, mild (HCC) ([facility]) Major depressive disorder, recurrent episode, mild Generalized anxiety disorder ([facility]) Generalized anxiety disorder Primary insomnia Persistent disorder of initiating or maintaining sleep Generalized edema Edema Gastroesophageal reflux disease without esophagitis Esophageal reflux Type 2 diabetes mellitus with diabetic chronic kidney disease ([facility]) Chronic kidney disease, stage 3b (HCC) ([facility]) Morbid (severe) obesity due to excess calories ([facility]) Body mass index (BMI) 60.0-69.9, adult ([facility]) Type 2 diabetes mellitus with microalbuminuria, without long-term current use of insulin ([facility])- Primary Lymphedema Other noninfectious lymphedema Type 2 diabetes mellitus with polyneuropathy ([facility]/HCC) Type II or unspecified type diabetes mellitus with neurological manifestations, not stated as uncontrolled Spondylosis of 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 Major depressive disorder, recurrent episode, mild (HCC) ([facility]) Major depressive disorder, recurrent episode, mild Generalized anxiety disorder (CMS/HCC) Generalized anxiety disorder Primary insomnia Persistent disorder of initiating or maintaining sleep Type 2 diabetes mellitus with diabetic chronic kidney disease ([facility]) Chronic kidney disease, stage 3a (HCC) ([facility]) Morbid (severe) obesity due to excess calories ([facility]) Body mass index (BMI) 50.0-59.9, adult ([facility]) Stage 3b chronic kidney disease (CKD) ([facility]) Obesity, morbid, BMI 50 or higher ([facility]) Medicare annual wellness visit, subsequent- Primary 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, without long-term current use of insulin ([facility]) Primary insomnia Persistent disorder of initiating or maintaining sleep Type 2 diabetes mellitus with microalbuminuria, without long-term current use of insulin ([facility])- Primary Spondylosis of 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 Major depressive disorder, recurrent episode, mild (HCC) ([facility]) Major depressive disorder, recurrent episode, mild Generalized anxiety disorder ([facility]) Generalized anxiety disorder Primary insomnia Persistent disorder of initiating or maintaining sleep Type 2 diabetes mellitus with polyneuropathy ([facility]) Type II or unspecified type diabetes mellitus with neurological manifestations, not stated as uncontrolled Lymphedema Other noninfectious lymphedema Acute non-recurrent pansinusitis Class 3 severe obesity due to excess calories with serious comorbidity and body mass index (BMI) of 50.0 to 59.9 in adult ([facility]) Stage 3b chronic kidney disease (CKD) ([facility]) Type 2 diabetes mellitus with diabetic chronic kidney disease ([facility]) documented in this encounter [facility]* Diagnosis Type 2 diabetes mellitus with microalbuminuria, without long-term current use of insulin ([facility])- Primary Major depressive disorder, recurrent episode, mild (HCC) ([facility]) Major depressive disorder, recurrent episode, mild Generalized anxiety disorder ([facility]) Generalized anxiety disorder Spondylosis of 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 Cervical spondylosis without myelopathy Primary insomnia Persistent disorder of initiating or maintaining sleep Restless legs Restless legs syndrome (RLS) Generalized edema Edema Gastroesophageal reflux disease without esophagitis Esophageal reflux Bilateral primary osteoarthritis of knee Post-operative hypothyroidism ([facility]/HCC) 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, without long-term current use of insulin ([facility])- Primary Type 2 diabetes mellitus with polyneuropathy ([facility]) Type II or unspecified type diabetes mellitus with neurological manifestations, not stated as uncontrolled Spondylosis of 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 Cervical spondylosis without myelopathy Major depressive disorder, recurrent episode, mild (HCC) ([facility]/HCC) Major depressive disorder, recurrent episode, mild Generalized anxiety disorder ([facility]) Generalized anxiety disorder Primary insomnia Persistent disorder of initiating or maintaining sleep Obstructive sleep apnea (adult) (pediatric) Generalized edema Edema Gastroesophageal reflux disease without esophagitis Esophageal reflux Bilateral primary osteoarthritis of knee Type 2 diabetes mellitus with microalbuminuria, without long-term current use of insulin ([facility])- Primary Type 2 diabetes mellitus with polyneuropathy ([facility]) Type II or unspecified type diabetes mellitus with neurological manifestations, not stated as uncontrolled Spondylosis of 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 Cervical spondylosis without myelopathy Major depressive disorder, recurrent episode, mild (HCC) ([facility]) Major depressive disorder, recurrent episode, mild Generalized anxiety disorder ([facility]) Generalized anxiety disorder Primary insomnia Persistent disorder of initiating or maintaining sleep Generalized edema Edema Gastroesophageal reflux disease without esophagitis Esophageal reflux Type 2 diabetes mellitus with diabetic chronic kidney disease ([facility]/HCC) Chronic kidney disease, stage 3b (HCC) ([facility]) Morbid (severe) obesity due to excess calories ([facility]) Body mass index (BMI) 60.0-69.9, adult ([facility]) Type 2 diabetes mellitus with microalbuminuria, without long-term current use of insulin ([facility])- Primary Lymphedema Other noninfectious lymphedema Type 2 diabetes mellitus with polyneuropathy ([facility]) Type II or unspecified type diabetes mellitus with neurological manifestations, not stated as uncontrolled Spondylosis of 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 Major depressive disorder, recurrent episode, mild (HCC) ([facility]) Major depressive disorder, recurrent episode, mild Generalized anxiety disorder ([facility]) Generalized anxiety disorder Primary insomnia Persistent disorder of initiating or maintaining sleep Type 2 diabetes mellitus with diabetic chronic kidney disease ([facility]/HCC) Chronic kidney disease, [place] 3a (HCC) [place] Morbid (severe) obesity due to excess calories ([facility]) Body mass index (BMI) 50.0-59.9, adult [place] Stage 3b chronic kidney disease (CKD) ([facility]) Obesity, morbid, BMI 50 or higher [place] annual wellness visit, subsequent- Primary 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, without long-term current use of insulin ([facility]) Primary insomnia Persistent disorder of initiating or maintaining sleep Type 2 diabetes mellitus with microalbuminuria, without long-term current use of insulin ([facility])- Primary Spondylosis of 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 Major depressive disorder, recurrent episode, mild ([facility]) [place] Major depressive disorder, recurrent episode, mild Generalized anxiety disorder [place] Generalized anxiety disorder Primary insomnia Persistent disorder of initiating or maintaining sleep Type 2 diabetes mellitus with polyneuropathy [place] Type II or unspecified type diabetes mellitus with neurological manifestations, not stated as uncontrolled Lymphedema Other noninfectious lymphedema Acute non-recurrent pansinusitis Class 3 severe obesity due to excess calories with serious comorbidity and body mass index (BMI) of 50.0 to 59.9 in adult [place] Stage 3b chronic kidney disease (CKD) [place] Type 2 diabetes mellitus with diabetic chronic kidney disease ([facility]) Dermatophytosis of nail- Primary Dystrophic nail Other specified disease of nail Diabetic polyneuropathy associated with type 2 diabetes mellitus ([facility]) Type II diabetes mellitus with peripheral circulatory disorder [place] Type II or unspecified type diabetes mellitus with peripheral circulatory disorders, not stated as uncontrolled Chronic venous insufficiency Unspecified venous (peripheral) insufficiency documented in this encounter [facility] Purpose Family History No Family History Records FoundNo Family History Records FoundNo Family History Records FoundNo Family History Records Found Advance Directives No Advanced Directives Records FoundNo Advanced Directives Records FoundNo Advanced Directives Records FoundNo Advanced Directives Records Found Additional Source Comments INFORMATION SOURCE (unrecogn ized section and content) DATE CREATED AUTHOR 09/25/2021 [facility] DATE CREATED AUTHOR AUTHOR'S ORGANIZ ATION 07/19/2022 [facility] DATE CREATED AUTHOR AUTHOR'S ORGANIZ ATION 09/06/2024 [facility] DATE CREATED AUTHOR AUTHOR'S ORGANIZ ATION 10/11/2024 [facility] EPIC Care Teams (unrecognized sec tion and content) Web Production Manager Relationship Specialty Start Date End Date Ovidio Bills MD [address] [place] [phone] PCP - General Family Medicine 11/04/23 Web Production Manager Relationship Specialty Start Date End Date Ovidio Bills MD [address] [place] [phone] PCP - General Family Medicine 11/04/23 Web Production Manager Relationship Specialty Start Date End Date Ovidio Bills MD [address] [place] [phone] PCP - General Family Medicine 11/04/23 Web Production Manager Relationship Specialty Start Date End Date Ovidio Bills MD [address] [place] [phone] PCP - General Family Medicine 11/04/23 Web Production Manager Relationship Specialty Start Date End Date Ovidio Bills MD [address] [place] [phone] PCP - General Family Medicine 11/04/23 Web Production Manager Relationship Specialty Start Date End Date Ovidio Bills MD [address] [place] [phone] PCP - General Family Medicine 11/04/23 Web Production Manager Relationship Specialty Start Date End Date Ovidio Bills MD [address] [place] [phone] PCP - General Family Medicine 11/04/23 Web Production Manager Relationship Specialty Start Date End Date Ovidio Bills MD [address] [place] [address] PCP - General Family Medicine 11/04/23 Web Production Manager Relationship Specialty Start Date End Date Ovidio Bills MD [address] [place] [address] PCP - General Family Medicine 11/04/23 Web Production Manager Relationship Specialty Start Date End Date Ovidio Bills MD [address] [place] [address] PCP - General Family Medicine 11/04/23 Web Production Manager Relationship Specialty Start Date End Date Ovidio Bills MD [address] [place] [address] PCP - General Family Medicine 11/04/23 Web Production Manager Relationship Specialty Start Date End Date Ovidio Bills MD [address] [place] [address] PCP - General Family Medicine 11/04/23 Web Production Manager Relationship Specialty Start Date End Date Ovidio Bills MD [address] [place] [address] PCP - General Family Medicine 11/04/23 Web Production Manager Relationship Specialty Start Date End Date Ovidio Bills MD [address] [place] [address] PCP - General Family Medicine 11/04/23 Web Production Manager Relationship Specialty Start Date End Date Ovidio Bills MD [address] [place] [phone] PCP - General Family Medicine 11/04/23 Web Production Manager Relationship Specialty Start Date End Date Ovidio Bills MD [address] [place] [phone] PCP - General Family Medicine 11/04/23 Web Production Manager Relationship Specialty Start Date End Date Ovidio Bills MD [address] [place] [phone] PCP - General Family Medicine 11/04/23 Web Production Manager Relationship Specialty Start Date End Date Ovidio Bills MD [address] [place] [phone] PCP - General Family Medicine 11/04/23 Reason for Visit (unrecogniz ed section and content) Reason Comments Medicare Annual Wellness Visit Subsequen t wellness Reason Onset Date Comments Med Refill 06/28/2024 Reason Comments Pain Reason Onset Date Comments Med Refill 07/26/2024 Reason Comments Insomnia Sleep Apnea Reason Onset Date Comments Med Refill 08/23/2024 Reason Comments Follow-up Er follow up Reason Comments DM Foot Care Kingelsa Saroj Rayo is a 74y.o. female who presents for Diabetic nail care. Dr. Bills 04/29/2024 BS 128 A1C 6.5 Reason Comments Insomnia Reason Onset Date Comments Med Refill 06/06/2024 Reason Onset Date Comments Med Refill 08/25/2024 Reason Comments Follow-up 3 m Sinusitis Has dizziness as wel l Reason Comments DM Foot Care Kingelsa Rayo is a 74y.o. female who presents for Diabetic nail care. Dr. Bills 09/19/2024 BS 128 A1C 6.3 (08/30) FOR RECORDS PERTAINING TO PATIENTS WHO ARE OR HAVE BEEN ENROLLED IN A CHEMICAL DEPENDENCY/SUBSTANCEABUSE PROGRAM, SOME INFORMATION MAY BE OMITTED. This clinical summary was aggregated from multiple sources. Caution should be exercised in using it in the provision of clinical care. This summary normalizes information from multiple sources, and as a consequence, information in this document may materially change the coding, format and clinical context of patient data. In addition, data may be omitted in some cases. CLINICAL DECISIONS SHOULD BE BASED ON THE PRIMARY CLINICAL RECORDS. [facility]. provides no warranty or guarantee of the accuracy or completeness of information in this document.
--- NOTE | 2024-11-08 11:53 | ECG_ITS ---
[facility] Test Date: 2024-11-08 Pat Name: ALIVIA YEBOAH Department: Room: - Gender: Female Online Program Coordinator: : 1950 Requested By: 0919 Order Number: [id number] Reading MD: VERITO SIDDIQUI M.D. Measurements Intervals [place] Rate: 92 P: 60 CO: 248 QRS: -67 QRSD: 132 T: 41 QT: 374 QTc: 424 Interpretive Statements 1100 Sinus rhythm 2231 First degree AV block 2450 Right bundle branch block 2630 Left anterior fascicular block 9150 abnormal ECG Compared to ECG 06/13/2021 17:20:48 First degree AV block now present Sinus tachycardia no longer present Electronically Signed On 11-08-2024 13:06:43 EST by VERITO SIDDIQUI M.D.
--- NOTE | 2024-11-08 11:55 | ED_ITS ---
HPI HPI - General Adult General Chief complaint: Nausea/Vomiting/Diarrhea Stated complaint: WEAKNESS Time Seen by Provider: 11/08/24 11:53 Source: patient and medical record Mode of arrival: ambulance Limitations: no limitations History of Present Illness HPI narrative: Patient is a 74-year-old female who is presenting by EMS with chief complaint of nausea, vomiting, after taking a gummy All systems are negative except as noted/marked. All systems reviewed and otherwise negative. Nurses note and vital signs reviewed and patient is not hypoxic. General: The patient appears well and in no apparent distress. Patient is resting comfortably on cart. Patient is not toxic, lethargic, or listless Skin: Warm, dry, no pallor noted. There is no rash noted. No petechiae, purpura. Head: Normocephalic, atraumatic Eye: Normal conjunctiva, no drainage, EOMI. PERRL Ears, Nose, Mouth, and Throat: oral mucosa is moist. Nares patent. Mouth without vesicles. Cardiovascular: Regular Rate and Rhythm, no murmur, gallop, rub Respiratory: Patient is in no distress, no accessory muscle use, lungs are clear to auscultation, no wheezing, rales or rhonchi Back: non-tender, no CVA tenderness bilaterally to percussion. No CT LS midline pain GI: no tenderness to palpation, no masses appreciated. No rebound, guarding, or rigidity noted. No distention Musculoskeletal: Patient has full range of motion of all of the extremities, no motor, sensory, or focal neurological deficits Neurological: A&O x4, normal speech Psychiatric: Cooperative Related Data Allergies Allergy/AdvReac Type Severity Reaction Status Date / Time sertraline (From Zoloft) AdvReac Severe Confusion Verified 11/08/24 11:30 Tetanus Vaccines and Toxoid AdvReac Intermediate swollen arm Verified 11/08/24 11:30 metformin AdvReac Mild Abdominal Verified 11/08/24 11:30 Pain Opioid HPI Opioid Management Most Recent Opioid Data: No Data to Display PFSH PFSH Social History Little interest or pleasure in doing things: not at all Feeling down, depressed, or hopeless: not at all Exam Constitutional Vital Signs, click to edit/add: Last Vital Signs Temp 98.2 F 11/08/24 11:30 Pulse 91 H 11/08/24 11:30 Resp 18 11/08/24 11:30 BP 129/55 11/08/24 11:30 Pulse Ox 97 11/08/24 11:30 O2 Del Method Room Air 11/08/24 11:30 Course Vital Signs Vital signs: Vital Signs Temperature 98.2 F 11/08/24 11:30 Pulse Rate 91 H 11/08/24 11:30 Respiratory Rate 18 11/08/24 11:30 Blood Pressure 129/55 11/08/24 11:30 Pulse Oximetry 97 11/08/24 11:30 Oxygen Delivery Method Room Air 11/08/24 11:30 Temperature 98.2 F 11/08/24 11:30 Pulse Rate 91 H 11/08/24 11:30 Respiratory Rate 18 11/08/24 11:30 Blood Pressure 129/55 11/08/24 11:30 Pulse Oximetry 97 11/08/24 11:30 Oxygen Delivery Method Room Air 11/08/24 11:30 Discharge Plan Discharge Chief Complaint: Nausea/Vomiting/Diarrhea Print Language: Trinidadian Referrals: Lilly Figueroa DO [Primary Care Provider] - 1 week
[2024-11-08] MEDS: PROCHLORPERAZINE 10 MG/2 ML VIAL IV (12:17)
[2024-11-08] MEDS: ONDANSETRON PF 4 MG/2 ML VIAL IV (12:17)
[2024-11-08] MEDS: 0.9 % SODIUM CHLORIDE 500 ML IV (12:17)
[2024-11-08 12:18] LABS: pH VBG 7.346 (7.330-7.430)
[2024-11-08 12:19] LABS: PCO2 VBG 56.2 mmHg (40.0-52.0)
[2024-11-08 12:32] LABS: Alanine Aminotransferase 21 U/L (14-59); Albumin Level 3.6 g/dL (3.4-5.0); Alkaline Phosphatase 150 U/L (46-116); Anion Gap 10.9; Aspartate Amino Transferase 19 U/L (15-37); Basophils Percent Auto 0.5 % (0.2-2.0); Bilirubin Total 0.5 mg/dL (0.2-1.0); Calcium 8.5 mg/dL (8.5-10.1); Chloride 103 mmol/L (98-107); Eosinophils Absolute Auto 0.2 10^3/uL (0.0-0.7); Eosinophils Percent Auto 3.9 % (0.9-7.0); Estimated GFR (African America 36 (>=60 mL/min/1.73m^2); Estimated GFR (Non-African Ame 30 (>=60 mL/min/1.73m^2); Globulin 3.7 g/dL; Glucose 151 mg/dL (74-106); Hematocrit 46.8 % (36.0-48.0); Immature Granulocytes Abs Auto 0.02 10^3/uL (0.00-0.03); Immature Granulocytes Pct Auto 0.3 % (0.0-0.5); Lymphocytes Percent Auto 16.2 % (20.5-60.0); Mean Corpuscular HGB Conc 29.9 g/dL (29.9-35.2); Mean Corpuscular Hemoglobin 24.7 pg (26.7-34.0); Mean Corpuscular Volume 82.7 fL (81.0-99.0); Mean Platelet Volume 12.1 fL (9.5-13.5); Monocytes Absolute Auto 0.3 10^3/uL (0.3-0.8); Monocytes Percent Auto 5.6 % (1.7-12.0); Neutrophils Absolute Auto 4.5 10^3/uL (1.4-6.5); Neutrophils Percent Auto 73.5 % (43.0-75.0); Platelet Count 130 10^3/uL (150-450); Potassium 3.9 mmol/L (3.5-5.1); Red Blood Count 5.66 10^6/uL (4.20-5.40); Red Cell Distribution Width 17.8 % (11.0-15.0); Sodium 142 mmol/L (136-145); Total Protein 7.3 g/dL (6.4-8.2); White Blood Count 6.1 10^3/uL (4.0-11.0)
[2024-11-08 12:40] LABS: Troponin I High Sensitivity 8.4 pg/mL (4.0-51.3)
--- NOTE | 2024-11-08 13:28 | ED.GENADUL1 ---
Documented by User: LISA Gary 11/08/24 14:40 HPI HPI - General Adult General Chief complaint: Nausea/Vomiting/Diarrhea Stated complaint: WEAKNESS Time Seen by Provider: 11/08/24 11:53 Source: patient and medical record Mode of arrival: ambulance Limitations: no limitations History of Present Illness HPI narrative: Patient is a 74-year-old female brought to the emergency department by ambulance for dizziness and nausea and vomiting after taking a gummy that her friend gave her. She states that she typically takes THC Gummies from a retailer, she uses these to treat her arthritis. She states that she ran out and could not get back to the retailer to get more Gummies so she took a gummy from her friend to tide her over . She states after she took the gummy, she felt dizzy with nausea and vomiting. She was given IV fluids, Compazine and Zofran. She states she feels much better at time of my evaluation. She denies chest pain, abdominal pain, diarrhea or urinary symptoms. She apparently uses an electric wheelchair for mobility, she does not walk. No falls or syncope. Related Data Home Medications ?Medication ?Instructions ?Recorded ?Confirmed apixaban 5 mg tablet (Eliquis) 5 mg PO BID 11/08/24 11/08/24 atorvastatin 40 mg tablet 40 mg PO .QHS 11/08/24 11/08/24 blood sugar diagnostic (True 11/08/24 11/08/24 Metrix Glucose Test Strip) blood-glucose meter (Prodigy 11/08/24 11/08/24 Autocode Meter kit) bumetanide 2 mg tablet 2 mg PO DAILY 11/08/24 11/08/24 calcitriol 0.25 mcg capsule 0.25 mcg PO DAILY 11/08/24 11/08/24 cholecalciferol (vitamin D3) 1,250 1,250 mcg PO .QMONTH 11/08/24 11/08/24 mcg (50,000 unit) capsule doxepin 10 mg capsule 20 mg PO .QHS 11/08/24 11/08/24 hydrocodone 5 mg-acetaminophen 325 1 tab PO QID PRN pain 11/08/24 11/08/24 mg tablet lancets 28 gauge (Prodigy Twist 11/08/24 11/08/24 Top Lancet) levothyroxine 300 mcg tablet 300 mcg PO .ACB 11/08/24 11/08/24 liothyronine 5 mcg tablet 5 mcg PO DAILY 11/08/24 11/08/24 mirtazapine 15 mg tablet 15 mg PO .Q 11/08/24 11/08/24 nitrofurantoin 100 mg PO DAILY 11/08/24 11/08/24 monohydrate/macrocrystals 100 mg capsule omeprazole 40 mg capsule,delayed 40 mg PO .[facility] 11/08/24 11/08/24 release paroxetine HCl 20 mg tablet 20 mg PO .Q 11/08/24 11/08/24 quetiapine 50 mg tablet 50 mg PO .Q 11/08/24 11/08/24 ropinirole 5 mg tablet 5 mg PO TID 11/08/24 11/08/24 semaglutide 1 mg/dose (4 mg/3 mL) 1 mg subcut QWEEK 11/08/24 11/08/24 subcutaneous pen injector (Ozempic) tizanidine 4 mg tablet 4 mg PO TID PRN muscle spasticity 11/08/24 11/08/24 Previous Rx's ?Medication ?Instructions ?Recorded cephalexin 500 mg capsule 500 mg PO Q8H 7 days #21 caps 11/08/24 meclizine 25 mg chewable tablet 25 mg PO QID PRN dizziness #12 tabs 11/08/24 (Antivert) ondansetron 4 mg disintegrating 4 mg PO Q6H PRN nausea and 11/08/24 tablet vomiting #12 tabs Allergies Allergy/AdvReac Type Severity Reaction Status Date / Time sertraline (From Zoloft) AdvReac Severe Confusion Verified 11/08/24 11:30 Tetanus Vaccines and Toxoid AdvReac Intermediate swollen arm Verified 11/08/24 11:30 metformin AdvReac Mild Abdominal Verified 11/08/24 11:30 Pain Opioid HPI Opioid Management Most Recent Opioid Data: Last Pain Assessment 11/08/24 20:00 Review of Systems ROS Constitutional Denies: fever or chills Ears, nose, mouth, and throat Denies: throat pain Cardiovascular Denies: chest pain Respiratory Denies: shortness of breath Gastrointestinal Reports: nausea and vomiting; Denies: abdominal pain Integumentary/Breast Denies: rash Neurological Reports: dizziness; Denies: numbness in extremities or weakness in extremities Hematologic/Lymphatic Denies: easy bruising or easy bleeding [facility] Medical History (Updated 11/08/24 @ 16:13 by Gena Crocker RN) Arthritis ?M19.90 - Unspecified osteoarthritis, unspecified site (ICD-10) Hypothyroid ?E03.9 - Hypothyroidism, unspecified (ICD-10) GERD (gastroesophageal reflux disease) ?K21.9 - Gastro-esophageal reflux disease without esophagitis (ICD-10) Diabetes mellitus ?E11.9 - Type 2 diabetes mellitus without complications (ICD-10) Restless leg syndrome ?G25.81 - Restless legs syndrome (ICD-10) TIA (transient ischemic attack) ?G45.9 - Transient cerebral ischemic attack, unspecified (ICD-10) Social History Little interest or pleasure in doing things: not at all Feeling down, depressed, or hopeless: not at all Exam Narrative Exam Narrative: Gen.: Awake, alert, in no distress Head: Normocephalic, atraumatic ENT: Moist mucous membranes Respiratory: No respiratory distress, lungs clear bilaterally Cardio: Regular rate and rhythm Gastrointestinal: Abdomen is soft, nondistended and nontender to palpation Extremities: Moves extremities equally Psych: Normal mood and affect Neuro: No focal neuro deficit Skin: Warm, dry, intact Constitutional Vital Signs, click to edit/add: Last Vital Signs Temp 98.2 F 11/08/24 11:30 Pulse 89 11/08/24 19:30 Resp 23 H 11/08/24 19:30 BP 134/75 11/08/24 15:01 Pulse Ox 94 L 11/08/24 15:30 O2 Del Method Nasal Cannula 11/08/24 14:41 O2 Flow Rate 2 11/08/24 14:41 Course Vital Signs Vital signs: Vital Signs Temperature 98.2 F 11/08/24 11:30 Pulse Rate 91 H 11/08/24 11:30 Respiratory Rate 18 11/08/24 11:30 Blood Pressure 129/55 11/08/24 11:30 Pulse Oximetry 97 11/08/24 11:30 Oxygen Delivery Method Room Air 11/08/24 11:30 Temperature 98.2 F 11/08/24 11:30 Pulse Rate 89 03/04/25 19:30 Respiratory Rate 23 H 11/08/24 19:30 Blood Pressure 134/75 11/08/24 15:01 Pulse Oximetry 94 L 11/08/24 15:30 Oxygen Delivery Method Nasal Cannula 11/08/24 14:41 Oxygen Delivery Flow Rate 2 11/08/24 14:41 Medical Decision Making MDM Narrative Medical decision making narrative: Patient was hypoxic at time of EMS arrival so she was placed on a nasal cannula which was continued in the emergency department. Patient states she was feeling much better after medications and fluids. She has no complaints of chest pain, abdominal pain. She was able to transfer to the bedside commode and give a urine specimen which shows a mild UTI. We did take the patient off of the oxygen by nasal cannula and she was found to have multiple episodes of hypoxia, however she is resting comfortably in no distress and able to speak easily on reevaluation. It was recommended based on the hypoxia that the patient continued to have in the emergency department that she be admitted for treatment of UTI and the hypoxia on oxygen. 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 She does not want to stay in the hospital. She understands the risks of and disability by leaving the hospital AGAINST MEDICAL ADVICE with hypoxia. She states she has a CPAP at home as well as a home health aide that checks on her, however she refuses to wear home oxygen. She signed out AGAINST MEDICAL ADVICE, she understands she can return to the emergency department at any time. She is grateful for care. She is placed on Keflex, Zofran for home. Antivert given for dizziness as needed. Return to the ER if symptoms change or worsen 1436: Patient was planning to sign out AGAINST MEDICAL ADVICE but on attempting to get into her electric wheelchair to go home, she stated that she felt she could not manage at home and would like to be admitted at this time. IV Rocephin ordered for coverage of her urinary tract infection and she was placed back on oxygen on a nasal cannula. She will be admitted to the hospitalist for further evaluation and treatment. SHARED APC VISIT, PHYSICIAN ATTESTATION: [id number] I performed a substantive part of the MDM during the patient?s E/M visit. I personally evaluated and examined the patient. I personally made or approved the documented management plan and acknowledge its risk of complications..? Medical Records Medical records reviewed: Yes I reviewed the patient's medical records Lab Data Lab results reviewed: Yes I reviewed the patient's lab results Labs: Lab Results 11/08/24 11/08/24 Range/Units 12:05 13:35 WBC 6.1 (4.0-11.0) 10^3/uL RBC 5.66 H (4.20-5.40) 10^6/uL Hgb 14.0 (12.0-16.0) g/dL Hct 46.8 (36.0-48.0) % MCV 82.7 (81.0-99.0) fL MCH 24.7 L (26.7-34.0) pg MCHC 29.9 (29.9-35.2) g/dL RDW 17.8 H (11.0-15.0) % Plt Count 130 L (150-450) 10^3/uL MPV 12.1 (9.5-13.5) fL Neut % (Auto) 73.5 (43.0-75.0) % Lymph % (Auto) 16.2 L (20.5-60.0) % Isabella % (Auto) 5.6 (1.7-12.0) % Eos % (Auto) 3.9 (0.9-7.0) % Baso % (Auto) 0.5 (0.2-2.0) % Neut # (Auto) 4.5 (1.4-6.5) 10^3/uL Lymph # (Auto) 1.0 L (1.2-3.8) 10^3/uL Isabella # (Auto) 0.3 (0.3-0.8) 10^3/uL Eos # (Auto) 0.2 (0.0-0.7) 10^3/uL Baso # (Auto) 0.0 (0.0-0.1) 10^3/uL Abs Immat Gran (auto) 0.02 (0.00-0.03) 10^3/uL Imm/Tot Granulo (auto) 0.3 (0.0-0.5) % VBG pH 7.346 (7.330-7.430) VBG pCO2 56.2 H (40.0-52.0) mmHg Sodium 142 (136-145) mmol/L Potassium 3.9 (3.5-5.1) mmol/L Chloride 103 (98-107) mmol/L Carbon Dioxide 32.0 (21.0-32.0) mmol/L Anion Gap 10.9 BUN 35.0 H (7.0-18.0) mg/dL Creatinine 1.67 H (0.55-1.02) mg/dL Est GFR ( Amer) 36 L (>=60 mL/min/1.73m^2) Est GFR (Non-Af Amer) 30 L (>=60 mL/min/1.73m^2) BUN/Creatinine Ratio 21.0 Glucose 151 H (74-106) mg/dL Calcium 8.5 (8.5-10.1) mg/dL Magnesium 2.0 (1.8-2.4) mg/dL Total Bilirubin 0.5 (0.2-1.0) mg/dL AST 19 (15-37) U/L ALT 21 (14-59) U/L Alkaline Phosphatase 150 H (46-116) U/L Troponin I High Sens 8.4 (4.0-51.3) pg/mL NT-Pro-B Natriuret Pep 203.0 (<=1800.0) pg/mL Total Protein 7.3 (6.4-8.2) g/dL Albumin 3.6 (3.4-5.0) g/dL Globulin 3.7 g/dL Albumin/Globulin Ratio 1.0 Urine Color Lt. yellow (YELLOW) Urine Clarity Clear (CLEAR) Urine pH 5.5 (5.0-9.0) Ur Specific Bicknell 1.020 (1.005-1.025) Urine Protein Negative (NEG/TRACE) mg/dL Urine Glucose (UA) Negative (NEGATIVE) mg/dL Urine Ketones Negative (NEGATIVE) mg/dL Urine Occult Blood Small A (NEGATIVE) Urine Nitrite Negative (NEGATIVE) Urine Bilirubin Negative (NEGATIVE) Urine Urobilinogen 0.2 (0.2-1.0) EU/dL Ur Leukocyte Esterase Small A (NEGATIVE) Urine RBC 2-5 A (0-2) #/HPF Urine WBC 5-10 A (NONE SEEN) #/HPF Ur Squamous Epith Cells Few A (NONE/RARE) #/LPF Urine Crystals None seen (None Seen) #/HPF Urine Bacteria Moderate A (NONE SEEN) #/HPF Urine Casts Seen A (NONE SEEN) #/LPF Hyaline Casts Few Urine Mucus Small A (NONE SEEN) Ur Culture Indicated? Yes-[facility] [place] Imaging Data Chest x-ray: Attestation: I have reviewed the pertinent imaging results. Radiologist's impression: Cardiomegaly, otherwise unremarkable chest examination ECG Data Attestation: I personally reviewed and interpreted this ECG as follows: (Normal sinus rhythm, rate of 89. No acute ST elevation or ectopy. EKG reviewed by attending physician) Discharge Plan Discharge Chief Complaint: Nausea/Vomiting/Diarrhea Clinical Impression: Dizziness, Nausea & vomiting, Acute UTI, Hypoxia Patient Disposition: Admitted as Observation Time of Disposition Decision: 14:21 Condition: Fair Discharge Date/Time: 11/08/24 19:50 Documented by User: Ousmane Ortiz MD 11/08/24 20:38 HPI HPI - General Adult General Chief complaint: Nausea/Vomiting/Diarrhea Stated complaint: WEAKNESS Time Seen by Provider: 11/08/24 11:53 Related Data Home Medications ?Medication ?Instructions ?Recorded ?Confirmed apixaban 5 mg tablet (Eliquis) 5 mg PO BID 11/08/24 11/08/24 atorvastatin 40 mg tablet 40 mg PO .QHS 11/08/24 11/08/24 blood sugar diagnostic (True 11/08/24 11/08/24 Metrix Glucose Test Strip) blood-glucose meter (Prodigy 11/08/24 11/08/24 Autocode Meter kit) bumetanide 2 mg tablet 2 mg PO DAILY 11/08/24 11/08/24 calcitriol 0.25 mcg capsule 0.25 mcg PO DAILY 11/08/24 11/08/24 cholecalciferol (vitamin D3) 1,250 1,250 mcg PO .QMONTH 11/08/24 11/08/24 mcg (50,000 unit) capsule doxepin 10 mg capsule 20 mg PO .QHS 11/08/24 11/08/24 hydrocodone 5 mg-acetaminophen 325 1 tab PO QID PRN pain 11/08/24 11/08/24 mg tablet lancets 28 gauge (Prodigy Twist 11/08/24 11/08/24 Top Lancet) levothyroxine 300 mcg tablet 300 mcg PO .ACB 11/08/24 11/08/24 liothyronine 5 mcg tablet 5 mcg PO DAILY 11/08/24 11/08/24 mirtazapine 15 mg tablet 15 mg PO .QHS 11/08/24 11/08/24 nitrofurantoin 100 mg PO DAILY 11/08/24 11/08/24 monohydrate/macrocrystals 100 mg capsule omeprazole 40 mg capsule,delayed 40 mg PO .ACB 11/08/24 11/08/24 release paroxetine HCl 20 mg tablet 20 mg PO .QHS 11/08/24 11/08/24 quetiapine 50 mg tablet 50 mg PO .QHS 11/08/24 11/08/24 ropinirole 5 mg tablet 5 mg PO TID 11/08/24 11/08/24 semaglutide 1 mg/dose (4 mg/3 mL) 1 mg subcut QWEEK 11/08/24 11/08/24 subcutaneous pen injector (Ozempic) tizanidine 4 mg tablet 4 mg PO TID PRN muscle spasticity 11/08/24 11/08/24 Previous Rx's ?Medication ?Instructions ?Recorded cephalexin 500 mg capsule 500 mg PO Q8H 7 days #21 caps 11/08/24 meclizine 25 mg chewable tablet 25 mg PO QID PRN dizziness #12 tabs 11/08/24 (Antivert) ondansetron 4 mg disintegrating 4 mg PO Q6H PRN nausea and 11/08/24 tablet vomiting #12 tabs Allergies Allergy/AdvReac Type Severity Reaction Status Date / Time sertraline (From Zoloft) AdvReac Severe Confusion Verified 11/08/24 11:30 Tetanus Vaccines and Toxoid AdvReac Intermediate swollen arm Verified 11/08/24 11:30 metformin AdvReac Mild Abdominal Verified 11/08/24 11:30 Pain Opioid HPI Opioid Management Most Recent Opioid Data: Last Pain Assessment 11/08/24 20:00 [facility] Medical History (Updated 11/08/24 @ 16:13 by Gena Crocker RN) Arthritis ?M19.90 - Unspecified osteoarthritis, unspecified site (ICD-10) Hypothyroid ?E03.9 - Hypothyroidism, unspecified (ICD-10) GERD (gastroesophageal reflux disease) ?K21.9 - Gastro-esophageal reflux disease without esophagitis (ICD-10) Diabetes mellitus ?E11.9 - Type 2 diabetes mellitus without complications (ICD-10) Restless leg syndrome ?G25.81 - Restless legs syndrome (ICD-10) TIA (transient ischemic attack) ?G45.9 - Transient cerebral ischemic attack, unspecified (ICD-10) Social History Little interest or pleasure in doing things: not at all Feeling down, depressed, or hopeless: not at all Exam Constitutional Vital Signs, click to edit/add: Last Vital Signs Temp 98.2 F 11/08/24 11:30 Pulse 89 11/08/24 19:30 Resp 23 H 11/08/24 19:30 BP 134/75 11/08/24 15:01 Pulse Ox 94 L 11/08/24 15:30 O2 Del Method Nasal Cannula 11/08/24 14:41 O2 Flow Rate 2 11/08/24 14:41 Course Vital Signs Vital signs: Vital Signs Temperature 98.2 F 11/08/24 11:30 Pulse Rate 91 H 11/08/24 11:30 Respiratory Rate 18 11/08/24 11:30 Blood Pressure 129/55 11/08/24 11:30 Pulse Oximetry 97 11/08/24 11:30 Oxygen Delivery Method Room Air 11/08/24 11:30 Temperature 98.2 F 11/08/24 11:30 Pulse Rate 89 11/08/24 19:30 Respiratory Rate 23 H 11/08/24 19:30 Blood Pressure 134/75 11/08/24 15:01 Pulse Oximetry 94 L 11/08/24 15:30 Oxygen Delivery Method Nasal Cannula 11/08/24 14:41 Oxygen Delivery Flow Rate 2 11/08/24 14:41 Medical Decision Making MDM Narrative Medical decision making narrative: Patient was hypoxic at time of EMS arrival so she was placed on a nasal cannula which was continued in the emergency department. Patient states she was feeling much better after medications and fluids. She has no complaints of chest pain, abdominal pain. She was able to transfer to the bedside commode and give a urine specimen which shows a mild UTI. We did take the patient off of the oxygen by nasal cannula and she was found to have multiple episodes of hypoxia, however she is resting comfortably in no distress and able to speak easily on reevaluation. It was recommended based on the hypoxia that the patient continued to have in the emergency department that she be admitted for treatment of UTI and the hypoxia on oxygen. 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 She does not want to stay in the hospital. She understands the risks of and disability by leaving the hospital AGAINST MEDICAL ADVICE with hypoxia. She states she has a CPAP at home as well as a home health aide that checks on her, however she refuses to wear home oxygen. She signed out AGAINST MEDICAL ADVICE, she understands she can return to the emergency department at any time. She is grateful for care. She is placed on Keflex, Zofran for home. Antivert given for dizziness as needed. Return to the ER if symptoms change or worsen 1436: Patient was planning to sign out AGAINST MEDICAL ADVICE but on attempting to get into her electric wheelchair to go home, she stated that she felt she could not manage at home and would like to be admitted at this time. IV Rocephin ordered for coverage of her urinary tract infection and she was placed back on oxygen on a nasal cannula. She will be admitted to the hospitalist for further evaluation and treatment. SHARED APC VISIT, PHYSICIAN ATTESTATION: [id number] I performed a substantive part of the MDM during the patient?s E/M visit. I personally evaluated and examined the patient. I personally made or approved the documented management plan and acknowledge its risk of complications..? I, Dr Ortiz, have reviewed the above progress note and course of action in the ER; agree with the above. I have personally gone over history and physical, and discussed disposition and treatment plan with the PA. Lab Data Labs: Lab Results 11/08/24 11/08/24 Range/Units 12:05 13:35 WBC 6.1 (4.0-11.0) 10^3/uL RBC 5.66 H (4.20-5.40) 10^6/uL Hgb 14.0 (12.0-16.0) g/dL Hct 46.8 (36.0-48.0) % MCV 82.7 (81.0-99.0) fL MCH 24.7 L (26.7-34.0) pg MCHC 29.9 (29.9-35.2) g/dL RDW 17.8 H (11.0-15.0) % Plt Count 130 L (150-450) 10^3/uL MPV 12.1 (9.5-13.5) fL Neut % (Auto) 73.5 (43.0-75.0) % Lymph % (Auto) 16.2 L (20.5-60.0) % Isabella % (Auto) 5.6 (1.7-12.0) % Eos % (Auto) 3.9 (0.9-7.0) % Baso % (Auto) 0.5 (0.2-2.0) % Neut # (Auto) 4.5 (1.4-6.5) 10^3/uL Lymph # (Auto) 1.0 L (1.2-3.8) 10^3/uL Isabella # (Auto) 0.3 (0.3-0.8) 10^3/uL Eos # (Auto) 0.2 (0.0-0.7) 10^3/uL Baso # (Auto) 0.0 (0.0-0.1) 10^3/uL Abs Immat Gran (auto) 0.02 (0.00-0.03) 10^3/uL Imm/Tot Granulo (auto) 0.3 (0.0-0.5) % VBG pH 7.346 (7.330-7.430) VBG pCO2 56.2 H (40.0-52.0) mmHg Sodium 142 (136-145) mmol/L Potassium 3.9 (3.5-5.1) mmol/L Chloride 103 (98-107) mmol/L Carbon Dioxide 32.0 (21.0-32.0) mmol/L Anion Gap 10.9 BUN 35.0 H (7.0-18.0) mg/dL Creatinine 1.67 H (0.55-1.02) mg/dL Est GFR ( Amer) 36 L (>=60 mL/min/1.73m^2) Est GFR (Non-Af Amer) 30 L (>=60 mL/min/1.73m^2) BUN/Creatinine Ratio 21.0 Glucose 151 H (74-106) mg/dL Calcium 8.5 (8.5-10.1) mg/dL Magnesium 2.0 (1.8-2.4) mg/dL Total Bilirubin 0.5 (0.2-1.0) mg/dL AST 19 (15-37) U/L ALT 21 (14-59) U/L Alkaline Phosphatase 150 H (46-116) U/L Troponin I High Sens 8.4 (4.0-51.3) pg/mL NT-Pro-B Natriuret Pep 203.0 (<=1800.0) pg/mL Total Protein 7.3 (6.4-8.2) g/dL Albumin 3.6 (3.4-5.0) g/dL Globulin 3.7 g/dL Albumin/Globulin Ratio 1.0 Urine Color Lt. yellow (YELLOW) Urine Clarity Clear (CLEAR) Urine pH 5.5 (5.0-9.0) Ur Specific Bicknell 1.020 (1.005-1.025) Urine Protein Negative (NEG/TRACE) mg/dL Urine Glucose (UA) Negative (NEGATIVE) mg/dL Urine Ketones Negative (NEGATIVE) mg/dL Urine Occult Blood Small A (NEGATIVE) Urine Nitrite Negative (NEGATIVE) Urine Bilirubin Negative (NEGATIVE) Urine Urobilinogen 0.2 (0.2-1.0) EU/dL Ur Leukocyte Esterase Small A (NEGATIVE) Urine RBC 2-5 A (0-2) #/HPF Urine WBC 5-10 A (NONE SEEN) #/HPF Ur Squamous Epith Cells Few A (NONE/RARE) #/LPF Urine Crystals None seen (None Seen) #/HPF Urine Bacteria Moderate A (NONE SEEN) #/HPF Urine Casts Seen A (NONE SEEN) #/LPF Hyaline Casts Few Urine Mucus Small A (NONE SEEN) Ur Culture Indicated? Yes-[facility] [place] Discharge Plan Discharge Chief Complaint: Nausea/Vomiting/Diarrhea Clinical Impression: Dizziness, Nausea & vomiting, Acute UTI, Hypoxia Patient Disposition: Admitted as Observation Time of Disposition Decision: 14:21 Condition: Fair Discharge Date/Time: 11/08/24 19:50
--- NOTE | 2024-11-08 13:42 | PC.NURSE ---
pt took a CBD gummy today and 30 mins later got dizzy and nausseous and began vomiting
[2024-11-08 13:53] LABS: Bilirubin Urine NEGATIVE (NEGATIVE); Blood Urine SMALL (NEGATIVE); Clarity Urine CLEAR (CLEAR); Color Urine LT. YELLOW (YELLOW); Glucose Urine UA NEGATIVE (NEGATIVE); Ketones Urine NEGATIVE (NEGATIVE); Leukocyte Esterase Urine SMALL (NEGATIVE); Nitrite Urine NEGATIVE (NEGATIVE); Protein Urine NEGATIVE (NEG/TRACE); Urobilinogen Urine 0.2 EU/dL (0.2-1.0); pH Urine 5.5 (5.0-9.0)
[2024-11-08 14:15] LABS: Bacteria Urine MODERATE #/HPF (NONE SEEN); Mucus Urine SMALL (NONE SEEN); Squamous Epithelial Cell Urine FEW #/LPF (NONE/RARE)
[2024-11-08 14:16] LABS: Cast Seen? SEEN #/LPF (NONE SEEN); Crystals Seen? None Seen #/HPF (None Seen); Hyaline Casts Urine FEW; Urine Culture Indicated YES-FRMC
--- NOTE | 2024-11-08 14:39 | PC.NURSE ---
1427 - pt signed AMA paper. made aware of the concerns we have for her going home with low oxygen.
--- NOTE | 2024-11-08 14:39 | PC.NURSE ---
1437 - IV removed and pt explained dc instructionss for UTI. attempting to get into wheelchair to take to waiting room and pt states she doesn't feel she can go home anymore. states she is too dizzy and lives alone. informed Dr Ortiz and LISA Villar.
--- NOTE | 2024-11-08 14:41 | PC.NURSE ---
now increased O2 to 3L NC. SpO2 now 92%.
[2024-11-08] MEDS: MECLIZINE HCL 12.5 MG TABLET 25 MG PO (15:14)
[2024-11-08] MEDS: CEFTRIAXONE 1,000 MG in 0.9 % SODIUM CHLORIDE 50 ML 100 MG IV (15:15)
[2024-11-08] MEDS: LACTATED RINGER'S SOLUTION 1,000 ML 50 ML IV (15:56)
[2024-11-08] MEDS: ACETAMINOPHEN 500 MG TABLET 1000 MG PO (18:13)
--- OUTSIDE RECORDS SUMMARY | 2024-11-08 19:56 | XMS_ITS | CCD ---
Author Organization [facility] Care Team Providers Care Grain Ii Farmworker Name Role Phone NEGAR, DR OVIDIO Kyle [...] Attending Unavailable RUSHER, DICK Kyle Attending Unavailable GAUSPARTH Attending Unavailable NADERER, OVIDIO Attending Unavailable DOS SANTOSFABIAN Attending Unavailable GILLMOR, CHOCO Attending Unavailable NADERER, OVIDIO Attending Unavailable Allergies Allergy Classification Reported Allergen(s) Allergy Type Date of Onset Reaction(s) Facility (1 source) Allopurinol Drug Allergy [facility] (2 sources) Aspirin; Translations: [ASPIRIN] Drug Allergy 7 [facility] (1 source) Cephalexin Drug Allergy [facility] (2 sources) NSAIDs; Translations: [NSAIDS (NON-STEROIDAL ANTI-INFLAMMATO RY DRUG)] Drug allergy (disorder) 7 [facility] (20 sources) Cephalexin; Translations: [CEPHALEXIN] Drug Allergy 8 [facility] Healthcare (20 sources) metFORMIN Drug Allergy 4 GI intolerance [facility] (20 sources) Non-steroidal anti-inflammato ry agent Drug Intolerance 7 [facility] (20 sources) Tetanus vaccine; Translations: [TETANUS TOXOID] Propensity to adverse reactions 7 Unknown [facility] (6 sources) Sertraline Drug Allergy 3 [facility] (1 source) gabapentin; Translations: [GABAPENTIN] Drug [...] daily as needed for pain HYDROcodone-acetami nophen ([place]) 5-325 MG tablet Indications: Fibromyalgia Take 1 tablet by mouth 4 (four) times a day as needed for severe pain 120 tablet 09/28/2024 10/28/2024 Active Start: 07-26-2024 End: 09-24-2024 take 1 tablet by mouth four times daily as needed for pain HYDROcodone-acetaminophen ([place]) 5-325 MG tablet Indications: Fibromyalgia Take 1 [...] microalbuminuria, without long-term current use of insulin (CMS/[facility]) 1 each by Other route Daily 1 each 11/16/2023 Active Blood Glucose Monitoring Suppl (Prodigy Autocode Blood Glucose) w/Device kit (20 sources) Start: 11-16-2023 Blood Glucose Monitoring Suppl (Prodigy Autocode Blood Glucose) w/Device kit Indications: Type 2 diabetes mellitus with microalbuminuria, without long-term current use of insulin (CMS/[facility]) 1 each by Other route Daily 1 [...] DAY 90 capsule 3 11/18/2023 Active nystatin 421903 unt/ml topical cream (20 sources) Polyene Antifungal [...] (BMI) of 50.0 to 59.9 in adult ([facility])] Onset: 08-24-2023 09-19-2024 Chronic Other skin disorders [...] 09-05-2024 Albumin [Mass/Vol] 3.7 g/dL Normal 3.2-5.3 [facility] Comment on above: Performed By: #### C BC, C34, 1751-7, BMP, 19491-4, 2777-1, 2731-8, 80456-9 #### [facility] ([id number]) [address], [address] [place] [address] BASIC METABOLIC PANLon 09-05 Anion gap [Moles/Vol] 11 mmol/L Normal 5-15 [facility] Comment on above: Performed By: #### Triny BC, C34, 1751-7, BMP, 15917-0, 2777-1, 2731-8, 94514-9 #### [facility] ([id number]) [address], [address] [place] [address] Calcium [Mass/Vol] 8.6 mg/dL Normal 8.5-10.5 [facility] Comment on above: Performed By: #### Triny BC, C34, 1751-7, BMP, 18911-5, 2777-1, 2731-8, 77483-9 #### [facility] ([id number]) [address], [address] [place] [address] Chloride [Moles/Vol] 103 mmol/L Normal 98-109 [facility] Comment on above: Performed By: #### Triny BC, C34, 1751-7, BMP, 88378-2, 2777-1, 2731-8, 06182-6 #### [facility] ([id number]) [address], [address] [place] [address] CO2 [Moles/Vol] 32 mmol/L Normal 22-32 [facility] Comment on above: Performed By: #### C BC, C34, 1751-7, BMP, 02478-3, 2777-1, 2731-8, 32877-5 #### [facility] ([id number]) [address], [address] [place] [address] Creatinine [Mass/Vol] 1.27 mg/dL High 0.40-1.00 [facility] Comment on above: Result Comment: METH OD TRACEABLE TO IDMS STANDARD Performed By: #### C SANJANA, C34, 1751-7, BMP, 79784-8, 2777-1, 2731-8, 54254-5 #### [facility] ([id number]) [address], [address] [place] [address] GFR/1.73 sq M.predicted among non-blacks MDRD (S/P/Bld) [Vol rate/Area] 44 mL/min/{1.73_m2} Low >59 [facility] Comment on above: Result Comment: Reported eGFR is based on the CKD-EPI 2020 equation that does not use a race coefficient. Performed By: #### C SANJANA, C34, 1751-7, BMP, 80860-0, 2777-1, 2731-8, 43740-2 #### [facility] ([id number]) [address], [address] [place] [address] Glucose [Mass/Vol] 123 mg/dL High 65-99 [facility] Comment on above: Performed By: #### C BC, C34, 1751-7, BMP, 58312-9, 2777-1, 2731-8, 55694-0 #### [facility] ([id number]) [address], [address] [place] [address] Potassium [Moles/Vol] 4.2 mmol/L Normal 3.5-5.0 [facility] Comment on above: Performed By: #### C BC, C34, 1751-7, BMP, 08585-1, 2777-1, 2731-8, 73408-2 #### [facility] ([id number]) [address], [address] [place] [address] Sodium [Moles/Vol] 146 mmol/L Normal 134-146 [facility] Comment on above: Performed By: #### C BC, C34, 1751-7, BMP, 61718-7, 2777-1, 2731-8, 30675-0 #### [facility] ([id number]) [address], [address] [place] [address] Urea nitrogen [Mass/Vol] 20 mg/dL Normal 5-27 [facility] Comment on above: Performed By: #### C BC, C34, 1751-7, BMP, 42642-8, 2776-1, 273-8, 53228-3 #### [facility] ([id number]) [address], [address] [place] [address] CBC AND AUTO DIFFon 12-30-20 24 ABSOLUTE BASOPHIL 0.1 X10E9/L Normal 0.0-0.2 [facility] Comment on above: Performed By: #### C BC, C34, 1751-7, BMP, 33563-6, 7-1, 273-8, 37949-3 #### [facility] ([id number]) [address], [address] [place] [address] ABSOLUTE NEUTROPHIL 2.9 X10E9/L Normal 1.5-6.6 [facility] Comment on above: Performed By: #### C BC, C34, 1751-7, BMP, 88221-8, 2777-1, 2731-8, 01635-7 #### [facility] ([id number]) [address], [address] [place] [address] Basophils/100 WBC (Bld) 1.6 % Normal [facility] Comment on above: Performed By: #### C BC, C34, 1751-7, BMP, 61444-9, 2777-1, 2731-8, 05840-4 #### [facility] ([id number]) [address], [address] [place] [address] Eosinophils (Bld) [#/Vol] 0.3 10*3/uL Normal 0.0-0.4 [facility] Comment on above: Performed By: #### C BC, C34, 1751-7, BMP, 31150-5, 2777-1, 2731-8, 12617-2 #### [facility] ([id number]) [address], [address] [place] [address] Eosinophils/100 WBC (Bld) 6.3 % Normal [facility] Comment on above: Performed By: #### C BC, C34, 1751-7, BMP, 37537-5, 2777-1, 2731-8, 55348-3 #### [facility] ([id number]) [address] [address] [place] [address] Erythrocyte distribution width (RBC) [Ratio] 17.9 % High 11.5-15.0 [facility] Comment on above: Performed By: #### C BC, C34, 1751-7, BMP, 75586-5, 2777-1, 2731-8, 43298-1 #### [facility] ([id number]) [address], [address] [place] [address] Hematocrit (Bld) [Volume fraction] 42.6 % Normal 35-47 [facility] Comment on above: Performed By: #### C BC, C34, 1751-7, BMP, 80574-5, 2777-1, 2731-8, 67653-4 #### [facility] ([id number]) [address], [address] [place] [address] Hemoglobin (Bld) [Mass/Vol] 13.2 g/dL Normal 11.7-15.5 [facility] Comment on above: Performed By: #### C BC, C34, 1751-7, BMP, 27141-7, 2777-1, 2731-8, 40182-2 #### [facility] ([id number]) [address], [address] [place] [address] Lymphocytes (Bld) [#/Vol] 1.2 10*3/uL Normal 1.0-3.5 [facility] Comment on above: Performed By: #### Triny BC, C34, 1751-7, BMP, 41701-4, 2777-1, 2731-8, 05164-5 #### [facility] ([id number]) [address], [address] [place] [address] Lymphocytes/100 WBC (Bld) 24.3 % Normal [facility] Comment on above: Performed By: #### C BC, C34, 1751-7, BMP, 48324-7, 2777-1, 2731-8, 28875-7 #### [facility] ([id number]) [address], [address] [place] [address] MCH (RBC) [Entitic mass] 24.5 pg Low 27-34 [facility] Comment on above: Performed By: #### Triny BC, C34, 1751-7, BMP, 45217-5, 2777-1, 2731-8, 56521-3 #### [facility] ([id number]) [address], [address] [place] [address] MCHC (RBC) [Mass/Vol] 31.1 g/dL Low 32-36 [facility] Comment on above: Performed By: #### Triny BC, C34, 1751-7, BMP, 34302-1, 2777-1, 2731-8, 00770-0 #### [facility] ([id number]) [address], [address] [place] [address] MCV (RBC) [Entitic vol] 79 fL Low 80-100 [facility] Comment on above: Performed By: #### C BC, C34, 1751-7, BMP, 20749-2, 2777-1, 2731-8, 81739-6 #### [facility] ([id number]) [address], [address] [place] [address] Monocytes (Bld) [#/Vol] 0.4 10*3/uL Normal 0-0.9 [facility] Comment on above: Performed By: #### Triny BC, C34, 1751-7, BMP, 29574-6, 2777-1, 2731-8, 96749-7 #### [facility] ([id number]) [address], [address] [place] [address] Monocytes/100 WBC (Bld) 8.0 % Normal [facility] Comment on above: Performed By: #### Triny BC, C34, 1751-7, BMP, 62524-2, 2777-1, 2731-8, 24396-1 #### [facility] ([id number]) [address], [address] [place] [address] Neutrophils/100 WBC (Bld) 59.8 % Normal [facility] Comment on above: Performed By: #### Triny BC, C34, 1751-7, BMP, 34300-5, 2777-1, 2731-8, 45596-9 #### [facility] ([id number]) [address], [address] [place] [address] Platelet mean volume (Bld) [Entitic vol] 9.5 fL Normal 7-12 [facility] Comment on above: Performed By: #### Triny BC, C34, 1751-7, BMP, 21058-6, 2777-1, 2731-8, 62713-0 #### [facility] ([id number]) [address], [address] [place] [address] Platelets (Bld) [#/Vol] 153 10*3/uL Normal 150-450 [facility] Comment on above: Performed By: #### C BC, C34, 1751-7, BMP, 53838-7, 2777-1, 2731-8, 36050-7 #### [facility] ([id number]) [address], [address] [place] [address] RBC COUNT 5.40 X10E12/L High 3.80-5.20 [facility] Comment on above: Performed By: #### C BC, C34, 1751-7, BMP, 42713-5, 2777-1, 2731-8, 42129-0 #### [facility] ([id number]) [address], [address] [place] [address] WBC (Bld) [#/Vol] 4.9 10*3/uL Normal 4.0-11.0 [facility] Comment on above: Performed By: #### C BC, C34, 1751-7, BMP, 06556-8, 2777-1, 2731-8, 20364-9 #### [facility] ([id number]) [address], [address] [place] [address] HGB A1C (GLYCO-HGB)on 2023 Glucose [Mass/Vol] 134 mg/dL Normal [facility] Comment on above: Performed By: #### C BC, C34, 1751-7, BMP, 26600-7, 2777-1, 2731-8, 19405-3 #### [facility] ([id number]) [address], [address] [place] [address] HbA1c (Bld) [Mass fraction] 6.3 % High 4.4-5.6 [facility] Comment on above: Result Comment: NOTE ADA Guidelines Result HgbA1c Normal : less than 5.7 % Prediabetes : 5.7 % to 6.4 % Diabetes : > 6.4 % Use with caution in patients with abnormal hemoglobin variants as the half-life of red blood cells and in vivo glycation rates are affected. Performed By: #### C SANJANA, C34, 175-7, BMP, 98582-6, 2776-1, 2730-8, 89781-9 #### [facility] ([id number]) [address], [address] [place] [address] MAGNESIUMon 09-05-2024 Magnesium [Mass/Vol] 2.0 mg/dL Normal 1.8-2.6 [facility] Comment on above: Performed By: #### Triny ALLAN, C34, 175-7, BMP, 69365-1, 2776-09, 2730-, 55798-3 #### [facility] ([id number]) [address], [address] [place] [address] MICROALBUMIN - ALBUMIN:CREAT ININE URINE RATIOon 09-05-2024 ALB/CREAT RATIO 59.4 mg/g creat High 0.0-30.0 [facility] Comment on above: Performed By: #### Jerel CARR, 0 #### [facility] ([id number]) [address], [address] [place] [address] Albumin DL <= 20 mg/L (U) [Mass/Vol] 1.2 mg/dL Normal 0.0-1.9 [facility] Comment on above: Performed By: #### Jerel CARR, 0 #### [facility] ([id number]) [address], [facility] [address] [place] [address] URINE CREAT 20.19 mg/dL Normal [facility] Comment on above: Performed By: #### Jerel CARR, 0 #### [facility] ([id number]) [address], [address] [place] [address] PHOSPHORUSon 09-05-2024 Phosphate [Mass/Vol] 3.3 mg/dL Normal 2.4-4.9 [facility] Comment on above: Performed By: #### C BC, C34, 1751-7, BMP, 44029-6, 2777-1, 2731-8, 77755-2 #### [facility] ([id number]) [address], [address] [place] [address] Parathyrin.intact [Mass/Vol] on 09-05-2024 PTH INTACT 111 pg/mL High [facility] Comment on above: Performed By: #### C BC, C34, 1751-7, BMP, 67659-0, 2777-1, 2731-8, 10259-4 #### [facility] ([id number]) [address], [address] [place] [address] URINALYSISon 09-05-2024 Bilirubin Ql (U) Negative Normal NEG [facility] Comment on above: Performed By: #### Jerel CARR, 0 #### [facility] ([id number]) [address], [address] [place] [address] BLOOD/HGB Negative Normal NEG [facility] Comment on above: Performed By: #### Jerel CARR, 0 #### [facility] ([id number]) [address], [address] [place] [address] Color (U) YELLOW Normal YELLOW [facility] Comment on above: Performed By: #### Jerel CARR, 0 #### [facility] ([id number]) [address], [address] [place] [address] Glucose Ql (U) Negative Normal NEG [facility] Comment on above: Performed By: #### Jerel CARR, 3051-0 #### [facility] ([id number]) [address], [address] [place] [address] Ketones Ql (U) Negative Normal NEG [facility] Comment on above: Performed By: #### Jerel CARR, #### [facility] ([id number]) [address], [address] [place] [address] Leukocyte esterase Test strip Ql (U) Negative Normal NEG [facility] Comment on above: Performed By: #### Jerel CARR, #### [facility] ([id number]) [address], [address] [place] [address] Nitrite Ql (U) Negative Normal NEG [facility] Comment on above: Performed By: #### Jerel CARR, #### [facility] ([id number]) [address], [address] [place] [address] pH (U) 6.5 [pH] Normal 5.0-8.5 [facility] Comment on above: Performed By: #### Jerel CARR, #### [facility] ([id number]) [address], [address] [place] [address] Protein Ql (U) Negative Normal NEG [facility] Comment on above: Performed By: #### Jerel CARR, #### [facility] ([id number]) [address] [place] [address] Specific gravity (U) [Rel density] 1.010 Normal 1.003-1.035 [facility] Comment on above: Performed By: #### Jerel CARR, #### [facility] ([id number]) [address], [address] [place] [address] TURBIDITY CLEAR Normal CLEAR [facility] Comment on above: Performed By: #### Jerel CARR, 3051-0 #### [facility] ([id number]) [address] [facility] [place] [address] Urobilinogen (U) [Mass/Vol] mg/dL Normal <1.1 [facility] Comment on above: Performed By: #### T BRUNO, 3051-0 #### [facility] ([id number]) [address] [facility] [place] [address] Vitamin D+Metabolites [Mass/ Vol]on 09-05-2024 VITAMIN D 25 HYD TOT 42.3 ng/mL Normal 30-100 [facility] Comment on above: Result Comment: Vitamin D status 25 [place] Vitamin D Deficiency <20 ng/mL Insufficiency 20-29 ng/mL Sufficiency 30-100 ng/mL Toxicity >100 ng/mL NOTE: A pediatric reference range has not been established by the pole maker of this kit. The [place] [employer] recommends a Vitamin D level of = or >20ng/mL in infants and children. Performed By: #### C BC, C34, 1751-7, BMP, 34570-9, 2777-1, 2731-8, 82548-1 #### [facility] ([id number]) [address] [facility] [address] [place] [address] No Panel Informationon 07-13 Fabian Dos Santos NP 07/13/2024 9:20 AM L Inj/Asp: L knee on 07/13/2024 9:19 AM Indications: pain Details: anterolateral approach Medications: 40 mg methylPREDNISolone acetate 40 MG/ML Outcome: tolerated well, no immediate complications Site was cleaned with isopropyl alcohol Procedure, treatment alternatives, risks and benefits explained, specific risks discussed. Consent was given by the patient. [facility] CBC AND AUTO DIFFon 04-07-20 24 ABSOLUTE BASOPHIL 0.0 X10E9/L Normal 0.0-0.2 [facility] Comment on above: Performed By: #### T BRUNO, #### [facility] ([id number]) [address], [address] [place] [address] ABSOLUTE NEUTROPHIL 3.7 X10E9/L Normal 1.5-6.6 [facility] Comment on above: Performed By: #### T HYR, 0 #### [facility] ([id number]) [address], [address] [place] [address] Basophils/100 WBC (Bld) 0.8 % Normal [facility] Comment on above: Performed By: #### T HYR, #### [facility] ([id number]) [address], [address] [place] [address] Eosinophils (Bld) [#/Vol] 0.4 10*3/uL Normal 0.0-0.4 [facility] Comment on above: Performed By: #### T HYR, #### [facility] ([id number]) [address] [place] [address] Eosinophils/100 WBC (Bld) 6.3 % Normal [facility] Comment on above: Performed By: #### T HYR, #### [facility] ([id number]) [address], [address] [place] [address] Erythrocyte distribution width (RBC) [Ratio] 19.8 % High 11.5-15.0 [facility] Comment on above: Performed By: #### T HYR, #### [facility] ([id number]) [address] [place] [address] Hematocrit (Bld) [Volume fraction] 39.5 % Normal 35-47 [facility] Comment on above: Performed By: #### T HYR, 0 #### [facility] ([id number]) [address], [address] [place] [address] Hemoglobin (Bld) [Mass/Vol] 12.3 g/dL Normal 11.7-15.5 [facility] Comment on above: Performed By: #### Jerel CARR, #### [facility] ([id number]) [address] [facility] [address] [place] [address] Lymphocytes (Bld) [#/Vol] 1.2 10*3/uL Normal 1.0-3.5 [facility] Comment on above: Performed By: #### Jerel CARR, #### [facility] ([id number]) [address], [facility] [address] [place] [address] Lymphocytes/100 WBC (Bld) 20.1 % Normal [facility] Comment on above: Performed By: #### Jerel CARR, #### [facility] ([id number]) [address], [address] [place] [address] MCH (RBC) [Entitic mass] 24.0 pg Low 27-34 [facility] Comment on above: Performed By: #### Jerel ACRR, #### [facility] ([id number]) [address], [facility] [address] [place] [address] MCHC (RBC) [Mass/Vol] 31.1 g/dL Low 32-36 [facility] Comment on above: Performed By: #### Jerel CARR, #### [facility] ([id number]) [address] [address] [place] [address] MCV (RBC) [Entitic vol] 77 fL Low 80-100 [facility] Comment on above: Performed By: #### T BRUNO, #### [facility] ([id number]) [address], [address] [place] [address] Monocytes (Bld) [#/Vol] 0.5 10*3/uL Normal 0-0.9 [facility] Comment on above: Performed By: #### Jerel CARR, #### [facility] ([id number]) [address], [address] [place] [address] Monocytes/100 WBC (Bld) 8.8 % Normal [facility] Comment on above: Performed By: #### Jerel CARR, #### [facility] ([id number]) [address] [place] [address] Neutrophils/100 WBC (Bld) 64.0 % Normal [facility] Comment on above: Performed By: #### Jerel CARR, #### [facility] ([id number]) [address], [address] [place] [address] Platelet mean volume (Bld) [Entitic vol] 9.1 fL Normal 7-12 [facility] Comment on above: Performed By: #### Jerel CARR, #### [facility] ([id number]) [address] [place] [address] Platelets (Bld) [#/Vol] 163 10*3/uL Normal 150-450 [facility] Comment on above: Performed By: #### Jerel CARR, #### [facility] ([id number]) [address] [place] [address] RBC COUNT 5.11 X10E12/L Normal 3.80-5.20 [facility] Comment on above: Performed By: #### Jerel CARR, #### [facility] ([id number]) [address], [address] [place] [address] WBC (Bld) [#/Vol] 5.8 10*3/uL Normal 4.0-11.0 [facility] Comment on above: Performed By: #### Jerel CARR, 0 #### [facility] ([id number]) [address], [address] [place] [address] COMPREHENSIVE METABOLIC PANE Toñito 04-07-2024 Albumin [Mass/Vol] 3.7 g/dL Normal 3.2-5.3 [facility] Comment on above: Performed By: #### T BRUNO, 3050-0 #### [facility] ([id number]) [address] [place] [address] ALP [Catalytic activity/Vol] 100 U/L Normal 39-130 [facility] Comment on above: Performed By: #### Jerel CARR, 3050-0 #### [facility] ([id number]) [address] [place] [address] ALT [Catalytic activity/Vol] 11 U/L Normal 0-31 [facility] Comment on above: Performed By: #### T BRUNO, 3050-0 #### [facility] ([id number]) [address] [place] [address] Anion gap [Moles/Vol] 6 mmol/L Normal 5-15 [facility] Comment on above: Performed By: #### T BRUNO, 3050-0 #### [facility] ([id number]) [address] [place] [address] AST [Catalytic activity/Vol] 16 U/L Normal 0-41 [facility] Comment on above: Performed By: #### T HYR, 3050-0 #### [facility] ([id number]) [address] [place] [address] Bilirubin [Mass/Vol] 0.5 mg/dL Normal 0.3-1.2 [facility] Comment on above: Performed By: #### T BRUNO, 3050-0 #### [facility] ([id number]) [address], [address] [place] [address] Calcium [Mass/Vol] 8.1 mg/dL Low 8.5-10.5 [facility] Comment on above: Performed By: #### Jerel CARR, #### [facility] ([id number]) [address], [address] [place] [address] Chloride [Moles/Vol] 104 mmol/L Normal 98-109 [facility] Comment on above: Performed By: #### Jerel CARR, #### [facility] ([id number]) [address], [address] [place] [address] CO2 [Moles/Vol] 28 mmol/L Normal 22-32 [facility] Comment on above: Performed By: #### Jerel CARR #### [facility] ([id number]) [address], [address] [place] [address] Creatinine [Mass/Vol] 1.20 mg/dL High 0.40-1.00 [facility] Comment on above: Result Comment: METH OD TRACEABLE TO IDMS STANDARD Performed By: #### Jerel CARR, #### [facility] ([id number]) [address], [address] [place] [address] GFR/1.73 sq M.predicted among non-blacks MDRD (S/P/Bld) [Vol rate/Area] 47 mL/min/{1.73_m2} Low >59 [facility] Comment on above: Result Comment: Reported eGFR is based on the CKD-EPI 2020 equation that does not use a race coefficient. Performed By: #### Jerel CARR, 0 #### [facility] ([id number]) [address], [address] [place] [address] Glucose [Mass/Vol] 153 mg/dL High 65-99 [facility] Comment on above: Performed By: #### Jerel CARR, 3051-0 #### [facility] ([id number]) [address], [address] [place] [address] Potassium [Moles/Vol] 4.8 mmol/L Normal 3.5-5.0 [facility] Comment on above: Performed By: #### T BRUNO, #### [facility] ([id number]) [address], [address] [place] [address] Protein [Mass/Vol] 6.9 g/dL Normal 6.0-8.0 [facility] Comment on above: Performed By: #### Jerel CARR, #### [facility] ([id number]) [address], [address] [place] [address] Sodium [Moles/Vol] 138 mmol/L Normal 134-146 [facility] Comment on above: Performed By: #### Jerel CARR, #### [facility] ([id number]) [address], [address] [place] [address] Urea nitrogen [Mass/Vol] 22 mg/dL Normal 5-27 [facility] Comment on above: Performed By: #### Jerel CARR, #### [facility] ([id number]) [address], [address] [place] [address] MAGNESIUMon 04-07-2024 Magnesium [Mass/Vol] 2.2 mg/dL Normal 1.8-2.6 [facility] Comment on above: Performed By: #### T BRUNO, #### [facility] ([id number]) [address], [address] [place] [address] Natriuretic peptide B [Mass/ Vol]on 04-07-2024 Natriuretic peptide B (Bld) [Mass/Vol] 22 pg/mL Normal <100.0 [facility] Comment on above: Performed By: #### Jerel CARR, 3051-0 #### [facility] ([id number]) [address], [address] [place] [address] URINALYSISon 03-23-2024 Bilirubin Ql (U) Negative Normal NEG [facility] Comment on above: Performed By: #### Jerel CARR, 3050-0 #### [facility] ([id number]) [address], [address] [place] [address] BLOOD/HGB MODERATE Abnormal NEG [facility] Comment on above: Performed By: #### Jerel CARR, 0 #### [facility] ([id number]) [address], [address] [place] [address] Color (U) YELLOW Normal YELLOW [facility] Comment on above: Performed By: #### Jerel CARR, 0 #### [facility] ([id number]) [address], [address] [place] [address] Glucose Ql (U) Negative Normal NEG [facility] Comment on above: Performed By: #### Jerel CARR, 0 #### [facility] ([id number]) [address], [address] [place] [address] Hyaline casts LM Ql (Urine sed) 3 /lpf High 0-2 [facility] Comment on above: Performed By: #### Jerel CARR, 0 #### [facility] ([id number]) [address], [address] [place] [address] Ketones Ql (U) Negative Normal NEG [facility] Comment on above: Performed By: #### Jerel CARR, 0 #### [facility] ([id number]) [address], [address] [place] [address] Leukocyte esterase Test strip Ql (U) MODERATE Abnormal NEG [facility] Comment on above: Performed By: #### Jerel CARR, 3050-0 #### [facility] ([id number]) [address], [address] [place] [address] MUCOUS PRESENT Abnormal NONE [facility] Comment on above: Performed By: #### Jerel CARR, #### [facility] ([id number]) [address], [address] [place] [address] Nitrite Ql (U) Negative Normal NEG [facility] Comment on above: Performed By: #### Jerel CARR, #### [facility] ([id number]) [address], [address] [place] [address] pH (U) 6.0 [pH] Normal 5.0-8.5 [facility] Comment on above: Performed By: #### Jerel CARR, #### [facility] ([id number]) [address], [address] [place] [address] Protein Ql (U) Trace Abnormal NEG [facility] Comment on above: Performed By: #### Jerel CARR, #### [facility] ([id number]) [address], [address] [place] [address] R.B.CELLS 46 /hpf High 0-5 [facility] Comment on above: Performed By: #### Jerel CARR, 0 #### [facility] ([id number]) [address], [address] [place] [address] Specific gravity (U) [Rel density] 1.020 Normal 1.003-1.035 [facility] Comment on above: Performed By: #### Jerel CARR, #### [facility] ([id number]) [address], [address] [place] [address] SQUAMOUS EPITHELIUM 3 /hpf Normal 0-5 [facility] Comment on above: Performed By: #### Jerel CARR, 0 #### [facility] ([id number]) [address], [address] [place] [address] TURBIDITY CLEAR Normal CLEAR [facility] Comment on above: Performed By: #### Jerel CARR, 0 #### [facility] ([id number]) [address], [address] [place] [address] Urobilinogen (U) [Mass/Vol] mg/dL Normal <1.1 [facility] Comment on above: Performed By: #### Jerel CARR, 0 #### [facility] ([id number]) [address], [address] [place] [address] W.B.CELLS 33 /hpf High 0-5 [facility] Comment on above: Performed By: #### Jerel CARR, 0 #### [facility] ([id number]) [address], [address] [place] [address] URINE CULTUREon 03-23-2024 Bacteria identified Cx Nom [...] F TRIMETH/SULFAMETHOXAZO LE R >=16/304 F Resistant [facility] Comment on above: Performed By: #### Jerel CARR, 3050-0 #### [facility] ([id number]) [address], [address] [place] [address] ALBUMINon 02-03-2024 Albumin [Mass/Vol] 3.7 g/dL Normal 3.2-5.3 [facility] Comment on above: Performed By: #### C BC, C34, 1751-7, BMP, 35439-2, 2777-1, 2731-8, 48073-7 #### [facility] ([id number]) [address], [address] [place] [address] BASIC METABOLIC PANLon 02-02 Anion gap [Moles/Vol] 11 mmol/L Normal 5-15 [facility] Comment on above: Performed By: #### C BC, C34, 1751-7, BMP, 22317-8, 2777-1, 2731-8, 23123-7 #### [facility] ([id number]) [address], [address] [place] [address] Calcium [Mass/Vol] 8.8 mg/dL Normal 8.5-10.5 [facility] Comment on above: Performed By: #### C BC, C34, 1751-7, BMP, 92946-6, 2777-1, 2731-8, 13420-2 #### [facility] ([id number]) [address], [address] [place] [address] Chloride [Moles/Vol] 100 mmol/L Normal 98-109 [facility] Comment on above: Performed By: #### C BC, C34, 1751-7, BMP, 32709-1, 2777-1, 2731-8, 50298-9 #### [facility] ([id number]) [address], [address] [place] [address] CO2 [Moles/Vol] 33 mmol/L High 22-32 [facility] Comment on above: Performed By: #### Triny BC, C34, 1751-7, BMP, 14899-5, 2777-1, 2731-8, 91951-5 #### [facility] ([id number]) [address], [address] [place] [address] Creatinine [Mass/Vol] 1.71 mg/dL High 0.40-1.00 [facility] Comment on above: Result Comment: METH OD TRACEABLE TO IDMS STANDARD Performed By: #### C BC, C34, 1751-7, BMP, 73093-1, 2777-1, 2731-8, 20965-0 #### [facility] ([id number]) [address], [address] [place] [address] GFR/1.73 sq M.predicted among non-blacks MDRD (S/P/Bld) [Vol rate/Area] 31 mL/min/{1.73_m2} Low >59 [facility] Comment on above: Result Comment: Reported eGFR is based on the CKD-EPI 2020 equation that does not use a race coefficient. Performed By: #### C BC, C34, 1751-7, BMP, 29709-7, 2777-1, 2731-8, 27502-0 #### [facility] ([id number]) [address], [address] [place] [address] Glucose [Mass/Vol] 139 mg/dL High 65-99 [facility] Comment on above: Performed By: #### C BC, C34, 1751-7, BMP, 36253-2, 2777-1, 2731-8, 64001-1 #### [facility] ([id number]) [address], [address] [place] [address] Potassium [Moles/Vol] 4.1 mmol/L Normal 3.5-5.0 [facility] Comment on above: Performed By: #### C BC, C34, 1751-7, BMP, 82744-7, 2777-1, 2731-8, 94779-8 #### [facility] ([id number]) [address], [address] [place] [address] Sodium [Moles/Vol] 144 mmol/L Normal 134-146 [facility] Comment on above: Performed By: #### C BC, C34, 1751-7, BMP, 95273-8, 2777-1, 2731-8, 61945-2 #### [facility] ([id number]) [address], [facility] [address] [place] [address] Urea nitrogen [Mass/Vol] 29 mg/dL High 5-27 [facility] Comment on above: Performed By: #### C BC, C34, 1751-7, BMP, 92363-4, 2777-1, 2731-8, 23350-5 #### [facility] ([id number]) [address], [facility] [address] [place] [address] COMPLEMENT PROFILEon 024 COMPLEMENT C3 148 mg/dL Normal 86-184 [facility] Comment on above: Performed By: #### C BC, C34, 1751-7, BMP, 07241-0, 2777-1, 2731-8, 69699-6 #### [facility] ([id number]) [address], [facility] [address] [place] [address] COMPLEMENT C4 45 mg/dL Normal 16-47 [facility] Comment on above: Performed By: #### C BC, C34, 1751-7, BMP, 56660-4, 2777-1, 2731-8, 79743-7 #### [facility] ([id number]) [address], [address] [place] [address] COMPLETE BLOOD COUNTon 02-02 Erythrocyte distribution width (RBC) [Ratio] 18.1 % High 11.5-15.0 [facility] Comment on above: Performed By: #### C BC, C34, 1751-7, BMP, 63519-3, 2777-1, 2731-8, 06317-6 #### [facility] ([id number]) [address], [address] [place] [address] Hematocrit (Bld) [Volume fraction] 39.0 % Normal 35-47 [facility] Comment on above: Performed By: #### C BC, C34, 1751-7, BMP, 77496-5, 2777-1, 2731-8, 87086-0 #### [facility] ([id number]) [address], [address] [place] [address] Hemoglobin (Bld) [Mass/Vol] 12.1 g/dL Normal 11.7-15.5 [facility] Comment on above: Performed By: #### Triny ALLAN, C34, 1751-7, BMP, 58330-9, 2777-1, 2731-8, 92881-7 #### [facility] ([id number]) [address], [address] [place] [address] MCH (RBC) [Entitic mass] 24.4 pg Low 27-34 [facility] Comment on above: Performed By: #### Triny ALALN, C34, 1751-7, BMP, 93683-0, 2777-1, 2731-8, 12007-4 #### [facility] ([id number]) [address], [address] [place] [address] MCHC (RBC) [Mass/Vol] 31.1 g/dL Low 32-36 [facility] Comment on above: Performed By: #### Triny BC, C34, 1751-7, BMP, 29998-0, 2777-1, 2731-8, 29438-3 #### [facility] ([id number]) [address], [address] [place] [address] MCV (RBC) [Entitic vol] 79 fL Low 80-100 [facility] Comment on above: Performed By: #### Triny BC, C34, 1751-7, BMP, 41548-5, 2777-1, 2731-8, 63983-3 #### [facility] ([id number]) [address], [address] [place] [address] Platelet mean volume (Bld) [Entitic vol] 9.5 fL Normal 7-12 [facility] Comment on above: Performed By: #### Triny ALLAN, C34, 1751-7, BMP, 98349-0, 2777-1, 2731-8, 56632-5 #### [facility] ([id number]) [address], [address] [place] [address] Platelets (Bld) [#/Vol] 158 10*3/uL Normal 150-450 [facility] Comment on above: Performed By: #### Triny ALLAN, C34, 175-7, BMP, 91423-9, 2777-1, 2731-8, 37111-1 #### [facility] ([id number]) [address], [address] [place] [address] RBC COUNT 4.95 X10E12/L Normal 3.80-5.20 [facility] Comment on above: Performed By: #### Triny ALLAN, C34, 175-7, BMP, 33722-4, 2777-1, 2731-8, 01849-1 #### [facility] ([id number]) [address], [address] [place] [address] WBC (Bld) [#/Vol] 5.2 10*3/uL Normal 4.0-11.0 [facility] Comment on above: Performed By: #### Triny ALLAN, C34, 1751-7, BMP, 80217-3, 2777-1, 2731-8, 97579-1 #### [facility] ([id number]) [address] [address] [place] [address] MAGNESIUMon 02-03-2024 Magnesium [Mass/Vol] 2.4 mg/dL Normal 1.8-2.6 [facility] Comment on above: Performed By: #### Triny BC, C34, 1751-7, BMP, 86668-2, 2777-1, 2731-8, 30600-8 #### [facility] ([id number]) [address], [address] [place] [address] MICROALBUMIN - ALBUMIN:CREAT ININE URINE RATIOon 02-03-2024 ALB/CREAT RATIO 27.2 mg/g creat Normal 0.0-30.0 [facility] Comment on above: Performed By: #### Jerel CARR, 0 #### [facility] ([id number]) [address], [address] [place] [address] Albumin DL <= 20 mg/L (U) [Mass/Vol] 0.9 mg/dL Normal 0.0-1.9 [facility] Comment on above: Performed By: #### Jerel CARR, 0 #### [facility] ([id number]) [address], [address] [place] [address] URINE CREAT 33.07 mg/dL Normal [facility] Comment on above: Performed By: #### Jeerl CARR, 0 #### [facility] ([id number]) [address], [address] [place] [address] PHOSPHORUSon 02-03-2024 Phosphate [Mass/Vol] 4.3 mg/dL Normal 2.4-4.9 [facility] Comment on above: Performed By: #### C BC, C34, 175-7, BMP, 81298-9, 2777-1, 2731-8, 59977-4 #### [facility] ([id number]) [address] [address] [place] [address] Parathyrin.intact [Mass/Vol] on 02-03-2024 PTH INTACT 211 pg/mL High 12-88 [facility] Comment on above: Performed By: #### C BC, C34, 1751-7, BMP, 51633-9, 2777-1, 2731-8, 86124-9 #### [facility] ([id number]) [address], [address] [place] [address] URINALYSISon 02-03-2024 Bilirubin Ql (U) Negative Normal NEG [facility] Comment on above: Performed By: #### Jerel CARR, 3050-0 #### [facility] ([id number]) [address], [address] [place] [address] BLOOD/HGB Negative Normal NEG [facility] Comment on above: Performed By: #### Jerel CARR, 3050-0 #### [facility] ([id number]) [address], [address] [place] [address] Color (U) YELLOW Normal YELLOW [facility] Comment on above: Performed By: #### Jerel CARR, 3050-0 #### [facility] ([id number]) [address] [place] [address] Glucose Ql (U) Negative Normal NEG [facility] Comment on above: Performed By: #### Jerel CARR, 3050-0 #### [facility] ([id number]) [address], [address] [place] [address] Ketones Ql (U) Negative Normal NEG [facility] Comment on above: Performed By: #### Jerel CARR, 3050-0 #### [facility] ([id number]) [address], [address] [place] [address] Leukocyte esterase Test strip Ql (U) Trace Abnormal NEG [facility] Comment on above: Performed By: #### Jerel CARR, 3050-0 #### [facility] ([id number]) [address], [address] [place] [address] MUCOUS PRESENT Abnormal NONE [facility] Comment on above: Performed By: #### Jerel CARR, 3050-0 #### [facility] ([id number]) [address], [address] [place] [address] Nitrite Ql (U) Negative Normal NEG [facility] Comment on above: Performed By: #### Jerel CARR, #### [facility] ([id number]) [address], [address] [place] [address] pH (U) 6.5 [pH] Normal 5.0-8.5 [facility] Comment on above: Performed By: #### Jerel CARR, #### [facility] ([id number]) [address], [address] [place] [address] Protein Ql (U) Negative Normal NEG [facility] Comment on above: Performed By: #### Jerel CARR, #### [facility] ([id number]) [address], [address] [place] [address] R.B.CELLS 1 /hpf Normal 0-5 [facility] Comment on above: Performed By: #### Jerel CARR, 0 #### [facility] ([id number]) [address] [place] [address] Specific gravity (U) [Rel density] 1.009 Normal 1.003-1.035 [facility] Comment on above: Performed By: #### Jerel CARR, 0 #### [facility] ([id number]) [address], [address] [place] [address] SQUAMOUS EPITHELIUM 2 /hpf Normal 0-5 [facility] Comment on above: Performed By: #### Jerel CARR, 0 #### [facility] ([id number]) [address], [address] [place] [address] TURBIDITY CLEAR Normal CLEAR [facility] Comment on above: Performed By: #### Jerel CARR, 0 #### [facility] ([id number]) [address], [address] [place] [address] Urobilinogen (U) [Mass/Vol] mg/dL Normal <1.1 [facility] Comment on above: Performed By: #### Jerel CARR, 3050 #### [facility] ([id number]) [address], [address] [place] [address] W.B.CELLS 4 /hpf Normal 0-5 [facility] Comment on above: Performed By: #### Jerel CARR, #### [facility] ([id number]) [address] [address] [place] [address] Vitamin D+Metabolites [Mass/ Vol]on 02-03-2024 VITAMIN D 25 HYD TOT 37.9 ng/mL Normal 30-100 [facility] Comment on above: Result Comment: Vitamin D status 25 [place] Vitamin D Deficiency <20 ng/mL Insufficiency 20-29 ng/mL Sufficiency 30-100 ng/mL Toxicity >100 ng/mL NOTE: A pediatric reference range has not been established by the pole maker of this kit. The [employer] recommends a Vitamin D level of = or >20ng/mL in infants and children. Performed By: #### C BC, C34, 1751-7, BMP, 81667-4, 2777-1, 2731-8, 07178-5 #### [facility] ([id number]) [address] [place] [address] FREE T3on 12-02-2023 Free T3 [Mass/Vol] 2.55 pg/mL Normal 2.50-3.90 [facility] Comment on above: Performed By: #### Jerel CARR, 0 #### [facility] ([id number]) [address], [address] [place] [address] THYROID PROFILEon 12-02-2023 Free T4 [Mass/Vol] 0.96 ng/dL Normal 0.61-1.60 [facility] Comment on above: Performed By: #### T BRUNO, 3051-0 #### [facility] ([id number]) [address] [place] [address] TSH 0.97 uIU/mL Normal 0.49-4.67 [facility] Comment on above: Performed By: #### T BRUNO, 3051-0 #### [facility] ([id number]) [address], [address] [place] [address] GLYCOHEMOGLOBIN A1Con 2021 ADA RECOMMENDATION SEE BELOW Normal [facility] Comment on above: Result Comment: ADA RECOMMENDED LIMIT 4.0 - 6.0 ADA THERAPEUTIC TARGET < 7.0 ACTION SUGGESTED > 7.0 Performed By: #### A 1C #### [facility] [address] [address] [address] Landen Valentino Glucose [Mass/Vol] 137 mg/dL Normal [facility] Comment on above: Performed By: #### A 1C #### [facility] [address] [address] [address] Landen Valentino HbA1c (Bld) [Mass fraction] 6.4 % Critically high 4.5-6.2 [facility] Comment on above: Performed By: #### A 1C #### [facility] [address] [address] [address] Landen Valentino Physician Referralon 021 Physician Referral [phone] [id number] Normal [facility] Vital Signs Date Time Vital Sign Value Performing Clinician Alcon cohen 10-10-2024 10:20-0500 Body height 160 cm Dick Villegas DPM Work Phone: [facility] 10-10-2024 10:20-0500 Body mass index (BMI) [Ratio] 55.98 kg/m2 Dick Villegas DPM Work Phone: [facility] 10-10-2024 10:20-0500 Body weight 143.34 kg Dick Villegas DPM Work Phone: [facility] 09-19-2024 10:36-0500 Body height 160 cm Ovidio Bills MD Work Phone: [facility] 09-19-2024 10:36-0500 Body mass index (BMI) [Ratio] 55.98 kg/m2 Ovidio Bills MD Work Phone: [facility] 09-19-2024 10:36-0500 Body temperature 97.3 [degF] Ovidio Bills MD Work Phone: [facility] 09-19-2024 10:36-0500 Body weight 143.34 kg Ovidio Bills MD Work Phone: [facility] 09-19-2024 10:36-0500 Diastolic blood pressure 60 mm[Hg] Ovidio Bills MD Work Phone: [facility] 09-19-2024 10:36-0500 Heart rate 93 /min Ovidio Bills MD Work Phone: [facility] 09-19-2024 10:36-0500 Respiratory rate 22 /min Ovidio Bills MD Work Phone: [facility] 09-19-2024 10:36-0500 SaO2% (BldA) [Mass fraction] 88 % Ovidio Bills MD Work Phone: [facility] 09-19-2024 10:36-0500 Systolic blood pressure 142 mm[Hg] Ovidio Bills MD Work Phone: [facility] 08-17-2024 09:56-0500 Body height 160 cm Choco Vasquez CLARIFIER Work Phone: [facility] 08-17-2024 09:56-0500 Diastolic blood pressure 72 mm[Hg] Choco Vasquez CLARIFIER Work Phone: [facility] 08-17-2024 09:56-0500 Heart rate 75 /min Choco Vasquez CLARIFIER Work Phone: [facility] 08-17-2024 09:56-0500 Systolic blood pressure 137 mm[Hg] Choco Vasquez CLARIFIER Work Phone: [facility] 06-09-2024 15:18-0400 Body height 160 cm Ovidio Bills MD Work Phone: [facility] 06-09-2024 15:18-0400 Body mass index (BMI) [Ratio] 57.39 kg/m2 Ovidio Bills MD Work Phone: [facility] 06-09-2024 15:18-0400 Body temperature 97.11 [degF] Ovidio Bills MD Work Phone: [facility] 06-09-2024 15:18-0400 Body weight 146.97 kg Ovidio Bills MD Work Phone: [facility] 06-09-2024 15:18-0400 Diastolic blood pressure 60 mm[Hg] Ovidio Bills MD Work Phone: [facility] 06-09-2024 15:18-0400 Heart rate 96 /min Ovidio Bills MD Work Phone: [facility] 06-09-2024 15:18-0400 Respiratory rate 20 /min Ovidio Bills MD Work Phone: [facility] 06-09-2024 15:18-0400 SaO2% (BldA) [Mass fraction] 93 % Ovidio Bills MD Work Phone: [facility] 06-09-2024 15:18-0400 Systolic blood pressure 134 mm[Hg] Ovidio Bills MD Work Phone: [facility] 05-30-2024 15:13-0400 Diastolic blood pressure 76 mm[Hg] Parth Agus DO Work Phone: [facility] 05-30-2024 15:13-0400 Heart rate 90 /min Parth Agus DO Work Phone: [facility] 05-30-2024 15:13-0400 SaO2% (BldA) [Mass fraction] 90 % Parth Agus DO Work Phone: [facility] 05-30-2024 15:13-0400 Systolic blood pressure 154 mm[Hg] Parth Agus DO Work Phone: [facility] 05-10-2024 12:57-0400 Body height 160 cm Dick Villegas DPM Work Phone: [facility] 05-10-2024 12:57-0400 Body mass index (BMI) [Ratio] 60.05 kg/m2 Dick Villegas DPM Work Phone: [facility] 05-10-2024 12:57-0400 Body weight 153.77 kg Dick Villegas DPM Work Phone: [facility] 04-29-2024 10:59-0400 Body height 160 cm Ovidio Bills MD Work Phone: [facility] 04-29-2024 10:59-0400 Body mass index (BMI) [Ratio] 60.05 kg/m2 Ovidio Bills MD Work Phone: [facility] 04-29-2024 10:59-0400 Body temperature 97.5 [degF] Ovidio Bills MD Work Phone: [facility] 04-29-2024 10:59-0400 Body weight 153.77 kg Ovidio Bills MD Work Phone: [facility] 04-29-2024 10:59-0400 Diastolic blood pressure 68 mm[Hg] Ovidio Bills MD Work Phone: [facility] 04-29-2024 10:59-0400 Heart rate 90 /min Ovidio Bills MD Work Phone: [facility] 04-29-2024 10:59-0400 Respiratory rate 24 /min Ovidio Bills MD Work Phone: [facility] 04-29-2024 10:59-0400 SaO2% (BldA) [Mass fraction] 90 % Ovidio Bills MD Work Phone: [facility] 04-29-2024 10:59-0400 Systolic blood pressure 164 mm[Hg] Ovidio Bills MD Work Phone: [facility] Encounters Encounter Date Encounter Type Care Provider Facility Start: 10-10-2024 End: 10-10-2024 Bamboo flowsheet Dick Villegas DPM Work Phone: [facility] Start: 10-10-2024 End: 10-10-2024 Bamboo flowsheet Dick Villegas DPM Work Phone: [facility] Start: 10-10-2024 End: 10-10-2024 Patient encounter procedure Dick Villegas DPM Work Phone: [facility] Comment on above: Dermatophytosis of n ail (Primary Dx); Dystrophic nail; Diabetic polyneuropathy associated with type 2 diabetes mellitus (CMS/HCC); Type II diabetes mellitus with peripheral circulatory disorder ([facility]); Chronic venous insufficiency Start: 10-10-2024 End: 10-10-2024 ambulatory DICK VILLEGAS Not Available Start: 09-19-2024 End: 09-19-2024 Bamboo flowsheet Ovidio Bills MD Work Phone: [facility] Start: 09-19-2024 End: 09-19-2024 Bamboo flowsheet Ovidio Bills MD Work Phone: [facility] Start: 09-19-2024 End: 09-19-2024 Office outpatient visit 25 minutes Ovidio Bills MD Work Phone: [facility] Comment on above: Type 2 diabetes kaylie [...] (BMI) of 50.0 to 59.9 in adult ([facility]); Stage 3b chronic kidney disease (CKD) ([facility]); Type 2 diabetes mellitus with diabetic chronic kidney disease ([facility]) Start: 09-19-2024 End: 09-19-2024 ambulatory OVIDIO BILLS Not Available Start: 09-05-2024 End: 09-05-2024 ambulatory OVIDIO BILLS [facility] Start: 08-25-2024 End: 08-25-2024 Refill Ovidio Bills MD Work Phone: [facility] Comment on above: Shortness of breath; Fibromyalgia Start: 08-23-2024 End: 08-23-2024 Refill Ovidio Bills MD Work Phone: [facility] Comment on above: Shortness of breath (Primary Dx); Fibromyalgia Start: 08-17-2024 End: 08-17-2024 Bamboo flowsheet Choco Vasquez CLARIFIER Work Phone: [facility] Start: 08-17-2024 End: 08-17-2024 Bamboo flowsheet Choco Vasquez CLARIFIER Work Phone: [facility] Start: 08-17-2024 End: 08-17-2024 Office outpatient visit 25 minutes Choco Vasquez CLARIFIER Work Phone: [facility] Comment on above: ETIENNE (obstructive sle ep apnea) (Primary Dx); Hypoxia; Hypersomnia; Generalized anxiety disorder ([facility]); Major depressive disorder, recurrent episode, mild (HCC) ([facility]) Start: 08-17-2024 End: 08-17-2024 ambulatory CHOCO VASQUEZ Not Available Start: 07-26-2024 End: 07-26-2024 Refill Ovidio Bills MD Work Phone: [facility] Comment on above: Fibromyalgia Start: 07-13-2024 End: 07-13-2024 Bamboo flowsheet Fabian Dos Santos CLARIFIER Work Phone: [facility] Start: 07-13-2024 [...] End: 07-04-2024 Telephone encounter Emily Nunez MA [facility] [address] Start: 06-28-2024 End: 06-29-2024 Refill [...] microalbuminuria, without long-term current use of insulin ([facility]); Primary insomnia Start: 06-09-2024 End: 06-09-2024 ambulatory [...] 45 minutes Parth Agus DO Work Phone: [facility] [address] [address] Comment on above: Primary insomnia (Pr imary Dx); ETIENNE (obstructive sleep apnea); Hypoxia; Sleep disturbance; Hypersomnia; Snoring Start: 05-30-2024 End: 05-30-2024 ambulatory PARTHKELVIN GOLDSMITH Not Available Start: 05-30-2024 End: 05-30-2024 Bamboo flowsheet Parth Agus DO Work Phone: [facility] [address] Start: 05-30-2024 End: 05-30-2024 Bamboo flowsheet Parth [facility] DO [facility] [place] [address] Start: 05-10-2024 End: 05-10-2024 Bamboo flowsheet Dick Villegas DPM Work Phone: [facility] Start: 05-10-2024 End: 05-10-2024 Bamboo flowsheet Dick Villegas DPM Work Phone: [facility] Start: 05-10-2024 End: 05-10-2024 Patient encounter procedure Dick Villegas DPM Work Phone: [facility] Comment on above: Dermatophytosis of n ail (Primary Dx); Dystrophic nail; Diabetic polyneuropathy associated with type 2 diabetes mellitus ([facility]/HCC); Chronic venous insufficiency Start: 05-10-2024 End: 05-10-2024 [...] 04-07-2024 Emergency department patient visit OVIDIO BILLS [facility] Start: 03-23-2024 End: 03-23-2024 ambulatory OVIDIO BILLS [facility] Start: 02-29-2024 End: 02-29-2024 ambulatory OVIDIO BILLS Not Available Start: 02-03-2024 End: 02-03-2024 ambulatory JOHN HARRIS [facility] Start: 01-06-2024 End: 01-06-2024 ambulatory DICK VILLEGAS Not Available Start: 12-04-2023 End: 12-04-2023 ambulatory OVIDIO BILLS Not Available Start: 12-02-2023 End: 12-02-2023 ambulatory OVIDIO BILLS [facility] Start: 11-04-2023 End: 11-04-2023 ambulatory DICK VILLEGAS Not Available Start: 10-14-2023 End: 10-14-2023 ambulatory MARK Rocha PRAMOD [facility] Start: 09-30-2023 End: 09-30-2023 ambulatory MARK BENAVIDEZ [facility] Start: 09-25-2023 End: 10-08-2023 ambulatory MARK BENAVIDEZ [facility] Start: 09-11-2023 End: 09-11-2023 ambulatory MARK BENAVIDEZ [facility] Start: 07-14-2022 End: 07-15-[address] OVIDIO BILLS Facility:[facility]1 Start: 12-03-[address] SERA GOLDEN Facility:[facility] Procedures Date Procedure Procedure Detail Performing Clinician Start: 07-13-2024 Arthrocentesis aspir &/inj major jt/bursa w/o us Fabian T Rosemarie SANCHEZ Work Phone: Plan of Treatment Date Care Activity Detail Author Start: 12-13-2025 Glaucoma screening Diabetes: R etinopathy Screening [facility] Start: 09-05-2025 Urine screening for protein Diabetes: Urine Protein Screening [facility] Start: 06-09-2025 Medicare Annual Wellness (AWV) Medicare Annual Wellness (AWV) [facility] Start: 03-06-2025 Hemoglobin A1c measurement Diabetes: Hemoglobin A1C [facility] Start: 02-02-2025 Urine screening for protein Diabetes: Urine Protein Screening [facility] Start: 02-01-2025 End: 02-01-2025 Patient encounter procedure 02/01/2025 10:30 AM EDT Procedure Visit [facility] [address] [place] [phone] Dick Villegas DPM [address] [place] [address] [facility] Start: 12-12-2024 End: 12-12-2024 Patient encounter procedure 12/12/2024 10:15 AM EDT [facility] [address] [place] [address] Ovidio Bills MD [address] [place] [phone] [facility] Start: 12-04-2024 Hemoglobin A1c measurement Diabetes: Hemoglobin A1C [facility] Start: 11-16-2024 End: 11-16-2024 Patient encounter procedure [facility] [place] [facility] Start: 10-10-2024 End: 10-10-2024 Patient encounter procedure 10/10/2024 10:45 AM EST Procedure Visit [facility] [address] [place] [address] Dick Villegas, DPShahida [address] [place] [address] Arrived [facility] Comment on above: Arrived Start: 09-21-2024 End: 09-21-2024 Patient encounter procedure 09/21/2024 3:30 PM EST Procedure Visit [facility] [address] [place] [address] Dick Villegas DPM [address] [place] [address] [facility] Start: 09-19-2024 End: 09-19-2024 Patient encounter procedure 09/19/2024 10:30 AM EST Office Visit [facility] [address] [place] [address] Ovidio Bills MD [address] [place] [phone] Arrived [facility] Comment on above: Arrived Start: 09-13-2024 End: 01-07-2025 Patient encounter procedure 09/13/2024 3:00 PM EST Office Visit [facility] [address] [place] [address] Ovidio Bills MD [address] [place] [address] [facility] Start: 08-24-2024 End: 08-24-2024 Patient encounter procedure 08/24/2024 3:30 PM EST Procedure Visit [facility] [address] [place] [phone] Dick Villegas, DP [address] [place], [place] [phone] [facility] Start: 08-17-2024 End: 08-17-2024 Patient encounter procedure 08/17/2024 10:00 AM EST Office Visit [facility] [address] [place] [address] Choco Vasquez NP [address] [place] [address] Arrived [facility] Comment on above: Arrived Start: 08-15-2024 End: 08-15-2024 Patient encounter procedure [facility] Start: 07-27-2024 End: 07-27-2024 Patient encounter procedure 07/27/2024 9:20 AM EST Office Visit [facility] [place] [address] [place] [address] Choco Vasquez NP [address] [place], [place] [facility] [place] [address] Start: 07-26-2024 End: 07-26-2024 Patient encounter procedure 07/26/2024 4:00 PM EST Office Visit [facility] [place] [address] [place] [address] Choco Vasquez NP [address] [place] [facility] [place] [facility] Start: 07-13-2024 End: 07-13-2024 Patient encounter procedure 07/13/2024 9:15 AM EST Office Visit [facility] [address] [place] [address] Fabian Dos Santos, CLARIFIER [address] [place], [place] [id number] Left knee pain, unspecified chronicity [facility] Comment on above: Left knee pain, unsp ecified chronicity Start: 07-06-2024 End: 07-06-2024 Patient encounter procedure 07/06/2024 9:15 AM EDT Office Visit [facility] [address] [place] [address] Fabian Dos Santos, LAURA [address] [place], [place] [phone] [facility] Start: 06-09-2024 End: 06-09-2024 Patient encounter procedure [facility] Comment on above: Arrived Start: 06-03-2024 End: 06-03-2024 Patient encounter procedure [facility] Comment on above: Arrived Start: 05-30-2024 End: 05-30-2024 [facility] on above: Arrived Start: 05-10-2024 End: 05-10-2024 Patient encounter procedure [facility] Comment on above: Arrived Start: 05-08-2024 Influenza vaccination Influenza Vacc ine (#1) [facility] Start: 04-29-2024 End: 04-29-2024 Patient encounter procedure 04/29/2024 10:45 AM EDT Office Visit [facility] [address] [place] [phone] vOidio Bills MD [address] [place] [phone] Arrived [facility] Comment on above: [...] Payer Medicare HU[employer]NA MEDICARE ADVANTAGE HU[employer]NA MEDICARE [id number] 2020-Present [address] [place] [id number] [id number] 2020 Medicare (Managed Care) HUMANA M EDICARE ADVANTAGE [id number] 2017 Medicaid [id number]. [id number] 1959 Medicaid [id number] 1959 Medicare [id number] 1948 Unknown [id number] 2.16840.1.980862.3.579.2. 593 1948 Unknown [id number] 2.16840.1.290439.3.579.2. 593 1948 Unknown [id number] 2.16.840.1.218475.3.579.2. 1286 1948 Unknown [id number] 2.16.840.1.741355.3.579.2. 1286 1948 Unknown [id number] 2.16.840.1.774655.3.579.2. 1286 1948 Unknown [id number] 2.16.840.1.751709.3.579.2. 128 1948 Unknown [id number] 2.16.840.1.374418.3.579.2. 128 1948 Unknown [id number] 2.840.1.581427.3.579.2. 128 1948 Unknown [id number] 2.840.1.411319.3.579.2. 128 1948 Unknown [id number] 2.840.1.041854.3.579.2. 128 1948 Unknown [id number] 2.840.1.411224.3.579.2. 128 1948 Unknown [id number] 2..840.1.378886.3.579.2. 9 1948 Unknown [id number] 2.840.1.584536.3.579.2. 1259 1948 Unknown [id number] 2.16.840.1.017521.3.579.2. 1259 1948 Unknown [id number] 2.16.840.1.263700.3.579.2. 125 1948 Unknown [id number] 2.16.840.1.776008.3.579.2. 9 1948 Unknown [id number] 2.16.840.1.728072.3.579.2. 125 1948 Unknown [id number] 2.16.840.1.343572.3.579.2. 1258 1948 Unknown [id number] 2.16.840.1.794339.3.579.2. 9 1948 Unknown [id number] 2.16.840.1.608692.3.579.2. 1258 1948 Unknown [id number] 2.16.840.1.958754.3.579.2. 1258 1948 Unknown [id number] 2.16.840.1.705645.3.579.2. 1258 1948 Unknown [id number] 2.16.840.1.503635.3.579.2. 1258 1948 Unknown [id number] 2.16.840.1.069681.3.579.2. 1259 Social History Date Type Detail Facility Start: 08-24-2023 Tobacco smoking stat [facility] Never smoked tobacco [facility] Start: 08-24-2023 Tobacco use and exposure Smoke less tobacco non-user [facility] Start: 05-30-2024 End: 10-10-2024 Alcoholic beverage intake Lifetime non-drinker (finding) [facility] Start: 05-30-2024 End: 06-09-2024 History of Social function [facility] Start: 05-30-2024 End: 06-09-2024 Tobacco use panel [facility] Start: 07-21-2023 Alcohol Comment Caffeine intak e: 2-3 cups per day [facility] Start: 1950 Sex assigned at Not on file [facility] Medical Equipment Procedure Code Equipment Code Equipment Origin al Text Equipment Identifier Dates 1 each by Other route Daily [id number] Start: 11-16-2023 1 each by Other route Daily [id number] Start: 11-16-2023 Use as instructed [id number] Start: 09-01-2024 Clinical Notes 04-29-2024 to 10-10-2024 [...] 30 tablet, Rfl: 11 Blood Glucose Calibration (Clean Mobile Control Solution) High solution, 1 each by Other route Daily, Disp: 1 each, Rfl: 0 Blood Glucose Monitoring Suppl (Clean Mobile Autocode Blood Glucose) w/Device kit, 1 each [...] Disp: 180 tablet, Rfl: 3 glucose blood (Clean Mobile No Coding Blood Gluc) test strip, 1 each by Other route Daily, Disp: 200 strip, Rfl: 3 glucose blood (True Metrix Blood Glucose Test) test strip, Use as instructed, Disp: 100 strip, Rfl: 3 HYDROcodone-acetaminophen ([place]) 5-325 MG tablet, Take 1 tablet by [...] AGO ROTATOR CUFF REPAIR Left 2011 in [place] THYROIDECTOMY 2008 TOTAL KNEE ARTHROPLASTY 2011 Family [...] Dick Villegas DPM documented in this encounter [facility] 09-19-2024 History of Presen t illness Narrative Associated Problem(s): Stage 3b chronic kidney disease (CKD) ([facility]) Renal function stable. Associated Problem(s): Type 2 diabetes mellitus with polyneuropathy ([facility]) Neuropathy improved and wean off neurontin. Take BID x 7 days, then at bedtime x 7 days, then stop. Associated Problem(s): Type 2 diabetes mellitus with microalbuminuria, without long-term current use of insulin ([facility]) Reports BS controlled and recent A1C 6.3. [...] (BMI) of 50.0 to 59.9 in adult ([facility]) Weight loss indicated Associated Problem(s): Major depressive disorder, recurrent episode, mild (HCC) ([facility]) Symptoms tolerable with medication and continue. Associated [...] (BMI) of 50.0 to 59.9 in adult ([facility]) Weight loss indicated Primary insomnia Not sleeping well and stop trazodone. Increase doxepin. Relevant Medications mirtazapine (Remeron) 15 MG tablet doxepin (SINEquan) 50 MG capsule Type 2 diabetes mellitus with polyneuropathy ([facility]) Neuropathy improved and wean off neurontin. Take [...] 50 MG tablet documented in this encounter [facility] 07-13-2024 History of Presen t illness Narrative [...] KNEE PAIN FOR YEARS. XRAY 09/28/18 @ [facility] STANDING XR 06/11/18 @ [facility] STEFAN H/O (R) TKA ~20 YRS PER [...] of left lower extremity Cerebrovascular disease Depression ([facility]) Dermatitis DM (diabetes mellitus) ([facility]) diet controlled Fibromyalgia Fibula fracture L leg CHRIS (generalized anxiety disorder) ([facility]) Generalized edema GERD (gastroesophageal reflux disease) History of MRSA infection HTN (hypertension) ([facility]) Hyperlipidemia ([facility] Hypothyroidism ([facility]) Hypothyroidism, postop ([facility]) Insomnia, persistent Leg ulcer ([facility]) Macular degeneration of both eyes, unspecified type Major depressive disorder, recurrent episode, mild ([facility]) ([facility]) Mild intermittent asthma without complication ([facility]) Mixed stress and urge urinary incontinence Obesity Obstructive sleep apnea (NO CPAP REQ) Osteoarthritis Osteoporosis, postmenopausal ([facility]) Polycystic kidney disease just right side Stage 4 CKD Recurrent UTI RLS (restless legs syndrome) SOB (shortness of breath) Stage 3b chronic kidney disease (CKD) ([facility]) Tremor Type 2 diabetes mellitus with hyperglycemia, without long-term current use of insulin ([facility]) PAST SURGICAL HISTORY: Past Surgical History: Procedure [...] AGO ROTATOR CUFF REPAIR Left 2011 in [place] THYROIDECTOMY 2007 TOTAL KNEE ARTHROPLASTY 2010 ALLERGIES: [...] 40 mg, Oral, Daily Blood Glucose Calibration (Clean Mobile Control Solution) High solution 1 each, Other, Daily Blood Glucose Monitoring Suppl (Clean Mobile Autocode Blood Glucose) w/Device kit 1 each, Other, Daily bumetanide (BUMEX) 2 mg, Oral, Daily cholecalciferol (VITAMIN D-3) 2,000 Units, Oral, Daily RT diclofenac sodium (VOLTAREN) 2 g, Topical, 4 times daily PRN doxepin (SINEquan) 10 MG capsule 1-2 po q hs Eliquis 5 mg, Oral, 2 times daily gabapentin (NEURONTIN) 300 mg, Oral, 3 times daily glucose blood (Clean Mobile No Coding Blood Gluc) test strip 1 [...] wheelchair IMAGING: ECG 12 lead PERFORMED AT [facility] LOCATION:[id number] L Inj/Asp: L knee on 07/13/2024 9:19 [...] for requiring urgent evaluation. Fabian Dos Santos APRN-TRACK MAINTAINER documented in this encounter [facility] 07-04-2024 Telephone encount er Note This is totally inappropriate if they had a question they should have called us. Yes we can use them the doxepin is at a very low dose. [facility] 07-04-2024 Miscellaneous Notes Formattin g of this [...] do both medications. documented in this encounter [facility] 07-04-2024 Telephone encount er Note Patient called [...] it is good to do both medications. [facility] 06-28-2024 Telephone encount er Note Can a short supply of Liothyronine be sent to [facility] in [place] please? [facility] 06-28-2024 Miscellaneous Notes Formattin g of this note might be different from the original. Can a short supply of Liothyronine be sent to [facility] in [place] please? documented in this encounter [facility] 06-09-2024 History of Presen t illness Narrative Associated Problem(s): Primary insomnia Not sleeping well and try doxepin as prescribed in addition to seroquel. Associated Problem(s): Type 2 diabetes mellitus with microalbuminuria, without long-term current use of insulin ([facility]) Reports BS improved and due for A1C. [...] microalbuminuria, without long-term current use of insulin ([facility]) Reports BS improved and due for A1C. [...] daily Aspirin therapy. documented in this encounter [facility] 05-30-2024 History of Presen t illness Narrative [...] of left lower extremity Cerebrovascular disease Depression ([facility]) Dermatitis DM (diabetes mellitus) ([facility]) diet controlled Fibromyalgia Fibula fracture L leg CHRIS (generalized anxiety disorder) ([facility]) Generalized edema GERD (gastroesophageal reflux disease) History of MRSA infection HTN (hypertension) ([facility]) Hyperlipidemia ([facility]) Hypothyroidism ([facility]) Hypothyroidism, postop ([facility]) Insomnia, persistent Leg ulcer ([facility]) Macular degeneration of both eyes, unspecified type Major depressive disorder, recurrent episode, mild (HCC) ([facility]) Mild intermittent asthma without complication ([facility]) Mixed stress and urge urinary incontinence Obesity Obstructive sleep apnea (NO CPAP REQ) Osteoarthritis Osteoporosis, postmenopausal ([facility]) Polycystic kidney disease just right side Stage 4 CKD Recurrent UTI RLS (restless legs syndrome) SOB (shortness of breath) Stage 3b chronic kidney disease (CKD) ([facility]) Tremor Type 2 diabetes mellitus with hyperglycemia, without long-term current use of insulin ([facility]) Past Surgical History: Procedure Laterality Date BI [...] AGO ROTATOR CUFF REPAIR Left 2012 in [place] THYROIDECTOMY 2008 TOTAL KNEE ARTHROPLASTY 2011 Family [...] was counseled on the risks of stroke, OR, and sudden with ETIENNE, along with the [...] clinic: 2 months documented in this encounter [facility] 05-10-2024 History of Presen t illness Narrative [...] 30 tablet, Rfl: 11 Blood Glucose Calibration ([employer] Control Solution) High solution, 1 each by Other route Daily, Disp: 1 each, Rfl: 0 Blood Glucose Monitoring Suppl (Clean Mobile Autocode Blood Glucose) w/Device kit, 1 each [...] Disp: 270 capsule, Rfl: 3 glucose blood (Clean Mobile No Coding Blood Gluc) test strip, 1 [...] AGO ROTATOR CUFF REPAIR Left 2011 in [place] THYROIDECTOMY 2008 TOTAL KNEE ARTHROPLASTY 2010 Family [...] Dick Villegas DPM documented in this encounter [facility] 05-10-2024 Instructions Dick Villegas DPM - 05/10/2024 1:00 PM EDT As noted documented in this encounter [facility] 04-29-2024 History of Presen t illness Narrative Associated Problem(s): Obesity, morbid, BMI 50 or higher ([facility]/H[facility]) Weight loss indicated Associated Problem(s): Stage 3b chronic kidney disease (CKD) ([facility]) Renal function stable. Associated Problem(s): Type 2 [...] Items Addressed This Visit Generalized anxiety disorder ([facility]) Symptoms tolerable with medication and continue. Lymphedema Edema worse and stop lasix. Try bumex. Elevate legs PRN. Relevant Medications bumetanide (Bumex) 2 MG tablet Major depressive disorder, recurrent episode, mild (HCC) ([facility]) Symptoms tolerable with medication and continue. Stage 3b chronic kidney disease (CKD) ([facility]) Renal function stable. Type 2 diabetes mellitus with microalbuminuria, without long-term current use of insulin ([facility]) - Primary Reports BS improved and due [...] bed. Obesity, morbid, BMI 50 or higher ([facility]) Weight loss indicated Primary insomnia Not sleeping well with trazodone and stop. Try ambien. Relevant Medications zolpidem (Ambien) 5 MG tablet Type 2 diabetes mellitus with polyneuropathy ([facility]) Continued pain and numbness and continue neurontin. Other Visit Diagnoses Type 2 diabetes mellitus with diabetic chronic kidney disease (HCC) ([facility]) Chronic kidney disease, stage 3a (HCC) ([facility]) Morbid (severe) obesity due to excess calories ([facility]) Body mass index (BMI) 50.0-59.9, adult ([facility]) documented in this encounter [facility] Evaluation note Diagnosis Medicare annual wellness visit, subsequent- Primary 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, without long-term current use of insulin ([facility]) Primary insomnia Persistent disorder of initiating or maintaining sleep documented in this encounter [facility] HealthcareEvaluation note* Diagnosis Type 2 diabetes [...] Bilateral primary osteoarthritis of knee Post-operative hypothyroidism ([facility]) 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, without long-term current use of insulin ([facility]/HCC)- Primary Type 2 diabetes mellitus with polyneuropathy ([facility]) Type II or unspecified type diabetes mellitus with neurological manifestations, not stated as uncontrolled Spondylosis of 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 Cervical spondylosis without myelopathy Major depressive disorder, recurrent episode, mild (HCC) ([facility]) Major depressive disorder, recurrent episode, mild Generalized anxiety disorder ([facility]) Generalized anxiety disorder Primary insomnia Persistent disorder of initiating or maintaining sleep Obstructive sleep apnea (adult) (pediatric) Generalized edema Edema Gastroesophageal reflux disease without esophagitis Esophageal reflux Bilateral primary osteoarthritis of knee Type 2 diabetes mellitus with microalbuminuria, without long-term current use of insulin ([facility])- Primary Type 2 diabetes mellitus with polyneuropathy ([facility]) Type II or unspecified type diabetes mellitus with neurological manifestations, not stated as uncontrolled Spondylosis of 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 Cervical spondylosis without myelopathy Major depressive disorder, recurrent episode, mild (HCC) (CMS/HCC) Major depressive disorder, recurrent episode, mild Generalized anxiety disorder ([facility]/HCC) Generalized anxiety disorder Primary insomnia Persistent disorder of initiating or maintaining sleep Generalized edema Edema Gastroesophageal reflux disease without esophagitis Esophageal reflux Type 2 diabetes mellitus with diabetic chronic kidney disease ([facility]) Chronic kidney disease, stage 3b (HCC) ([facility]) Morbid (severe) obesity due to excess calories ([facility]) Body mass index (BMI) 60.0-69.9, adult ([facility]) Type 2 diabetes mellitus with microalbuminuria, without long-term current use of insulin ([facility])- Primary Lymphedema Other noninfectious lymphedema Type 2 diabetes mellitus with polyneuropathy ([facility]) Type II or unspecified type diabetes mellitus with neurological manifestations, not stated as uncontrolled Spondylosis of 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 Major depressive disorder, recurrent episode, mild (HCC) ([facility]) Major depressive disorder, recurrent episode, mild Generalized anxiety disorder ([facility]) Generalized anxiety disorder Primary insomnia Persistent disorder of initiating or maintaining sleep Type 2 diabetes mellitus with diabetic chronic kidney disease ([facility]) Chronic kidney disease, stage 3a (HCC) ([facility]) Morbid (severe) obesity due to excess calories ([facility]) Body mass index (BMI) 50.0-59.9, adult ([facility]) Stage 3b chronic kidney disease (CKD) ([facility]) Obesity, morbid, BMI 50 or higher ([facility]) Medicare annual wellness visit, subsequent- Primary 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, without long-term current use of insulin ([facility]) Primary insomnia Persistent disorder of initiating or maintaining sleep Post-operative hypothyroidism ([facility]) Postsurgical hypothyroidism documented in this encounter [facility] HealthcareEvaluation note* Diagnosis Type 2 diabetes mellitus with microalbuminuria, without long-term current use of insulin ([facility])- Primary Major depressive disorder, recurrent episode, mild (HCC) ([facility]) Major depressive disorder, recurrent episode, mild Generalized anxiety disorder ([facility]) Generalized anxiety disorder Spondylosis of 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 Cervical spondylosis without myelopathy Primary insomnia Persistent disorder of initiating or maintaining sleep Restless legs Restless legs syndrome (RLS) Generalized edema Edema Gastroesophageal reflux disease without esophagitis Esophageal reflux Bilateral primary osteoarthritis of knee Post-operative hypothyroidism ([facility]) 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, without long-term current use of insulin ([facility])- Primary Type 2 diabetes mellitus with polyneuropathy ([facility]) Type II or unspecified type diabetes mellitus with neurological manifestations, not stated as uncontrolled Spondylosis of 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 Cervical spondylosis without myelopathy Major depressive disorder, recurrent episode, mild (HCC) ([facility]) Major depressive disorder, recurrent episode, mild Generalized anxiety disorder ([facility]) Generalized anxiety disorder Primary insomnia Persistent disorder of initiating or maintaining sleep Obstructive sleep apnea (adult) (pediatric) Generalized edema Edema Gastroesophageal reflux disease without esophagitis Esophageal reflux Bilateral primary osteoarthritis of knee Type 2 diabetes mellitus with microalbuminuria, without long-term current use of insulin ([facility])- Primary Type 2 diabetes mellitus with polyneuropathy ([facility]) Type II or unspecified type diabetes mellitus with neurological manifestations, not stated as uncontrolled Spondylosis of 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 Cervical spondylosis without myelopathy Major depressive disorder, recurrent episode, mild (HCC) ([facility]) Major depressive disorder, recurrent episode, mild Generalized anxiety disorder ([facility]) Generalized anxiety disorder Primary insomnia Persistent disorder of initiating or maintaining sleep Generalized edema Edema Gastroesophageal reflux disease without esophagitis Esophageal reflux Type 2 diabetes mellitus with diabetic chronic kidney disease ([facility]) Chronic kidney disease, stage 3b (HCC) ([facility]) Morbid (severe) obesity due to excess calories ([facility]) Body mass index (BMI) 60.0-69.9, adult ([facility]) Type 2 diabetes mellitus with microalbuminuria, without long-term current use of insulin ([facility])- Primary Lymphedema Other noninfectious lymphedema Type 2 diabetes mellitus with polyneuropathy ([facility]) Type II or unspecified type diabetes mellitus with neurological manifestations, not stated as uncontrolled Spondylosis of 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 Major depressive disorder, recurrent episode, mild (HCC) ([facility]) Major depressive disorder, recurrent episode, mild Generalized anxiety disorder ([facility]) Generalized anxiety disorder Primary insomnia Persistent disorder of initiating or maintaining sleep Type 2 diabetes mellitus with diabetic chronic kidney disease ([facility]) Chronic kidney disease, stage 3a (HCC) ([facility]) Morbid (severe) obesity due to excess calories ([facility]) Body mass index (BMI) 50.0-59.9, adult ([facility]) Stage 3b chronic kidney disease (CKD) ([facility]) Obesity, morbid, BMI 50 or higher ([facility]) Medicare annual wellness visit, subsequent- Primary 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, without long-term current use of insulin ([facility]) Primary insomnia Persistent disorder of initiating or maintaining sleep Primary insomnia Persistent disorder of initiating or maintaining sleep documented in this encounter [facility] HealthcareEvaluation note* Diagnosis Type 2 diabetes mellitus with microalbuminuria, without long-term current use of insulin ([facility])- Primary Major depressive disorder, recurrent episode, mild (HCC) ([facility]/HCC) Major depressive disorder, recurrent episode, mild Generalized anxiety disorder ([facility]/HCC) Generalized anxiety disorder Spondylosis of 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 Cervical spondylosis without myelopathy Primary insomnia Persistent disorder of initiating or maintaining sleep Restless legs Restless legs syndrome (RLS) Generalized edema Edema Gastroesophageal reflux disease without esophagitis Esophageal reflux Bilateral primary osteoarthritis of knee Post-operative hypothyroidism ([facility]) 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, without long-term current use of insulin ([facility])- Primary Type 2 diabetes mellitus with polyneuropathy ([facility]) Type II or unspecified type diabetes mellitus with neurological manifestations, not stated as uncontrolled Spondylosis of 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 Cervical spondylosis without myelopathy Major depressive disorder, recurrent episode, mild (HCC) ([facility]) Major depressive disorder, recurrent episode, mild Generalized anxiety disorder ([facility]) Generalized anxiety disorder Primary insomnia Persistent disorder of initiating or maintaining sleep Obstructive sleep apnea (adult) (pediatric) Generalized edema Edema Gastroesophageal reflux disease without esophagitis Esophageal reflux Bilateral primary osteoarthritis of knee Type 2 diabetes mellitus with microalbuminuria, without long-term current use of insulin ([facility])- Primary Type 2 diabetes mellitus with polyneuropathy ([facility]) Type II or unspecified type diabetes mellitus with neurological manifestations, not stated as uncontrolled Spondylosis of 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 Cervical spondylosis without myelopathy Major depressive disorder, recurrent episode, mild (HCC) ([facility]) Major depressive disorder, recurrent episode, mild Generalized anxiety disorder ([facility]) Generalized anxiety disorder Primary insomnia Persistent disorder of initiating or maintaining sleep Generalized edema Edema Gastroesophageal reflux disease without esophagitis Esophageal reflux Type 2 diabetes mellitus with diabetic chronic kidney disease ([facility]) Chronic kidney disease, stage 3b (HCC) ([facility]) Morbid (severe) obesity due to excess calories ([facility]) Body mass index (BMI) 60.0-69.9, adult ([facility]) Type 2 diabetes mellitus with microalbuminuria, without long-term current use of insulin ([facility])- Primary Lymphedema Other noninfectious lymphedema Type 2 diabetes mellitus with polyneuropathy ([facility]) Type II or unspecified type diabetes mellitus with neurological manifestations, not stated as uncontrolled Spondylosis of 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 Major depressive disorder, recurrent episode, mild (HCC) ([facility]) Major depressive disorder, recurrent episode, mild Generalized anxiety disorder ([facility]) Generalized anxiety disorder Primary insomnia Persistent disorder of initiating or maintaining sleep Type 2 diabetes mellitus with diabetic chronic kidney disease ([facility]) Chronic kidney disease, stage 3a (HCC) ([facility]) Morbid (severe) obesity due to excess calories ([facility]) Body mass index (BMI) 50.0-59.9, adult ([facility]) Stage 3b chronic kidney disease (CKD) ([facility]) Obesity, morbid, BMI 50 or higher ([facility]) Medicare annual wellness visit, subsequent- Primary 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, without long-term current use of insulin ([facility]) Primary insomnia Persistent disorder of initiating or maintaining sleep Primary osteoarthritis of left knee- Primary Left knee pain, unspecified chronicity documented in this encounter [facility] HealthcareEvaluation note* Diagnosis Type 2 diabetes mellitus with microalbuminuria, without long-term current use of insulin ([facility])- Primary Major depressive disorder, recurrent episode, mild (HCC) ([facility]) Major depressive disorder, recurrent episode, mild Generalized anxiety disorder ([facility]) Generalized anxiety disorder Spondylosis of 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 Cervical spondylosis without myelopathy Primary insomnia Persistent disorder of initiating or maintaining sleep Restless legs Restless legs syndrome (RLS) Generalized edema Edema Gastroesophageal reflux disease without esophagitis Esophageal reflux Bilateral primary osteoarthritis of knee Post-operative hypothyroidism ([facility]) 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, without long-term current use of insulin ([facility])- Primary Type 2 diabetes mellitus with polyneuropathy ([facility]) Type II or unspecified type diabetes mellitus with neurological manifestations, not stated as uncontrolled Spondylosis of 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 Cervical spondylosis without myelopathy Major depressive disorder, recurrent episode, mild (HCC) ([facility]) Major depressive disorder, recurrent episode, mild Generalized anxiety disorder ([facility]) Generalized anxiety disorder Primary insomnia Persistent disorder of initiating or maintaining sleep Obstructive sleep apnea (adult) (pediatric) Generalized edema Edema Gastroesophageal reflux disease without esophagitis Esophageal reflux Bilateral primary osteoarthritis of knee Type 2 diabetes mellitus with microalbuminuria, without long-term current use of insulin ([facility])- Primary Type 2 diabetes mellitus with polyneuropathy ([facility]) Type II or unspecified type diabetes mellitus with neurological manifestations, not stated as uncontrolled Spondylosis of 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 Cervical spondylosis without myelopathy Major depressive disorder, recurrent episode, mild (HCC) ([facility]) Major depressive disorder, recurrent episode, mild Generalized anxiety disorder ([facility]) Generalized anxiety disorder Primary insomnia Persistent disorder of initiating or maintaining sleep Generalized edema Edema Gastroesophageal reflux disease without esophagitis Esophageal reflux Type 2 diabetes mellitus with diabetic chronic kidney disease ([facility]) Chronic kidney disease, stage 3b (HCC) ([facility]) Morbid (severe) obesity due to excess calories ([facility]) Body mass index (BMI) 60.0-69.9, adult ([facility]) Type 2 diabetes mellitus with microalbuminuria, without long-term current use of insulin ([facility])- Primary Lymphedema Other noninfectious lymphedema Type 2 diabetes mellitus with polyneuropathy ([facility]) Type II or unspecified type diabetes mellitus with neurological manifestations, not stated as uncontrolled Spondylosis of 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 Major depressive disorder, recurrent episode, mild (HCC) ([facility]) Major depressive disorder, recurrent episode, mild Generalized anxiety disorder ([facility]) Generalized anxiety disorder Primary insomnia Persistent disorder of initiating or maintaining sleep Type 2 diabetes mellitus with diabetic chronic kidney disease ([facility]) Chronic kidney disease, stage 3a (HCC) ([facility]) Morbid (severe) obesity due to excess calories ([facility]) Body mass index (BMI) 50.0-59.9, adult ([facility]) Stage 3b chronic kidney disease (CKD) ([facility]) Obesity, morbid, BMI 50 or higher ([facility]) Medicare annual wellness visit, subsequent- Primary 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, without long-term current use of insulin ([facility]) Primary insomnia Persistent disorder of initiating or maintaining sleep Fibromyalgia Unspecified myalgia and myositis documented in this encounter [facility] HealthcareEvaluation note* Diagnosis Type 2 diabetes mellitus with microalbuminuria, without long-term current use of insulin ([facility])- Primary Major depressive disorder, recurrent episode, mild (HCC) ([facility]) Major depressive disorder, recurrent episode, mild Generalized anxiety disorder ([facility]) Generalized anxiety disorder Spondylosis of 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 Cervical spondylosis without myelopathy Primary insomnia Persistent disorder of initiating or maintaining sleep Restless legs Restless legs syndrome (RLS) Generalized edema Edema Gastroesophageal reflux disease without esophagitis Esophageal reflux Bilateral primary osteoarthritis of knee Post-operative hypothyroidism ([facility]) 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, without long-term current use of insulin ([facility])- Primary Type 2 diabetes mellitus with polyneuropathy ([facility]) Type II or unspecified type diabetes mellitus with neurological manifestations, not stated as uncontrolled Spondylosis of 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 Cervical spondylosis without myelopathy Major depressive disorder, recurrent episode, mild (HCC) ([facility]) Major depressive disorder, recurrent episode, mild Generalized anxiety disorder ([facility]) Generalized anxiety disorder Primary insomnia Persistent disorder of initiating or maintaining sleep Obstructive sleep apnea (adult) (pediatric) Generalized edema Edema Gastroesophageal reflux disease without esophagitis Esophageal reflux Bilateral primary osteoarthritis of knee Type 2 diabetes mellitus with microalbuminuria, without long-term current use of insulin ([facility])- Primary Type 2 diabetes mellitus with polyneuropathy ([facility]) Type II or unspecified type diabetes mellitus with neurological manifestations, not stated as uncontrolled Spondylosis of 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 Cervical spondylosis without myelopathy Major depressive disorder, recurrent episode, mild (HCC) ([facility]) Major depressive disorder, recurrent episode, mild Generalized anxiety disorder ([facility]) Generalized anxiety disorder Primary insomnia Persistent disorder of initiating or maintaining sleep Generalized edema Edema Gastroesophageal reflux disease without esophagitis Esophageal reflux Type 2 diabetes mellitus with diabetic chronic kidney disease ([facility]) Chronic kidney disease, stage 3b (HCC) ([facility]) Morbid (severe) obesity due to excess calories ([facility]) Body mass index (BMI) 60.0-69.9, adult ([facility]) Type 2 diabetes mellitus with microalbuminuria, without long-term current use of insulin ([facility])- Primary Lymphedema Other noninfectious lymphedema Type 2 diabetes mellitus with polyneuropathy ([facility]) Type II or unspecified type diabetes mellitus with neurological manifestations, not stated as uncontrolled Spondylosis of 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 Major depressive disorder, recurrent episode, mild (HCC) ([facility]) Major depressive disorder, recurrent episode, mild Generalized anxiety disorder ([facility]) Generalized anxiety disorder Primary insomnia Persistent disorder of initiating or maintaining sleep Type 2 diabetes mellitus with diabetic chronic kidney disease ([facility]/HCC) Chronic kidney disease, stage 3a (HCC) ([facility]) Morbid (severe) obesity due to excess calories ([facility]) Body mass index (BMI) 50.0-59.9, adult ([facility]) Stage 3b chronic kidney disease (CKD) ([facility]) Obesity, morbid, BMI 50 or higher ([facility]) Medicare annual wellness visit, subsequent- Primary 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, without long-term current use of insulin ([facility]) Primary insomnia Persistent disorder of initiating or maintaining sleep ETIENNE (obstructive sleep apnea)- Primary Obstructive sleep apnea (adult) (pediatric) Hypoxia Hypoxemia Hypersomnia Hypersomnia, unspecified Generalized anxiety disorder ([facility]) Generalized anxiety disorder Major depressive disorder, recurrent episode, mild (HCC) ([facility]) Major depressive disorder, recurrent episode, mild documented in this encounter [facility]* Diagnosis Type 2 diabetes mellitus with microalbuminuria, without long-term current use of insulin ([facility])- Primary Major depressive disorder, recurrent episode, mild (HCC) ([facility]) Major depressive disorder, recurrent episode, mild Generalized anxiety disorder ([facility]) Generalized anxiety disorder Spondylosis of 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 Cervical spondylosis without myelopathy Primary insomnia Persistent disorder of initiating or maintaining sleep Restless legs Restless legs syndrome (RLS) Generalized edema Edema Gastroesophageal reflux disease without esophagitis Esophageal reflux Bilateral primary osteoarthritis of knee Post-operative hypothyroidism ([facility]) 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, without long-term current use of insulin ([facility])- Primary Type 2 diabetes mellitus with polyneuropathy ([facility]) Type II or unspecified type diabetes mellitus with neurological manifestations, not stated as uncontrolled Spondylosis of 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 Cervical spondylosis without myelopathy Major depressive disorder, recurrent episode, mild (HCC) ([facility]) Major depressive disorder, recurrent episode, mild Generalized anxiety disorder ([facility]) Generalized anxiety disorder Primary insomnia Persistent disorder of initiating or maintaining sleep Obstructive sleep apnea (adult) (pediatric) Generalized edema Edema Gastroesophageal reflux disease without esophagitis Esophageal reflux Bilateral primary osteoarthritis of knee Type 2 diabetes mellitus with microalbuminuria, without long-term current use of insulin ([facility])- Primary Type 2 diabetes mellitus with polyneuropathy ([facility]) Type II or unspecified type diabetes mellitus with neurological manifestations, not stated as uncontrolled Spondylosis of 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 Cervical spondylosis without myelopathy Major depressive disorder, recurrent episode, mild (HCC) ([facility]) Major depressive disorder, recurrent episode, mild Generalized anxiety disorder ([facility]) Generalized anxiety disorder Primary insomnia Persistent disorder of initiating or maintaining sleep Generalized edema Edema Gastroesophageal reflux disease without esophagitis Esophageal reflux Type 2 diabetes mellitus with diabetic chronic kidney disease ([facility]) Chronic kidney disease, stage 3b (HCC) ([facility]) Morbid (severe) obesity due to excess calories ([facility]) Body mass index (BMI) 60.0-69.9, adult ([facility]) Type 2 diabetes mellitus with microalbuminuria, without long-term current use of insulin ([facility])- Primary Lymphedema Other noninfectious lymphedema Type 2 diabetes mellitus with polyneuropathy ([facility]) Type II or unspecified type diabetes mellitus with neurological manifestations, not stated as uncontrolled Spondylosis of 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 Major depressive disorder, recurrent episode, mild (HCC) ([facility]) Major depressive disorder, recurrent episode, mild Generalized anxiety disorder ([facility]) Generalized anxiety disorder Primary insomnia Persistent disorder of initiating or maintaining sleep Type 2 diabetes mellitus with diabetic chronic kidney disease ([facility]) Chronic kidney disease, stage 3a (HCC) ([facility]) Morbid (severe) obesity due to excess calories ([facility]) Body mass index (BMI) 50.0-59.9, adult ([facility]) Stage 3b chronic kidney disease (CKD) ([facility]) Obesity, morbid, BMI 50 or higher ([facility]) Medicare annual wellness visit, subsequent- Primary 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, without long-term current use of insulin ([facility]) Primary insomnia Persistent disorder of initiating or maintaining sleep Shortness of breath- Primary Fibromyalgia Unspecified myalgia and myositis documented in this encounter [facility]* Diagnosis Type 2 diabetes mellitus with microalbuminuria, without long-term current use of insulin ([facility])- Primary Lymphedema Other noninfectious lymphedema Type 2 diabetes mellitus with polyneuropathy ([facility]) Type II or unspecified type diabetes mellitus with neurological manifestations, not stated as uncontrolled Spondylosis of 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 Major depressive disorder, recurrent episode, mild (HCC) ([facility]) Major depressive disorder, recurrent episode, mild Generalized anxiety disorder ([facility]) Generalized anxiety disorder Primary insomnia Persistent disorder of initiating or maintaining sleep Type 2 diabetes mellitus with diabetic chronic kidney disease (HCC) ([facility]) Chronic kidney disease, stage 3a (HCC) ([facility]) Morbid (severe) obesity due to excess calories ([facility]) Body mass index (BMI) 50.0-59.9, adult ([facility]) Stage 3b chronic kidney disease (CKD) ([facility]) Obesity, morbid, BMI 50 or higher ([facility]) documented in this encounter [facility]* Diagnosis Dermatophytosis of nail- Primary Dystrophic nail Other specified disease of nail Diabetic polyneuropathy associated with type 2 diabetes mellitus ([facility]) Chronic venous insufficiency Unspecified venous (peripheral) insufficiency [...] microalbuminuria, without long-term current use of insulin ([facility])- Primary Major depressive disorder, recurrent episode, mild (HCC) ([facility]) Major depressive disorder, recurrent episode, mild Generalized anxiety disorder ([facility]) Generalized anxiety disorder Spondylosis of 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 Cervical spondylosis without myelopathy Primary insomnia Persistent disorder of initiating or maintaining sleep Restless legs Restless legs syndrome (RLS) Generalized edema Edema Gastroesophageal reflux disease without esophagitis Esophageal reflux Bilateral primary osteoarthritis of knee Post-operative hypothyroidism ([facility]) 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, without long-term current use of insulin ([facility])- Primary Type 2 diabetes mellitus with polyneuropathy ([facility]) Type II or unspecified type diabetes mellitus with neurological manifestations, not stated as uncontrolled Spondylosis of 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 Cervical spondylosis without myelopathy Major depressive disorder, recurrent episode, mild (HCC) ([facility]) Major depressive disorder, recurrent episode, mild Generalized anxiety disorder ([facility]) Generalized anxiety disorder Primary insomnia Persistent disorder of initiating or maintaining sleep Obstructive sleep apnea (adult) (pediatric) Generalized edema Edema Gastroesophageal reflux disease without esophagitis Esophageal reflux Bilateral primary osteoarthritis of knee Type 2 diabetes mellitus with microalbuminuria, without long-term current use of insulin ([facility])- Primary Type 2 diabetes mellitus with polyneuropathy ([facility]) Type II or unspecified type diabetes mellitus with neurological manifestations, not stated as uncontrolled Spondylosis of 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 Cervical spondylosis without myelopathy Major depressive disorder, recurrent episode, mild (HCC) ([facility]) Major depressive disorder, recurrent episode, mild Generalized anxiety disorder ([facility]) Generalized anxiety disorder Primary insomnia Persistent disorder of initiating or maintaining sleep Generalized edema Edema Gastroesophageal reflux disease without esophagitis Esophageal reflux Type 2 diabetes mellitus with diabetic chronic kidney disease ([facility]) Chronic kidney disease, stage 3b (HCC) ([facility]) Morbid (severe) obesity due to excess calories ([facility]) Body mass index (BMI) 60.0-69.9, adult ([facility]) Type 2 diabetes mellitus with microalbuminuria, without long-term current use of insulin ([facility])- Primary Lymphedema Other noninfectious lymphedema Type 2 diabetes mellitus with polyneuropathy ([facility]) Type II or unspecified type diabetes mellitus with neurological manifestations, not stated as uncontrolled Spondylosis of 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 Major depressive disorder, recurrent episode, mild (HCC) ([facility]) Major depressive disorder, recurrent episode, mild Generalized anxiety disorder ([facility]) Generalized anxiety disorder Primary insomnia Persistent disorder of initiating or maintaining sleep Type 2 diabetes mellitus with diabetic chronic kidney disease ([facility]) Chronic kidney disease, stage 3a (HCC) ([facility]) Morbid (severe) obesity due to excess calories ([facility]) Body mass index (BMI) 50.0-59.9, adult ([facility]) Stage 3b chronic kidney disease (CKD) ([facility]) Obesity, morbid, BMI 50 or higher ([facility]) Medicare annual wellness visit, subsequent- Primary 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, without long-term current use of insulin ([facility]) Primary insomnia Persistent disorder of initiating or maintaining sleep Shortness of breath Fibromyalgia Unspecified myalgia and myositis documented in this encounter [facility]* Diagnosis Type 2 diabetes mellitus with microalbuminuria, without long-term current use of insulin ([facility])- Primary Major depressive disorder, recurrent episode, mild (HCC) ([facility]/HCC) Major depressive disorder, recurrent episode, mild Generalized anxiety disorder (CMS/HCC) Generalized anxiety disorder Spondylosis of 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 Cervical spondylosis without myelopathy Primary insomnia Persistent disorder of initiating or maintaining sleep Restless legs Restless legs syndrome (RLS) Generalized edema Edema Gastroesophageal reflux disease without esophagitis Esophageal reflux Bilateral primary osteoarthritis of knee Post-operative hypothyroidism ([facility]) 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, without long-term current use of insulin ([facility])- Primary Type 2 diabetes mellitus with polyneuropathy ([facility]) Type II or unspecified type diabetes mellitus with neurological manifestations, not stated as uncontrolled Spondylosis of 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 Cervical spondylosis without myelopathy Major depressive disorder, recurrent episode, mild (HCC) ([facility]) Major depressive disorder, recurrent episode, mild Generalized anxiety disorder ([facility]) Generalized anxiety disorder Primary insomnia Persistent disorder of initiating or maintaining sleep Obstructive sleep apnea (adult) (pediatric) Generalized edema Edema Gastroesophageal reflux disease without esophagitis Esophageal reflux Bilateral primary osteoarthritis of knee Type 2 diabetes mellitus with microalbuminuria, without long-term current use of insulin ([facility])- Primary Type 2 diabetes mellitus with polyneuropathy ([facility]) Type II or unspecified type diabetes mellitus with neurological manifestations, not stated as uncontrolled Spondylosis of 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 Cervical spondylosis without myelopathy Major depressive disorder, recurrent episode, mild (HCC) ([facility]) Major depressive disorder, recurrent episode, mild Generalized anxiety disorder ([facility]) Generalized anxiety disorder Primary insomnia Persistent disorder of initiating or maintaining sleep Generalized edema Edema Gastroesophageal reflux disease without esophagitis Esophageal reflux Type 2 diabetes mellitus with diabetic chronic kidney disease ([facility]) Chronic kidney disease, stage 3b (HCC) ([facility]) Morbid (severe) obesity due to excess calories ([facility]) Body mass index (BMI) 60.0-69.9, adult ([facility]) Type 2 diabetes mellitus with microalbuminuria, without long-term current use of insulin ([facility])- Primary Lymphedema Other noninfectious lymphedema Type 2 diabetes mellitus with polyneuropathy ([facility]/HCC) Type II or unspecified type diabetes mellitus with neurological manifestations, not stated as uncontrolled Spondylosis of 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 Major depressive disorder, recurrent episode, mild (HCC) ([facility]) Major depressive disorder, recurrent episode, mild Generalized anxiety disorder (CMS/HCC) Generalized anxiety disorder Primary insomnia Persistent disorder of initiating or maintaining sleep Type 2 diabetes mellitus with diabetic chronic kidney disease ([facility]) Chronic kidney disease, stage 3a (HCC) ([facility]) Morbid (severe) obesity due to excess calories ([facility]) Body mass index (BMI) 50.0-59.9, adult ([facility]) Stage 3b chronic kidney disease (CKD) ([facility]) Obesity, morbid, BMI 50 or higher ([facility]) Medicare annual wellness visit, subsequent- Primary 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, without long-term current use of insulin ([facility]) Primary insomnia Persistent disorder of initiating or maintaining sleep Type 2 diabetes mellitus with microalbuminuria, without long-term current use of insulin ([facility])- Primary Spondylosis of 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 Major depressive disorder, recurrent episode, mild (HCC) ([facility]) Major depressive disorder, recurrent episode, mild Generalized anxiety disorder ([facility]) Generalized anxiety disorder Primary insomnia Persistent disorder of initiating or maintaining sleep Type 2 diabetes mellitus with polyneuropathy ([facility]) Type II or unspecified type diabetes mellitus with neurological manifestations, not stated as uncontrolled Lymphedema Other noninfectious lymphedema Acute non-recurrent pansinusitis Class 3 severe obesity due to excess calories with serious comorbidity and body mass index (BMI) of 50.0 to 59.9 in adult ([facility]) Stage 3b chronic kidney disease (CKD) ([facility] Type 2 diabetes mellitus with diabetic chronic kidney disease ([facility]) documented in this encounter [facility]* Diagnosis Type 2 diabetes mellitus with microalbuminuria, without long-term current use of insulin ([facility])- Primary Major depressive disorder, recurrent episode, mild (HCC) ([facility]) Major depressive disorder, recurrent episode, mild Generalized anxiety disorder ([facility]) Generalized anxiety disorder Spondylosis of 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 Cervical spondylosis without myelopathy Primary insomnia Persistent disorder of initiating or maintaining sleep Restless legs Restless legs syndrome (RLS) Generalized edema Edema Gastroesophageal reflux disease without esophagitis Esophageal reflux Bilateral primary osteoarthritis of knee Post-operative hypothyroidism ([facility]/HCC) 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, without long-term current use of insulin ([facility])- Primary Type 2 diabetes mellitus with polyneuropathy ([facility]) Type II or unspecified type diabetes mellitus with neurological manifestations, not stated as uncontrolled Spondylosis of 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 Cervical spondylosis without myelopathy Major depressive disorder, recurrent episode, mild (HCC) ([facility]/HCC) Major depressive disorder, recurrent episode, mild Generalized anxiety disorder ([facility]) Generalized anxiety disorder Primary insomnia Persistent disorder of initiating or maintaining sleep Obstructive sleep apnea (adult) (pediatric) Generalized edema Edema Gastroesophageal reflux disease without esophagitis Esophageal reflux Bilateral primary osteoarthritis of knee Type 2 diabetes mellitus with microalbuminuria, without long-term current use of insulin ([facility])- Primary Type 2 diabetes mellitus with polyneuropathy ([facility]) Type II or unspecified type diabetes mellitus with neurological manifestations, not stated as uncontrolled Spondylosis of 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 Cervical spondylosis without myelopathy Major depressive disorder, recurrent episode, mild (HCC) ([facility]) Major depressive disorder, recurrent episode, mild Generalized anxiety disorder ([facility]) Generalized anxiety disorder Primary insomnia Persistent disorder of initiating or maintaining sleep Generalized edema Edema Gastroesophageal reflux disease without esophagitis Esophageal reflux Type 2 diabetes mellitus with diabetic chronic kidney disease ([facility]/HCC) Chronic kidney disease, stage 3b (HCC) [facility] [facility]) Morbid (severe) obesity due to excess calories ([facility]) Body mass index (BMI) 60.0-69.9, adult ([facility]) Type 2 diabetes mellitus with microalbuminuria, without long-term current use of insulin ([facility])- Primary Lymphedema Other noninfectious lymphedema Type 2 diabetes mellitus with polyneuropathy ([facility]) Type II or unspecified type diabetes mellitus with neurological manifestations, not stated as uncontrolled Spondylosis of 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 Major depressive disorder, recurrent episode, mild (HCC) ([facility]) Major depressive disorder, recurrent episode, mild Generalized anxiety disorder ([facility]) Generalized anxiety disorder Primary insomnia Persistent disorder of initiating or maintaining sleep Type 2 diabetes mellitus with diabetic chronic kidney disease ([facility]) Chronic kidney disease, stage 3a (HCC) ([facility]) Morbid (severe) obesity due to excess calories ([facility]) Body mass index (BMI) 50.0-59.9, adult ([facility]) Stage 3b chronic kidney disease (CKD) ([facility]) Obesity, morbid, BMI 50 or higher ([facility]) Medicare annual wellness visit, subsequent- Primary 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, without long-term current use of insulin ([facility]) Primary insomnia Persistent disorder of initiating or maintaining sleep Type 2 diabetes mellitus with microalbuminuria, without long-term current use of insulin ([facility])- Primary Spondylosis of 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 Major depressive disorder, recurrent episode, mild ([facility]) ([facility]) Major depressive disorder, recurrent episode, mild Generalized anxiety disorder ([facility]) Generalized anxiety disorder Primary insomnia Persistent disorder of initiating or maintaining sleep Type 2 diabetes mellitus with polyneuropathy ([facility]) Type II or unspecified type diabetes mellitus with neurological manifestations, not stated as uncontrolled Lymphedema Other noninfectious lymphedema Acute non-recurrent pansinusitis Class 3 severe obesity due to excess calories with serious comorbidity and body mass index (BMI) of 50.0 to 59.9 in adult ([facility]) Stage 3b chronic kidney disease (CKD) ([facility]) Type 2 diabetes mellitus with diabetic chronic kidney disease ([facility]) Dermatophytosis of nail- Primary Dystrophic nail Other specified disease of nail Diabetic polyneuropathy associated with type 2 diabetes mellitus ([facility]) Type II diabetes mellitus with peripheral circulatory disorder ([facility]) Type II or unspecified type diabetes mellitus [...] and content) DATE CREATED AUTHOR 09/25/2021 [facility] DATE CREATED AUTHOR AUTHOR'S ORGANIZ ATION 07/19/2022 [facility] DATE CREATED AUTHOR AUTHOR'S ORGANIZ ATION 09/06/2024 [facility] DATE CREATED AUTHOR AUTHOR'S ORGANIZ ATION 10/11/2024 [facility] d[facility] Special[facility] EPIC Care Teams (unrecognized sec tion and content) [employer] Relationship Specialty Start Date End Date Ovidio Bills MD [address] [place] [phone] PCP - General Family Medicine 11/04/23 [employer] Relationship Specialty Start Date End Date Ovidio Bills MD [address] [place] [phone] PCP - General Family Medicine 11/04/23 [employer] Farmworker Relationship Specialty Start Date End Date Ovidio Bills MD [address] [place] [phone] PCP - General Family Medicine 11/04/23 [employer] Farmworker Relationship Specialty Start Date End Date Ovidio Bills MD [address] [place] [phone] PCP - General Family Medicine 11/04/23 [employer] Farmworker Relationship Specialty Start Date End Date Ovidio Bills MD [address] [place] [phone] PCP - General Family Medicine 11/04/23 [employer] Farmworker Relationship Specialty Start Date End Date Ovidio Bills MD [address] [place] [phone] PCP - General Family Medicine 11/04/23 [employer] Farmworker Relationship Specialty Start Date End Date Ovidio Bills MD [address] [place] [phone] PCP - General Family Medicine 11/04/23 [employer] Farmworker Relationship Specialty Start Date End Date Ovidio Bills MD [address] [place] [address] PCP - General Family Medicine 11/04/23 [employer] Farmworker Relationship Specialty Start Date End Date Ovidio Bills MD [address] [place] [address] PCP - General Family Medicine 11/04/23 [employer] Farmworker Relationship Specialty Start Date End Date Ovidio Bills MD [address] [place] [address] PCP - General Family Medicine 11/04/23 [employer] Farmworker Relationship Specialty Start Date End Date Ovidio Bills MD [address] [place] [address] PCP - General Family Medicine 11/04/23 [employer] Farmworker Relationship Specialty Start Date End Date Ovidio Bills MD [address] [place] [address] PCP - General Family Medicine 11/04/23 [employer] Farmworker Relationship Specialty Start Date End Date Ovidio Bills MD [address] [place] [address] PCP - General Family Medicine 11/04/23 [employer] Farmworker Relationship Specialty Start Date End Date Ovidio Bills MD [address] [place] [address] PCP - General Family Medicine 11/04/23 [employer] Farmworker Relationship Specialty Start Date End Date Ovidio Bills MD [address] [place] [phone] PCP - General Family Medicine 11/04/23 [employer] Farmworker Relationship Specialty Start Date End Date Ovidio Bills MD [address] [place] [phone] PCP - General Family Medicine 11/04/23 [employer] Farmworker Relationship Specialty Start Date End Date Ovidio Bills MD [address] [place] [phone] PCP - General Family Medicine 11/04/23 [employer] Farmworker Relationship Specialty Start Date End Date Ovidio Bills MD [address] [place] [phone] PCP - General Family Medicine 11/04/23 Reason [...] BE BASED ON THE PRIMARY CLINICAL RECORDS. [facility] provides no warranty or guarantee of the accuracy or completeness of information in this document.
[2024-11-08 20:47] LABS: Glucometer 110 mg/dL (74-106)
[2024-11-08] MEDS: ATORVASTATIN CALCIUM 40 MG TABLET PO (22:18)
[2024-11-08] MEDS: PAROXETINE HCL 20 MG TABLET PO (22:18)
[2024-11-08] MEDS: DOXEPIN HCL 10 MG CAPSULE 20 MG PO (22:18)
[2024-11-08] MEDS: QUETIAPINE FUMARATE 25 MG TABLET 50 MG PO (22:18)
[2024-11-08] MEDS: MIRTAZAPINE 15 MG TABLET PO (22:18)
[2024-11-08] MEDS: APIXABAN 5 MG TABLET PO (22:19)
[2024-11-08] MEDS: ROPINIROLE HCL 1 MG TABLET 5 MG PO (22:19)
[2024-11-09] VITALS (13 sets, daily range): BP systolic 118–126; BP diastolic 67–82; PULSE 71–95; TEMP 36.5–36.9; O2SAT 84–93
[2024-11-09] MEDS: LACTATED RINGER'S SOLUTION 1,000 ML 50 ML IV (01:01)
[2024-11-09 05:35] LABS: Basophils Percent Auto 0.8 % (0.2-2.0); Eosinophils Absolute Auto 0.3 10^3/uL (0.0-0.7); Eosinophils Percent Auto 5.4 % (0.9-7.0); Hematocrit 41.5 % (36.0-48.0); Hemoglobin 12.2 g/dL (12.0-16.0); Immature Granulocytes Abs Auto 0.01 10^3/uL (0.00-0.03); Immature Granulocytes Pct Auto 0.2 % (0.0-0.5); Lymphocytes Absolute Auto 1.7 10^3/uL (1.2-3.8); Lymphocytes Percent Auto 32.2 % (20.5-60.0); Mean Corpuscular HGB Conc 29.4 g/dL (29.9-35.2); Mean Corpuscular Hemoglobin 24.6 pg (26.7-34.0); Mean Corpuscular Volume 83.8 fL (81.0-99.0); Mean Platelet Volume 11.6 fL (9.5-13.5); Monocytes Absolute Auto 0.4 10^3/uL (0.3-0.8); Monocytes Percent Auto 8.3 % (1.7-12.0); Neutrophils Absolute Auto 2.8 10^3/uL (1.4-6.5); Neutrophils Percent Auto 53.1 % (43.0-75.0); Platelet Count 136 10^3/uL (150-450); Red Blood Count 4.95 10^6/uL (4.20-5.40); Red Cell Distribution Width 17.2 % (11.0-15.0); White Blood Count 5.2 10^3/uL (4.0-11.0)
[2024-11-09] MEDS: OMEPRAZOLE 40 MG CAPSULE.DR PO (05:35)
[2024-11-09] MEDS: LEVOTHYROXINE SODIUM 100 MCG TABLET 300 MCG PO (05:35)
[2024-11-09] MEDS: HYDROCODONE/ACET 5-325 MG TABLET 1 TAB PO ×2 (05:37→13:21)
[2024-11-09 05:53] LABS: Anion Gap 8.4; Calcium 8.1 mg/dL (8.5-10.1); Carbon Dioxide 33.9 mmol/L (21.0-32.0); Chloride 108 mmol/L (98-107); Estimated GFR (African America 38 (>=60 mL/min/1.73m^2); Estimated GFR (Non-African Ame 32 (>=60 mL/min/1.73m^2); Glucose 105 mg/dL (74-106); Potassium 4.3 mmol/L (3.5-5.1); Sodium 146 mmol/L (136-145)
--- NOTE | 2024-11-09 07:07 | P.HP_ITS ---
HPI H&P: HPI History of Present Illness Chief complaint: dizziness, uti hypoxia Narrative: Patient was seen and evaluated emergency room secondary to dizziness, found to have acute acute UTI was given antibiotics and fluids and the plan was to discharge her to home however her hypoxia did worsen and her ability to ambulate worsened so she was admitted to observation overnight Opioid HPI Opioid Management Most Recent Pain and Opioid Data: Last Pain Scale 5 11/09/24 14:40 11/09/24 Last Pain Assessment 11/09/24 14:40 Last MAR Pain Assessment 11/09/24 13:21 Last ORT Total Score 1 11/08/24 20:08 11/08/24 Last ORT Risk Category Low Risk 11/08/24 20:08 11/08/24 Review of Systems ROS Status of ROS 10 or more systems reviewed and unremark able except as noted in history and below [facility] Medical History (Updated 11/08/24 @ 20:41 by Lexi Kathleen) Stage 4 chronic kidney disease ?N18.4 - Chronic kidney disease, stage 4 (severe) (ICD-10) Fibromyalgia ?M79.7 - Fibromyalgia (ICD-10) Macular degeneration ?H35.30 - Unspecified macular degeneration (ICD-10) Arthritis ?M19.90 - Unspecified osteoarthritis, unspecified site (ICD-10) Hypothyroid ?E03.9 - Hypothyroidism, unspecified (ICD-10) GERD (gastroesophageal reflux disease) ?K21.9 - Gastro-esophageal reflux disease without esophagitis (ICD-10) Diabetes mellitus ?E11.9 - Type 2 diabetes mellitus without complications (ICD-10) Restless leg syndrome ?G25.81 - Restless legs syndrome (ICD-10) TIA (transient ischemic attack) ?G45.9 - Transient cerebral ischemic attack, unspecified (ICD-10) Surgical History (Updated 11/08/24 @ 20:42 by Lexi Kathleen) H/O: hysterectomy ?Z90.710 - Acquired absence of both cervix and uterus (ICD-10) History of cholecystectomy ?Z90.49 - Acquired absence of other specified parts of digestive tract (ICD- 10) Status post right knee replacement ?Z96.651 - Presence of right artificial knee joint (ICD-10) H/O thyroidectomy ?Z98.890 - Other specified postprocedural states (ICD-10) ?Z90.89 - Acquired absence of other organs (ICD-10) Family History (Updated 11/08/24 @ 20:44 by Lexi Kathleen) Father Family history of CHF (congestive heart failure) Family history of myocardial infarction Brother Family history of COPD (chronic obstructive pulmonary disease) Family history of cancer Family history of diabetes mellitus Family history of hypertension Family history of stroke Son Family history of cancer Mother Family history of diabetes mellitus Family history of hypertension Family history of myocardial infarction Social History (Updated 11/08/24 @ 20:45 by Lexi Kathleen) Within the past year, how often did you have a drink containing alcohol: never Score interpretation: A score less than 3 is consistent with normal alcohol consumption. Smoking status: Never smoker Non-prescribed substance use: cannabis (any form) Non-prescribed substance use details: valentin with md permission Previous occupational history: retired Highest level of school completed/degree received: high school graduate Are you now , , , , never or living with a partner: In a typical week, how many times do you talk on the telephone with family, friends, or neighbors: 3 or more times per week How often do you get together with friends or relatives: twice per week How often do you attend orthodoxy or gnosticist services: never Little interest or pleasure in doing things: not at all Feeling down, depressed, or hopeless: not at all Feel stressed/tense/nervous/anxious/difficulty sleeping: only a little Do you think of yourself as: straight/heterosexual Gender Identity: female Meds Home Medications and Allergies Home Medications ?Medication ?Instructions ?Recorded ?Confirmed ?Type apixaban 5 mg tablet (Eliquis) 5 mg PO BID 11/08/24 11/08/24 History atorvastatin 40 mg tablet 40 mg PO .QHS 11/08/24 11/08/24 History blood sugar diagnostic (True 11/08/24 11/08/24 History Metrix Glucose Test Strip) blood-glucose meter (Prodigy 11/08/24 11/08/24 History Autocode Meter kit) bumetanide 2 mg tablet 2 mg PO DAILY 11/08/24 11/08/24 History calcitriol 0.25 mcg capsule 0.25 mcg PO DAILY 11/08/24 11/08/24 History cephalexin 500 mg capsule 500 mg PO Q8H 7 days #21 caps 11/08/24 Rx cholecalciferol (vitamin D3) 1,250 1,250 mcg PO .QMONTH 11/08/24 11/08/24 History mcg (50,000 unit) capsule cranberry 500 mg capsule 500 mg PO DAILY 11/08/24 11/08/24 History doxepin 10 mg capsule 20 mg PO .QHS 11/08/24 11/08/24 History hydrocodone 5 mg-acetaminophen 325 1 tab PO TID PRN pain 11/08/24 11/08/24 History mg tablet lancets 28 gauge (Prodigy Twist 11/08/24 11/08/24 History Top Lancet) levothyroxine 300 mcg tablet 300 mcg PO .ACB 11/08/24 11/08/24 History liothyronine 5 mcg tablet 5 mcg PO .noon 11/08/24 11/08/24 History meclizine 25 mg chewable tablet 25 mg PO QID PRN dizziness #12 tabs 11/08/24 Rx (Antivert) mirtazapine 15 mg tablet 15 mg PO .QHS 11/08/24 11/08/24 History nitrofurantoin 100 mg PO DAILY 11/08/24 11/08/24 History monohydrate/macrocrystals 100 mg capsule omeprazole 40 mg capsule,delayed 40 mg PO .ACB 11/08/24 11/08/24 History release ondansetron 4 mg disintegrating 4 mg PO Q6H PRN nausea and 11/08/24 Rx tablet vomiting #12 tabs paroxetine HCl 20 mg tablet 20 mg PO .QHS 11/08/24 11/08/24 History quetiapine 50 mg tablet 50 mg PO .QHS 11/08/24 11/08/24 History ropinirole 5 mg tablet 5 mg PO TID 11/08/24 11/08/24 History semaglutide 1 mg/dose (4 mg/3 mL) 1 mg subcut QWEEK 11/08/24 11/08/24 History subcutaneous pen injector (Ozempic) tizanidine 4 mg tablet 4 mg PO TID PRN muscle spasticity 11/08/24 11/08/24 History cefdinir 300 mg capsule 600 mg (2 x 300 mg) PO DAILY #20 11/09/24 Rx caps Allergies Allergy/AdvReac Type Severity Reaction Status Date / Time sertraline (From Zoloft) AdvReac Severe Confusion Verified 11/08/24 11:30 Tetanus Vaccines and Toxoid AdvReac Intermediate swollen arm Verified 11/08/24 11:30 metformin AdvReac Mild Abdominal Verified 11/08/24 11:30 Pain Exam Constitutional Vital Signs, click to edit/add: Last Vital Signs Temp 97.7 F 11/09/24 03:16 Pulse 85 11/09/24 05:35 Resp 18 11/09/24 03:16 BP 125/73 11/09/24 03:16 Pulse Ox 93 L 11/09/24 03:16 O2 Del Method Room Air 11/09/24 03:16 O2 Flow Rate 2 11/09/24 00:00 Documenting provider has reviewed patient's vital signs: yes Common normals: no apparent distress Respiratory Common normals: normal respiratory effort and no retractions Cardio Common normals: regular rate and regular rhythm GI Common normals: Normal to inspection, nondistended, normoactive bowel sounds present Common normals: no CVA tenderness Results Labs Labs: Short CBC 11/08/24 11/09/24 Range/Units 12:05 05:30 WBC 6.1 5.2 (4.0-11.0) 10^3/uL Hgb 14.0 12.2 (12.0-16.0) g/dL Hct 46.8 41.5 (36.0-48.0) % Plt Count 130 L 136 L (150-450) 10^3/uL BMP 11/08/24 11/09/24 12:05 05:30 Sodium 142 146 H Potassium 3.9 4.3 Chloride 103 108 H Carbon Dioxide 32.0 33.9 H BUN 35.0 H 35.0 H Creatinine 1.67 H 1.59 H Glucose 151 H 105 Calcium 8.5 8.1 L Liver Function 11/08/24 Range/Units 12:05 Total Bilirubin 0.5 (0.2-1.0) mg/dL AST 19 (15-37) U/L ALT 21 (14-59) U/L Alkaline Phosphatase 150 H (46-116) U/L Albumin 3.6 (3.4-5.0) g/dL Urine 11/08/24 Range/Units 13:35 Urine Color Lt. yellow (YELLOW) Urine Clarity Clear (CLEAR) Urine pH 5.5 (5.0-9.0) Ur Specific [place] 1.020 (1.005-1.025) Urine Protein Negative (NEG/TRACE) mg/dL Urine Glucose (UA) Negative (NEGATIVE) mg/dL ABG ABG results: 11/08/24 12:05 VBG pH 7.346 VBG pCO2 56.2 H Assessment and Plan Assessment and Plan (1) Hypoxia: (2) Acute UTI: (3) Nausea & vomiting: Plan Admission findings: Hypoxia, positive UA Acute UTI with dehydration-so far this morning feels much improved, back to her baseline, if remains stable this morning she will be discharged to home in improving condition. Medications see list. Follow-up with her PCP within the next week. Chronic hypoxia patient states he runs in the upper 80s but is not on supplemental oxygen Hypercholesterolemia continue with home medications General Anxiety disorder continue with home medications Hypothyroidism continue with home medications Admission status: Patient placed in observation bed secondary to the dehydration and acute UTI, is much improved this morning likely discharge to home will maintain observation
--- NOTE | 2024-11-09 08:53 | CM.NOTE ---
Rounds made with Dr. Peña, pt verbalizes feeling much better today. Discussed with pt findings and discharge plan. Pt will discharge to home today and f/u with PCP.
--- NOTE | 2024-11-09 08:56 | P.DS_ITS ---
DS: Providers Provider Date of admission: 11/08/24 19:52 Primary care physician: Lilly Figueroa DO Consults: 11/08/24 14:49 Consult to Pharmacy Routine Consulting Provider: Reason for consultation: Please [place] me when Med Rec is Updated Has provider been notified: No Occupational Therapy Eval and Treat Routine Reason for consultation: Only if needed for Rehab Has provider been notified: No Physical Therapy Eval and Treat Routine Reason for consultation: Eval and Treat Has provider been notified: No DS: Diagnosis Discharge Diagnosis (1) Hypoxia: (2) Acute UTI: Plan Admission findings: Hypoxia, positive UA Acute UTI with dehydration-so far this morning feels much improved, back to her baseline, if remains stable this morning she will be discharged to home in improving condition. Medications see list. Follow-up with her PCP within the next week. Chronic hypoxia patient states he runs in the upper 80s but is not on supplemental oxygen Hypercholesterolemia continue with home medications General Anxiety disorder continue with home medications Hypothyroidism continue with home medications Admission status: Patient placed in observation bed secondary to the dehydration and acute UTI, is much improved this morning likely discharge to home will maintain observation DS: Summary Hospital Course Hospital Course: Patient seen and evaluated emergency room with dizziness nausea vomiting found of acute UTI also mild hypoxia which patient refuses to be treated at home, with the weakness and UTI she was unsafe for discharge, she was placed in observation status IV hydration and IV antibiotics overnight, she is much improved this morning and will be discharged to home in improving condition. Medications to this. Follow-up with her PCP within the next week. Status at Discharge Overall status at discharge: patient is not back to baseline Time Spent with Patient Time attestation: Total time spent providing and/or coordinating discharge services: Time spent: greater than 30 minutes Exam Constitutional Vital Signs, click to edit/add: Last Vital Signs Temp 98 F 11/09/24 07:54 Pulse 87 11/09/24 07:55 Resp 18 11/09/24 07:54 BP 122/69 11/09/24 07:54 Pulse Ox 84 L 11/09/24 07:54 O2 Del Method Room Air 11/09/24 07:54 O2 Flow Rate 2 11/09/24 00:00 Documenting provider has reviewed patient's vital signs: yes Common normals: no apparent distress Respiratory Common normals: normal respiratory effort and no retractions Cardio Common normals: regular rate and regular rhythm GI Common normals: Normal to inspection, nondistended, normoactive bowel sounds present Common normals: no CVA tenderness DS: Data Data Completed and Pending Labs on day of discharge: Labs from last 24 hours 11/09/24 11/08/24 11/08/24 05:30 20:46 13:35 WBC 5.2 RBC 4.95 Hgb 12.2 Hct 41.5 MCV 83.8 MCH 24.6 L MCHC 29.4 L RDW 17.2 H Plt Count 136 L MPV 11.6 Neut % (Auto) 53.1 Lymph % (Auto) 32.2 Wirt % (Auto) 8.3 Eos % (Auto) 5.4 Baso % (Auto) 0.8 Neut # (Auto) 2.8 Lymph # (Auto) 1.7 Wirt # (Auto) 0.4 Eos # (Auto) 0.3 Baso # (Auto) 0.0 Abs Immat Gran (auto) 0.01 Imm/Tot Granulo (auto) 0.2 VBG pH VBG pCO2 Sodium 146 H Potassium 4.3 Chloride 108 H Carbon Dioxide 33.9 H Anion Gap 8.4 BUN 35.0 H Creatinine 1.59 H Est GFR ( Amer) 38 L Est GFR (Non-Af Amer) 32 L BUN/Creatinine Ratio 22.0 Glucose 105 Calcium 8.1 L Magnesium Total Bilirubin AST ALT Alkaline Phosphatase Troponin I High Sens NT-Pro-B Natriuret Pep Total Protein Albumin Globulin Albumin/Globulin Ratio Urine Color Lt. yellow Urine Clarity Clear Urine pH 5.5 Ur Specific [place] 1.020 Urine Protein Negative Urine Glucose (UA) Negative Urine Ketones Negative Urine Occult Blood Small A Urine Nitrite Negative Urine Bilirubin Negative Urine Urobilinogen 0.2 Ur Leukocyte Esterase Small A Urine RBC 2-5 A Urine WBC 5-10 A Ur Squamous Epith Cells Few A Urine Crystals None seen Urine Bacteria Moderate A Urine Casts Seen A Hyaline Casts Few Urine Mucus Small A Ur Culture Indicated? Yes-[facility] POC Glucose 110 H 11/08/24 12:05 WBC 6.1 RBC 5.66 H Hgb 14.0 Hct 46.8 MCV 82.7 MCH 24.7 L MCHC 29.9 RDW 17.8 H Plt Count 130 L MPV 12.1 Neut % (Auto) 73.5 Lymph % (Auto) 16.2 L Wirt % (Auto) 5.6 Eos % (Auto) 3.9 Baso % (Auto) 0.5 Neut # (Auto) 4.5 Lymph # (Auto) 1.0 L Wirt # (Auto) 0.3 Eos # (Auto) 0.2 Baso # (Auto) 0.0 Abs Immat Gran (auto) 0.02 Imm/Tot Granulo (auto) 0.3 VBG pH 7.346 VBG pCO2 56.2 H Sodium 142 Potassium 3.9 Chloride 103 Carbon Dioxide 32.0 Anion Gap 10.9 BUN 35.0 H Creatinine 1.67 H Est GFR ( Amer) 36 L Est GFR (Non-Af Amer) 30 L BUN/Creatinine Ratio 21.0 Glucose 151 H Calcium 8.5 Magnesium 2.0 Total Bilirubin 0.5 AST 19 ALT 21 Alkaline Phosphatase 150 H Troponin I High Sens 8.4 NT-Pro-B Natriuret Pep 203.0 Total Protein 7.3 Albumin 3.6 Globulin 3.7 Albumin/Globulin Ratio 1.0 Urine Color Urine Clarity Urine pH Ur Specific [place] Urine Protein Urine Glucose (UA) Urine Ketones Urine Occult Blood Urine Nitrite Urine Bilirubin Urine Urobilinogen Ur Leukocyte Esterase Urine RBC Urine WBC Ur Squamous Epith Cells Urine Crystals Urine Bacteria Urine Casts Hyaline Casts Urine Mucus Ur Culture Indicated? POC Glucose Preliminary micro results at discharge 11/08/24 13:35 Urine Culture - Preliminary Urine,Clean Catch Pending - Specimen sent to [facility] Discharge Plan Discharge Disposition: Home, Self-Care Condition: Fair Discharge Medications: New cephalexin 500 mg capsule 500 mg PO Q8H 7 Days Qty: 21 0RF ondansetron 4 mg tablet,disintegrating 4 mg PO Q6H PRN (Reason: nausea and vomiting) Qty: 12 0RF meclizine [Antivert] 25 mg tablet,chewable 25 mg PO QID PRN (Reason: dizziness) Qty: 12 0RF cefdinir 300 mg capsule 600 mg PO DAILY Qty: 20 0RF Continued Eliquis 5 mg tablet 5 mg PO BID atorvastatin 40 mg tablet 40 mg PO .QHS bumetanide 2 mg tablet 2 mg PO DAILY (DME) True Metrix Glucose Test Strip Strip MISCELLANEOUS (DME) blood-glucose meter [Prod77 Pieces Autocode Meter] Kit MISCELLANEOUS calcitriol 0.25 mcg capsule 0.25 mcg PO DAILY cholecalciferol (vitamin D3) 1,250 mcg (50,000 unit) capsule 1,250 mcg PO .QMONTH doxepin 10 mg capsule 20 mg PO .QHS hydrocodone-acetaminophen 5-325 mg tablet 1 tab PO TID PRN (Reason: pain) levothyroxine 300 mcg tablet 300 mcg PO .ACB (DME) lancets [Prodigy Twist Top Lancet] 28 gauge misc MISCELLANEOUS liothyronine 5 mcg tablet 5 mcg PO .noon mirtazapine 15 mg tablet 15 mg PO .QHS nitrofurantoin monohyd/m-cryst 100 mg capsule 100 mg PO DAILY omeprazole 40 mg capsule,delayed release(DR/EC) 40 mg PO .ACB paroxetine HCl 20 mg tablet 20 mg PO .QHS quetiapine 50 mg tablet 50 mg PO .QHS Ozempic 1 mg/dose (4 mg/3 mL) pen injector 1 mg SUBCUT QWEEK tizanidine 4 mg tablet 4 mg PO TID PRN (Reason: muscle spasticity) ropinirole 5 mg tablet 5 mg PO TID cranberry 500 mg capsule 500 mg PO DAILY Rx Instructions: administer with a meal Print Language: Khmer Patient Instructions: Cephalexin (By mouth), Meclizine (By mouth), Ondansetron (By mouth) (Zofran, Zofran ODT, Zuplenz), Cefdinir (By mouth), Urinary Tract Infection in Older Adults (DC) Forms: Portal Instructions Follow Up Appointments: @ 3:45pm with Dr. Nguyen [phone] Discharge Date/Time: 11/09/24 14:58
[2024-11-09] MEDS: CALCITRIOL 0.25 MCG CAPSULE PO (09:04)
[2024-11-09] MEDS: APIXABAN 5 MG TABLET PO (09:04)
[2024-11-09] MEDS: ACETAMINOPHEN 500 MG TABLET 1000 MG PO (09:07)
--- NOTE | 2024-11-09 10:04 | CM.NOTE ---
Medicare Outpatient Observation Notice discussed with pt, pt verbaizes understanding and signs paper. Original given to pt and copy placed on pt's chart.
[2024-11-09] MEDS: LIOTHYRONINE SODIUM 5 MCG TABLET PO (11:59)
--- NOTE | 2024-11-10 14:59 | CM.DCFOLLOWU ---
Person spoke with:patient How are you feeling?well How is your pain?none Did you understand your discharge instructions?yes Do you have any questions about your discharge instructions?no Were you given any prescriptions at discharge?yes Were you able to get your prescriptions filled?yes Do you understand how to take your medications as ordered?yes Do you have any questions about your follow up appointment and do you plan to keep your follow up appointment? no questions, follow up reviewed Is there anything else that you would like to discuss? no Questions/Comments/Concerns/Other:none
--- NOTE | 2024-11-14 13:41 | CM.NOTE ---
Urine culture results faxed to Dr. Nguyen's office after speaking with office staff. Office appointment November 17, 2024.
== END 2024-11-09 14:58 | disposition home or self-care (01) ==
LOC: ER 17:25 → MS 19:53
PROVIDERS: Admitting Provider Family Medicine; Emergency Provider Emergency Medicine; PCP Psychiatry & Neurology Neurology; Visit Provider Family Medicine
DX: E86.0 Dehydration (principal); R09.02 Hypoxemia; R42 Dizziness and giddiness; R11.2 Nausea with vomiting, unspecified; Z99.3 Dependence on wheelchair; N39.0 Urinary tract infection, site not specified; Z90.710 Acquired absence of both cervix and uterus; Z90.49 Acquired absence of other specified parts of digestive tract; Z96.651 Presence of right artificial knee joint; E89.0 Postprocedural hypothyroidism; E78.00 Pure hypercholesterolemia, unspecified; F41.1 Generalized anxiety disorder; Z79.890 Hormone replacement therapy
CPT/HCPCS: 36415; 70450; 71045; 80048; 80053; 81001; 82800; 82948; 83735; 83880; 84484; 85025; 87086; 87150; 93005; 94667; 94761; 96361; 96365; 96375; 97165; 97535; 99285; G0378; J0696; J0780; J2405